=== PATIENT | female | born 1995 | race Caucasian/White ===

== ENCOUNTER 2017-05-22 17:02 | Observation (INO) | payer MEDICAID ==
[~2017-05-22] VITALS: Ht 160 cm; Wt 55.1 kg
[~2017-05-22 17:02] MED LIST: AMOXIL500 M1 PO; AMOXIL500 MG PO; BACTRIM DS 8001 TAB PO; CEPHALEXIN500 MG PO; FLINTSTONES COM1 CTB PO; IBUPROFEN400 MG PO; MOTRIN 400MG.400 MG PO; NICOTINE T21 MG/24 H TD; NOMEDS *; NOMEDS XX; PERCOCET 5/3251 EACH PO; PHENERGAN 25MG.25 MG PR; PNV-DHA1 SGL PO; PRENATAL PLUS1 TA1 PO; PRENTAL 1 PLUS1 TAB PO; ZOFRAN4 MG PO; Zofran4 MG PO
[2017-05-22 17:40] VITALS: BP 113/73
[2017-05-22] MEDS ORDERED: PRENATAL PLUS1 TA1 PO (17:44)
[2017-05-22] MEDS ORDERED: IRON325 M2 PO (17:45)
[2017-05-22 17:48] LABS: URINE BILIRUBIN - DIPSTICK NEGATIVE (NEG); URINE BLOOD NEGATIVE (NEG)
[2017-05-22 18:14] LABS: URINE SQUAMOUS CELLS TNTC #/hpf (0-5)
[2017-05-22 19:40] VITALS: BP 110/65
--- NOTE | 2017-05-23 08:20 | ACUTE CARE PROGRESS NOTE (QUA) ---
Progress Notes Subjective Date 05/23/17 Time 0816 Note She was admitted yesterday with labor. We attempted to stop labor with fluid bolus however she continued to have contractions. Her heart rate was slightly elevated in the 105-110 range so we could not give her Brethine. We started her on magnesium sulfate and she received a 4 g bolus and then 2 g an hour. She is no longer destiny and she feels a lot better. Her fibronectin was negative. She did have some contamination in her urine and we elected to start her on Ancef 1 g every 8 hours. She also received 12 mg IM of Celestone and she will receive a second dose later on this afternoon. We have stopped her magnesium sulfate and will see how she does over the next few hours. She is doing much better we will consider sending her home this afternoon. Patient/family reports: feeling better, no complaints Objective Findings Last VS-Temp:98.2 B/P:110/65 Pulse:109 Resp:18 SaO2: Last weight lbs:121 oz:6 K.055 Method:Floor Scales Laboratory Tests 05/23/17 0615: Magnesium 4.7 H 05/22/17 1725: Fibronectin NEGATIVE 05/22/17 1712: Urine Color YELLOW, Urine Appearance CLOUDY, Urine pH 7.0, Ur Specific [place] 1.020, Urine Protein TRACE H, Urine Ketones 2+ H, Urine Blood NEGATIVE, Urine Nitrate NEGATIVE, Urine Bilirubin NEGATIVE, Urine Urobilinogen 1.0, Ur Leukocyte Esterase 1+ H, Urine RBC NONE, Urine WBC 3-5, Ur Squamous Epith Cells TNTC, Urine Bacteria 4+, Urine Glucose NEGATIVE Microbiology 05/22 1712 URINE CC: Urine Culture - RES Exam General appearance: normal appearance, alert, awake, no acute distress Reviewed: vital signs, lab results Assessment/Plan Problem List 1. labor in third trimester Patient condition Improving, Stable Plan: continue current care This inpt stay is expected to cross 2 MNs from start of care No Comments: She seems to be doing much better this morning. She is not having any further episodes of contractions. The nonstress test is reactive. She has been eating and drinking. We have stopped her magnesium sulfate. We will see how she does over the next few hours. She will receive a second dose of Celestone prior to going home. at [id number]
[2017-05-23 08:30] VITALS: BP 104/52
--- NOTE | 2017-05-23 17:38 | Discharge Summary ---
Discharge Summary Admission date: 05/22/17 Discharge date: 05/23/17 Discharge diagnoses: labor Clinical note: She is a 22-year-old 5 para 4 who was 33 weeks gestational age. She came in having contractions and as result of that was admitted. Course in hospital: She was having regular contractions every 2 minutes and her cervix was found be 1-1/2 cm and 50 percent effaced. She was initially started on some IV fluids but this did not stop her contractions. Her heart rate was slightly elevated and as result of this we elected not to give her Brethine. We started her on magnesium sulfate. She received a 4 g Allis followed by 2 g an hour. She was observed overnight. She did receive Celestone as well as antibiotics. She has been off her magnesium sulfate all day and has had no further episodes of contractions. Plans for ongoing care: She is discharged home to follow-up with me in approximately a weeks' time. She' s been given her second dose of Celestone prior to discharge. Discharge medications She will continue with her vitamins and iron. DC/follow-up instructions She was given the usual instructions with respect to limiting her activity, and sexual activity. Condition at discharge Stable and improved at [id number]
--- OUTSIDE RECORDS SUMMARY | 2017-05-24 09:58 | External Medical Summary Rpt ---
Author Author , JEREMIAH DANIELS Address Unknown Phone [email or web address] Care Team Providers Care Coremaking Machine Setter Name Role Phone ABORDO, ALICE G, Unavailable Unavailable ABORDO, ALICE G AGOMAA, CAREN O, Unavailable Unavailable AGOMAA, CAREN O BESSON SUELLEN, BESSON Unavailable Unavailable SUELLEN LONI, YFN L, Unavailable Unavailable LONI, YFN L GILL, GILL Unavailable Unavailable GILL ALL, GILL ALL Unavailable Unavailable [facility] BURGER AND, BURGER Unavailable Unavailable AND CHIPPS NARESH & Unavailable Unavailable DUBILIER, CHIPPS NARESH & DUBILIER ELIEZER MARTINS Unavailable Unavailable MARTINS FRANCISCO J, MARTINS Unavailable Unavailable FRANCISCO J ELIEZER MARX MARTINS Unavailable Unavailable FRANCISCO J [facility], [facility] [place]available [place], [facility] Unavailable Unavailable THE INDEPENDENCE, [facility] ANESTH OF [facility], Unavailable Unavailable [facility] [place]available [place]available [place], [facility] [place] [facility] Unavailable Unavailable [place] [facility] JONATAN JOON, JONATAN Unavailable Unavailable JOON UMBERTO JOON, UMBERTO JOON Unavailable Unavailable GREISER HUNG, GREISER Unavailable Unavailable HUNG ROSS CHEN, Unavailable Unavailable ROSS CHEN PADMINI, NEREYDA Unavailable Unavailable PADMINI [facility] Unavailable Unavailable [place], [facility] Unavailable Unavailable CENTER, [facility] Unavailable Unavailable INC, [facility] JESSICA SHERON, Unavailable Unavailable JESSICA SHERON [facility], Unavailable Unavailable [facility] YURIY CARO Unavailable Unavailable SUELLEN CHRIS MONACO, Unavailable Unavailable CHRIS MONACO [facility], Unavailable Unavailable [facility] Unavailable Unavailable IM[facility]ING [facility], [facility] MARIA IV HUNG, MARIA Unavailable Unavailable IV HUNG MARIA IV HUNG, MARIA Unavailable Unavailable IV [facility] [place] REMY STACY, REMY Unavailable Unavailable STACY TONJA SHE, TONJA SHE Unavailable Unavailable TONJA SHE, TONJA SHE Unavailable Unavailable MARILYN MAJOR, Unavailable Unavailable MARILYN MAJOR [facility] Unavailable Unavailable SERVICES, [facility] SUMI CESAR, Unavailable Unavailable SUMI CESAR SAIMA SUELLEN, SAIMA Unavailable Unavailable SUELLEN [facility] Unavailable [facility] Unavailable Unavailable LAB, [facility] Unavailable Unavailable LAB, [facility] PICKLESIMER JR ZARINA, Unavailable Unavailable PICKLESIMER JR ZARINA PICKLESIMER JR ZARINA, Unavailable Unavailable PICKLESIMER JR ZARINA [facility] Unavailable Unavailable [facility], [facility] Unavailable Un[facility], [facility] Unavailable Unavailable [facility], [facility] QUEZADA JAM, QUEZADA Unavailable Unavailable JAM SCIFRES ANG, SCIFRES Unavailable Unavailable ANG SCIFRES ANG, SCIFRES Unavailable Unavailable ANG FRAZIER RY, FRAZIER RY Unavailable Unavailable SOKAN BAB, SOKAN BAB Unavailable Unavailable SOKAN, CLARIBEL O, Unavailable Unavailable SOKAN, CLARIBEL O [facility] Unavailable Unavailable [facility], [facility] Unavailable Unavailable [facility], [facility] SOTINGEANU CARLEEN, Unavailable Unavailable SOTINGEANU CARLEEN SOTINGEANU CARLEEN, Unavailable Unavailable SOTINGEANU CARLEEN [facility], Unavailable Unavailable [facility] Unavailable Unavailable GUARD DRIVER , [facility] Unavailable Unavailable [place], [facility] Unavailable Unavailable PHYSICIANS, [facility], Unavailable Unavailable [facility] JASWANT KWOK, MICHAUD Unavailable Unavailable RISSA HWANG, DAKOTA Unavailable Unavailable [facility] Unavailable Unavailable [facility], [facility] Un[facility]available [facility] [place] [facility] UTTER ADAME, UTTER ADAME Unavailable Unavailable [facility] Un[facility]available [facility] Unavailable Unavailable [facility] # Unavailable Unavailable [id number], [facility] # [id number] WEHRMAN III HUNG, Unavailable Unavailable WEHRMAN III HUNG WEHRMAN III HUNG, Unavailable Unavailable WEHRMAN III HUNG ANDREI SEA, WELLS SEA Unavailable Unavailable [facility] Unavailable Unavailable OF [place], [facility] Juliette RUFF, NASEEM, Unavailable Unavailable A C Purpose Continuity of Care Document - 06-10-2008 through 2016 Problems Code Diagnosis DOS Provider Status Z3480 ENC 03-21-2017 [facility]PER[facility]YS[facility]ANS OTH NORMAL GROUP PREG UNS TRIMESTER Z3492 ENC 02-19-2017 [facility] NORMAL IMAGING ASS UNS 2 TRIMESTER Z36 ENCOUNTER 02-19-2017 [facility] FOR [facility] SCREENING OF MOTHER Z3A20 20 WEEKS 02-19-2017 [facility] GESTATION MEDICAL OF IMAGING ASS Z113 ENCOUNTER 12-21-2016 [facility] SCREEN [facility] INFECTIONS SEXL MODE TRANSMISSN Z3481 ENC 12-21-2016 [facility] SUPERVISION [facility] OTH NORMAL 1 TRIMESTER H33276 UTERINE 11-29-2016 [facility] SIZE-DATE [facility] DISCREPANCY INC FIRST TRIMESTER Z3491 ENC 11-29-2016 [facility] SUPERVISION MEDICAL NORMAL IMAGING ASS UNS 1 TRIMESTER Z3A08 8 WEEKS 11-29-2016 [facility] GESTATION MEDICAL OF IMAGING ASS Z3201 ENCOUNTER 11-23-2016 [facility] FOR [facility] GROUP TEST RESULT POSITIVE N3289 OTHER 07-31-2016 ST. SPECIFIED [facility] DISORDERS ANNEL OF BLADDER R1013 EPIGASTRIC 07-31-2016 ST. PAIN [facility] ANNEL R197 DIARRHEA 07-31-2016 [facility] UNSPECIFIED [facility] K639 DISEASE OF 07-17-[address] [facility] INTESTINE GASTROENTER UNSPECIFIED OLOGY A Z720 TOBACCO USE 07-10-[address] 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 L309 DERMATITIS 12-04-2015 [facility] UNSPECIFIED [facility] INC O4393 UNSPECIFIED 10-21-2015 [facility] PLACENTAL NARESH & DISORDER DUBILIER THIRD TRIMESTER O720 THIRD-STAGE 10-21-2015 [facility] HEMORRHAGE [facility] O722 DELAYED AND 10-21-2015 [facility] SECONDARY [facility]YS[facility]ANS GROUP HEMORRHAGE O730 RETAINED 10-21-2015 [facility] PLACENTA PHYSICIANS WITHOUT GROUP HEMORRHAGE O80 ENCOUNTER 10-21-2015 [facility] FOR [facility]ANS FULL-TERM GROUP UNCOMPLICAT ED DELIVERY R0602 SHORTNESS 10-21-2015 [facility] Z370 SINGLE LIVE 10-21-2015 [facility] Z3A00 WEEKS OF 10-21-2015 [facility] GESTATION ANESTH OF OF THE BLUE NOT SPECIFIED Z3A39 39 WEEKS 10-21-2015 [facility] GESTATION [facility] OF INC Z9889 OTHER 10-21-2015 [facility] SPECIFIED MEDICAL POSTPROCEDU IMAGING ASS [facility] [id number] MAT CARE 09-27-2015 [facility] KNOWN/SUSP PHYSICIANS PLACNTL GROUP INSUFF 3RD TRI FET 1 V221 SUPERVISION 06-24-2015 [facility] OF OTHER PHYSICIANS NORMAL GROUP V2881 ENCOUNTER 06-15-2015 [facility] FOR MEDICAL ANATOMIC IMAGING ASS SURVEY 73909 OTHER 05-25-2015 [facility] SPECIFED PHYSICIANS COMPLICATIO GROUP N ANTEPARTUM V745 SCREENING 05-11-2015 [facility] EXAMINATION LLC FOR VENEREAL DISEASE 78299 UNSPEC 03-04-2015 [facility] HEMORRHAGE MEDICAL EARLY IMAGING ASS ANTEPARTUM 08289 UNSPECIFIED 03-04-2015 SOTINGEANU ANTEPARTUM CARLEEN HEMORRHAGE ANTEPARTUM 3670 HYPERMETROP 12-31-2014 SCIFRES ANG IA 3671 MYOPIA 12-25-2014 SCIFRES ANG 650 NORMAL 09-28-2014 [facility] DELIVERY PHYSICIANS GROUP 82841 OTH&UNS CRD 09-28-2014 [facility] ENTANGL [facility] W/O COMPRS INC COMP L&D DELIV 63530 RETAINED 09-28-2014 [facility] PLACENTA PHYSICIANS WITHOUT GROUP HEMORR PP COND/COMP 21455 RETN 09-28-2014 [facility] PORTIONS [facility] PLCNTA/MEMB INC W/O HEMORR DEL W/COMPL V270 OUTCOME OF 09-28-2014 [facility] DELIVERY [facility] SINGLE INC LIVEBORN 72251 ABNORMAL 07-17-2014 ELIEZER FRANCISCO J MATERNAL GLUCOSE TOLERANCE ANTEPARTUM V283 ENCOUNTER 05-27-2014 ELIEZER FRANCISCO J ROUTINE SCREEN MALFORMATIO N ULTRASONIC 6238 OTHER 02-10-2014 WEHRMAN III SPECIFIED HUNG NONINFLAMMA TORY DISORDER VAGINA V222 02-10-2014 [facility], MEDICAL INCIDENTAL IMAGING ASS 436 ACUTE BUT 11-24-2013 [facility] MEDICAL CEREBROVASC EQUIPME ULAR DISEASE 3480 CEREBRAL 11-22-2013 [facility] PH[facility] 10999 UNSPECIFIED 11-22-2013 TONJA SHE CEREBRAL ARTERY OCCLUSION W/INFARCT 80169 LEUKOCYTOSI 11-21-2013 MARIA IV S HUNG UNSPECIFIED 02379 UNSPEC 11-21-2013 [facility]&JIMENES AMBULANCE DEFICIT DUE CEREBRVASC DISEASE 03577 OTHER 11-21-2013 RADIOLOGY MALAISE AND ASSOCIATES FATIGUE [facility] 7850 UNSPECIFIED 11-21-2013 [facility] AMBULANCE TACHYCARDIA 67755 DYSPHAGIA 11-21-2013 MARIA IV UNSPECIFIED HUNG 7930 NONSPECIFIC 11-21-2013 [facility] ABN FNDNG RAD & OTH EXM SKULL & HEAD V7189 OBSERVATION 11-21-2013 [place] OTHER OF SPECIFIED [place] SUSPECTED PHY CONDITIONS 7242 LUMBAGO 11-20-2013 RADIOLOGY [facility] 08724 ESOPHAGEAL 11-11-2013 ST REFLUX [facility] PH[facility]ICIANS 7245 UNSPECIFIED 11-11-2013 ST BACKACHE [facility] PHYSIC[facility] 78978 ABDOMINAL 11-11-2013 ST PAIN, [facility] UNSPECIFIED PHYSICIANS SITE 632 MISSED 08-29-2013 [facility] [place] 26961 UNSPECIFIED 08-17-2013 ST. VIRAL [facility] INFECTION ANNEL IN CCE & UNS SITE 10557 OT CURRENT 08-17-2013 ST. MAT CONDS [facility] CLASSIFIABL ANNEL E ELSW ANTPRTM 08826 TOB USE D/O 08-17-2013 ST. COMP PG [facility] /PP ANNEL ANTEPARTM COND/COMP 02088 OTHER 06-24-2013 ST CHRONIC [facility] PAIN PHYSICIANS 81881 DIARRHEA 06-24-2013 ST [facility] PH[facility] V700 ROUTINE 06-24-2013 GENERAL [facility] EXAM@HEALTH CARE FACL 86664 NAUSEA WITH 01-23-2013 ST VOMITING [facility] PHYSICIANS 26900 ABDOMINAL 01-23-2013 ST PA[facility] EPIGASTRIC PHYSICIANS 6264 IRREGULAR 12-26-2012 [facility] MENSTRUAL HEALTH CYCLE CLINIC OF [place] V2549 SURVEILLANC 12-26-2012 [facility]OMEN'[facility] E OTH PREV HEALTH PRSC CLINIC OF CONTRACEPT [place] METHOD 6262 EXCESSIVE 12-19-2012 [facility] OR FREQUENT HEALTH CLINIC OF MENSTRUATIO [place] N 462 ACUTE 11-06-2012 [facility] V242 ROUTINE 10-02-2012 [facility] FOLLOW-UP 71197 OT 08-29-2012 [facility] PLACENTAL HEALTH CONDS CLINIC OF AFFECT [place] MANAGEMENT MOTH DELIV 46577 POOR 08-28-2012 [facility] GROWTH MGMT HEALTH MOTH CLINIC OF ANTPRTM [place] COND/COMP 57983 ABN MAT 07-01-2012 [facility] GLUCOSE [facility] TOLERANCE INC COMPL PG CB/PP UNS EOC 0794 HUMAN 06-19-2012 PATHOLOGY & PAPILLOMA CYTOLOGY VIRUS IN LAB CCE & UNS SITE 6160 CERVICITIS 06-19-2012 PATHOLOGY & AND CYTOLOGY ENDOCERVICI LAB TIS 24209 PAP SMER 06-19-2012 [facility] CERV HEALTH W/ATYPICAL CLINIC OF SQUAMOUS [place] CELLS UNDET 94103 OTH 06-19-2012 [facility] ABNORMAL HEALTH PAPANICOLAO CLINIC OF U SMEAR [place] CERVIX&CERV HPV 42108 DEHYDRATION 04-03-2012 [facility] 48354 MILD 04-03-2012 [facility] HYPEREMESIS EMERGENCY GRAVIDARUM SERVICES UNSPEC EPIS CARE 60113 MILD 04-03-2012 [facility] HYPEREMESIS [facility] GRAVIDARUM INC ANTEPARTUM V7242 01-15-2012 [facility] FELIPE EXAMINATION HEALTH OR TEST CENTER POSITIVE RESULT 58798 CERV HIGH 11-14-2011 PATHOLOGY & RISK HUMAN CYTOLOGY PAPILLOMAVI LAB MELISSA DNA TEST POS 19506 FIRST-DEGRE 10-05-2011 ELIEZER FRANCISCO J E PERINEAL LACERATION WITH DELIVERY 2859 UNSPECIFIED 10-04-2011 [facility] ANEMIA [facility] 76401 MATERNAL 10-04-2011 [facility] W/DELIVERY INC W/CURRENT PPC 46334 DECR 10-04-2011 ELIEZER MARX MOVMNTS MGMT MOTH ANTPRTM COND/COMP 45497 OTHER 10-04-2011 [facility] IMMEDIATE [facility] INC HEMORRHAGE W/DELIVERY V220 SUPERVISION 09-20-2011 ELIEZER FRANCISCO J OF NORMAL FIRST 5990 URINARY 03-27-2011 [facility] TRACT [facility] INFECTION INC SITE NOT SPECIFIED 71016 INFECTIONS 03-27-2011 [facility] EMERGENCY GENITOURINA SERVICES RY TRACT ANTEPARTUM 1121 CANDIDIASIS 02-28-2011 PATHOLOGY & OF [facility] CYTOLOGY AND VAGINA LAB 2662 OTHER 02-16-2011 [facility] FELIPE B-COMPLEX HEALTH DEFICIENCIE CENTER S 7802 SYNCOPE AND 08-08-2010 [facility] 94489 VOMITING 08-08-2010 [facility] AL[facility] 4619 ACUTE 03-11-2010 FAM[facility] SINUSITIS, MEDICAL UNSPECIFIED SPECIALITY CLINIC 4737 ALLERGIC 03-11-2010 FAMILY RHINITIS MEDICAL CAUSE SPECIALITY UNSPECIFIED CLINIC 78130 HORDEOLUM 01-12-2010 [facility] EXTERNUM MEDICAL [facility] CLINIC 4610 ACUTE 01-12-2010 FAM[facility] MAXILLARY MEDICAL SINUSITIS SPECIALITY CLINIC 49719 ACUTE 01-12-2010 [facility] 64024 CHEST PAIN 10-15-2009 [facility]NSPECIFIED [facility] 9945 EXHAUSTION 10-15-2009 [facility] DUE TO [facility] EXERTION 15954 NAUSEA 08-25-2009 [facility]ONE [facility] 22387 CLOSED 07-18-2009 [facility] FRACTURE [facility] PHALANX OR PHALANGES HAND 02415 OPEN 07-18-2009 [place] [facility] DISTAL PHALANX OR PHALANGES HAND 56402 PAIN IN 02-08-2009 [facility] JOINT, MEDICAL SHOULDER IMAGING REGION ASS[facility] 97379 PAIN IN 02-08-2009 [facility] JOINT, MEDICAL FOREARM IMAGING ASSOCIATES 23565 OTHER 02-08-2009 [facility] TENOSYNOVIT EMERGENCY IS OF HAND SERVICES AND WRIST ASSOCIATES 6822 CELLULITIS 06-10-2008 [facility] AND ABSCESS [facility] OF TRUNK INC 6869 UNSPEC 06-10-2008 [facility] SKIN&SUBCUT ANEOUS TISSUE F41.1 Generalized anxiety disorder G89.29 Other chronic pain M25.539 Pain in unspecified wrist M54.5 Low back pain N93.9 ABNORMAL UTERINE AND VAGINAL BLEEDING, UNSPECIFIED O20.0 THREATENED R10.9 Unspecified abdominal pain Z33.1 STATE, INCIDENTAL Medications Na ND Rx Da Fi Fi Am Da Di Ph RX Ph St me C No te ll ll ou ys ag ar # ys at rm s nt no ma ic us Or Da si cy ia de te s n re d FE 57 05 06 30 30 00 CL Ac RR 66 -0 -0 .0 00 IN ti OU 40 8- 2- 00 00 IC ve S 07 20 20 43 BARRIENTOS 11 17 17 05 PH LF 0 12 AR AT MA E CY 32 5 MG TA BL ET FE 64 07 09 6 30 30 EA 23 CL Ac RR 37 -1 -[address] 27 AR ti OU 60 2- 8- 00 SI 26 KE ve S 80 20 20 DE BARRIENTOS 91 11 11 DE LF 0 PH RE AT AR K E MA J 32 CY 5 MG OF TA CY BL NT ET HI AN A FE 64 07 08 6 30 30 EA 23 CL Ac RR 37 -1 -[address] 27 AR ti OU 60 2- 3- 00 SI 26 KE ve S 80 20 20 DE BARRIENTOS 91 11 11 DE LF 0 PH RE AT AR K E MA J 32 CY 5 MG OF TA CY BL NT ET HI AN A FE 00 07 07 6 30 30 EA 23 CL Ac RR 67 -1 -[address] 27 AR ti OU 70 2- 2- 00 SI 26 KE ve S 07 20 20 DE BARRIENTOS 01 11 11 DE LF 0 PH RE AT AR K E MA J 32 CY 5 MG OF TA CY BL NT ET HI AN A AM 00 06 06 0 21 7 CL 24 GA Ac OX 78 -1 -1 .0 IN 03 IN ti IC 12 3- 4- 00 IC 69 EY ve IL 61 20 20 LI 30 11 11 PH MT N 5 AR CH 50 MA AE 0 CY L MG S LL CA C PS UL E WY 65 05 05 9 30 30 WA 71 CL Ac EN 16 -0 -1 .0 L- 18 AR ti AT 20 6- 5- 00 MA 12 KE ve AL 66 20 20 RT 7 [address] 0 PH RE US AR K MA J TA CY BL # ET 10 05 91 LO 45 05 05 2 30 30 BR 34 AG Ac RA 80 -2 -2 .0 EA 72 OM ti TA 20 8- 8- 00 TH 25 AA ve DI 65 20 20 IT NE 08 10 10 T JE 7 WY BARRIENTOS 10 ES S CR O MG IP TI TA ON BL ET CE NT ER WY 50 05 05 0 70 7 BR 34 AG Ac ED 38 -2 -2 .0 EA 72 OM ti NI 30 8- 8- 00 TH 26 AA ve SO 04 20 20 IT LO 00 10 10 T JE NE 4 WY BARRIENTOS 5 ES S CR O MG IP /5 TI ON ML CE SO NT LN ER AM 66 05 05 0 20 10 BR 34 AG Ac OX 68 -2 -2 0. EA 72 OM ti -C 51 8- 8- 00 TH 27 AA ve LA 01 20 20 0 IT V 20 10 10 T JE 40 2 WY BARRIENTOS 0- ES S 57 CR O IP MG TI /5 ON ML CE NT BARRIENTOS ER SP GE 24 03 03 0 5. 7 BR 34 AG Ac NT 20 -3 -3 00 EA 48 OM ti AM 80 1- 1- 0 TH 60 AA ve IC 58 20 20 IT IN 06 10 10 T JE 0 WY BARRIENTOS 0. ES S 3% CR O IP EY TI E ON DR OP CE S NT ER 00 03 03 0 5. 5 BR 34 AG Ac 14 -3 -3 00 EA 48 OM ti 31 1- 1- 0 TH 61 AA ve 47 20 20 IT 70 10 10 T JE 1 WY BARRIENTOS ES S CR O IP TI ON CE NT ER 68 03 03 0 28 14 BR 34 WI Ac 82 -2 -2 .0 EA 47 LL ti 00 9- TH 97 IA ve 06 20 20 IT MS 30 10 10 T 9 WY AL ES LY CR SO IP N TI ON CE NT ER 59 03 03 0 20 10 BR 34 WI Ac 70 -2 -2 0. EA 47 LL ti 20 TH 98 IA ve 80 20 20 0 IT MS 01 10 10 T 6 WY AL ES LY CR SO IP N TI ON CE NT ER LO 45 03 03 3 30 30 BR 34 AB Ac RA 80 -0 -0 .0 EA 36 OR ti TA 20 5- 5- 00 TH 70 DO ve DI 65 20 20 IT NE 08 10 10 T JR 7 WY 10 ES ME CR LE MG IP CI TI O TA ON G BL ET CE NT ER AM 00 03 03 0 28 14 BR 34 DE Ac OX 14 -0 -0 .0 EA 36 LO ti IC 39 5- 5- 00 TH 71 NG ve IL 95 20 20 IT LI 10 10 10 T OL N 1 WY IV 87 ES ER 5 CR K MG IP TI TA ON BL ET CE NT ER MA 51 01 02 00 59 1 EA 16 WR Ac LA 67 -3 -[address] 17 IG ti TH 25 0- 1- 00 SI 18 HT ve IO 27 20 20 DE N 70 10 10 AR 0. 4 PH DY 5% AR C MA LO CY TI ON OF CY NT HI AN A LO 45 11 11 00 14 14 TYRELL 33 AB Ac RA 80 -1 -[address] 87 OR ti TA 20 ON 64 DO ve DI 65 20 20 NE [address] HUTTON 7 UG 10 ME IN LE MG C CI O TA G BL ET WY 00 11 11 00 20 4 TYRELL 33 AB Ac OM 78 -1 -[address] 87 OR ti ET 11 ON 65 DO ve MILLS 83 20 20 ZI [address] HUTTON NE 1 UG ME 25 IN LE C CI MG O G TA BL ET RA 53 11 11 00 20 10 TYRELL 33 AB Ac NI 74 -1 -[address] 87 OR ti TI 60 1- 9- 00 ON 66 DO ve DI 25 20 20 NE [address] HUTTON 0 UG 15 ME 0 IN LE MG C CI O TA G BL ET LO 45 10 11 00 14 14 TYRELL 33 AB Ac RA 80 -2 -[address] 80 OR ti TA 20 3- 5- 00 ON 02 DO ve DI 65 20 20 NE [address] HUTTON 7 UG 10 ME IN LE MG C CI O TA G BL ET TA 00 10 11 00 10 5 TYRELL 33 AB Ac MT 00 -2 -[address] 80 OR ti FL 40 3- 5- 00 ON 01 DO ve U 80 20 20 [address] HUTTON 5 UG MG ME IN LE CA C CI PS O UL G E CE 00 10 10 00 30 10 TYRELL 33 GR Ac PH 09 -0 -[address] 72 EN ti AL 33 5- 2- 00 ON 38 TZ ve EX 14 20 20 IN [address] BINGHAM 1 UG RN 50 ER 0 IN MG C CA PS UL E AC 00 10 10 00 12 3 TYRELL 33 GR Ac ET 09 -0 -[address] 72 EN ti AM 30 5- 2- 00 ON 39 TZ ve IN 15 20 20 OP [address] BINGHAM HE 0 UG RN N- ER CO IN D C #3 TA BL ET 60 05 06 00 12 5 EA 12 RI Ac 25 -2 -[address] 89 SH ti 80 6- 4- 00 SI 30 ER ve 23 20 20 0 DE 91 09 09 RI 6 PH CH AR AR MA D CY OF CY NT HI AN A 66 11 12 00 20 10 EA 10 WR Ac 99 -1 -[address] 30 IG ti 30 7- 4- 00 SI 45 HT ve 53 20 20 DE 40 08 08 AR 2 PH DY AR C MA CY OF CY NT HI AN A BARRIENTOS 53 08 09 00 28 14 EA 99 No Ac LF 48 -2 -[address] 24 t ti AM 90 7- 1- 00 SI 20 Av ve ET 14 20 20 DE ai HO 60 08 08 la XA 1 PH bl ZO AR e LE MA -T CY MP OF DS CY NT TA HI BL AN ET A Procedures Procedure DOS [place] [address] [facility] 7 MEDICAL AFTER 1ST IMAGING TRIMEST ASS 1/1[place] [address]11 [facility] UTERUS 7 [facility] W/DETAIL INC INC KARIN 1ST GESTATION COLLECTIO 41157 [facility] LOMELI N VENOUS 7 [facility] BLOOD INC INC VENIPUNCT URE IADNA 18673 [facility] CHLAMYDIA 7 [facility] TRACHOMAT IS AMPLIFIED PROBE TQ CYTP C/V 65248 [facility] AUTO THIN 7 [facility] LYR PREPJ SCR MNL RESCR PHYS IADNA 07497 [facility] NEISSERIA 7 [facility] GONORRHOE AE AMPLIFIED [place] T[place] PREG 04956 [facility] L[facility]ELI UTERUS 7 [facility] REAL TIME INC INC W/IMAGE DCMTN TRANSVAG URINE 53133 [facility] MARTINS 7 PHYSICIAN TEST S GROUP VISUAL COLOR CMPRSN METHS DRUG TEST 46042 [facility] ELIEZER PRSMV 7 PHYSICIAN QUAL DIR S GROUP OPTICAL OBS PER DAY LOCM Q9967 [facility] 300-399 6 [facility] MG/ML ANNEL ANN[place] [address] [facility] ABDOMEN & 6 [facility] PELVIS ANNEL ANNEL W/CONTRAS T MATERIAL SPECIAL 51879 [facility] STAIN 6 GROUP 1 GASTROENT GASTROENT MICROORGA EROLOGY A EROLOGY A NISMS I&R SPCL STN 86306 [facility] 2 I&R 6 EXCPT GASTROENT GASTROENT MICROORG/ EROLOGY A EROLOGY A ENZYME/IM CYT EGD 56514 [facility] TRANSORAL 6 SHERON BIOPSY GASTROENT SINGLE/[place] [address] [facility] SURG 6 PATHOLOGY GASTROENT GASTROENT EROLOGY A EROLOGY A GROSS&[place] [address] AMYLASE 6 [facility] [address] [place] [address] THYROID 6 [facility] STIMULATI MED CTR MED CTR NG GUARD DR[address] [address] LIPASE 6 [facility] MED CTR GUARD [address] COMPRE[address] SIVE 6 [facility] METABOLIC MED CTR MED CTR PANEL GUARD DRIVER ST GUARD DRIVER ST BLOOD [address] COUNT 6 [facility] COMPLETE MED CTR MED CTR AUTO&AUTO GUARD DRIVER ST GUARD DRIVER ST DIFRNTL WBC COLLECTIO [address] N VENOUS 6 [facility] BLOOD MED CTR MED CTR VENIPUNCT GUARD DRIVER ST GUARD DRIVER ST URE OPHTH [address] [facility] [facility] MEDICAL 6 ANG ANG XM&EVAL COMPRHNSV ESTAB PT 1/> CURETTAGE 35174 [facility] ELIE[facility]ER 6 PHYSICIAN FRANCISCO J POSTPARTU S GROUP M VAGINAL 92272 [facility] DELIVERY 6 PHYSICIAN FRANCISCO J ONLY S GROUP W/POSTPAR ERINN CARE ECG 47719 SHILPA MASSEY ROUTINE 6 SUELLEN SUELLEN ECG W/LEAST 12 LDS I&R ONLY NEURAXIAL 42913 [facility] 6 ANESTH JAIDEN ANALG/ANE OF THE S PLND BLUE VAGINAL DELIVERY RADIOLOGI 28966 [facility] GILL ALL C 6 MEDICAL EXAMINATI IMAGING ON CHEST ASS SINGLE VIEW FRONTAL EXTRACTIO [id number] [facility] L[facility] N POC 6 [facility] INC INC NATURAL/A RTIF OPENING DELIVERY [id number] YANI LOMELI PRODUCTS 6 [facility] INC CONCEPTIO [place]TERNAL L[place] V 01317 [facility] REMY SURG 6 NARESH & STACY PATHOLOGY DUBILIER GROSS&JOON ROSCOPIC EXAM PARTICLE 54536 YANI L[facility]I AGGLUTINA 5 [facility] TION INC INC SCREEN EACH ANTIBODY HANDLG&/O 33017 [facility] R CONVEY 5 PHYSICIAN FRANCISCO J OF SPEC S GROUP FOR TR OFFICE TO LAB DOPPLER 31663 [facility] VELOCIMET 5 PHYSICIAN FRANCISCO J RY S GROUP UMBILICAL ARTERY US PREG 90133 [facility] UTERUS 5 PHYSICIAN FRANCISCO J REAL TIME S GROUP F/U TRNSABDL PER FETUS 73662 [facility] BIOPHYSIC 5 PHYSICIAN FRANCISCO J AL S GROUP PROFILE W/O NON-STRES [place] TESTING [place] PREG 46615 [facility] UTERUS 5 MEDICAL [place] AFTER 1ST IMAGING TRIMEST ASS GESTATION US PREG 64686 Y[facility] L[facility]ELI UTERUS 5 [facility] W/DETAIL INC INC KARIN 1ST GESTATION [place] PREG 64324 [facility] UTERUS 5 PHYSICIAN FRANCISCO J REAL TIME S GROUP W/IMAGE DCMTN TRANSVAG CYTP C/V 37880 [facility], AUTO THIN 5 [facility] LYR PREPJ SCR MNL RESCR PHYS IADNA 17785 [facility], [facility], CHLAMYDIA 5 [facility] TRACHOMAT IS AMPLIFIED PROBE TQ IADNA 33336 [facility], NEISSERIA 5 [facility] GONORRHOE [place] 95665 [facility] G[facility] ALL UTERUS 5 MEDICAL REAL TIME IMAGING W/IMAGE ASS DCMTN TRANSVAG FITTING 75118 SCIF[facility] SCIFRES SPECTACLE 5 ANG ANG S XCPT APHAKIA MONOFOCAL SPHERE V2100 SCIFRES SCIFRES SINGLE 5 ANG ANG VISION PLANO +/- 4.00 PER LENS FRAMES V2020 SCIFRES SCIFRES PURCHASES 5 ANG ANG SCRATCH V2760 SCIFRES SCIFRES RESISTANT 5 ANG ANG COATING PER LENS LENS V2784 SCIFRES SCIFRES POLYCARBO 5 ANG ANG CAMI OR EQUAL ANY INDEX PER LENS OPHTH 27268 SCIFRES SCIFRES MEDICAL 5 ANG ANG XM&EVAL COMPRE NEW PT 1/> VST NEURAXIAL 79415 [facility] 4 ANESTH JAIDEN ANALG/ANE OF THE S PLND BLUE VAGINAL DELIVERY VAGINAL 64030 [facility] DELIVERY 4 PHYSICIAN FRANCISCO J ONLY S GROUP W/POSTPAR ERINN CARE OTHER 7359 YANI LOMELI MANUALLY 4 [facility] ASSISTED INC INC DELIVERY MANUAL 754 YANI LOMELI REMOVAL 4 [facility] OF INC INC RETAINED PLACENTA CUL BACT 07652 COMBINED COMBINED XCPT 4 PHYSICIAN PHYSICIAN URINE S LA S LA BLOOD/STO OL AEROBIC ISOL GLUCOSE 78564 YANI YANI TOLERANCE 4 [facility] TEST GTT INC INC 3 SPECIMENS GLUCOSE 67649 YANI LOMELI TOLERANCE 4 [facility] EA ADDL INC INC BEYOND 3 SPECIMENS URNLS DIP 75478 YANI YANI 4 [facility] STICK/TAB INC INC LET RGNT NON-AUTO W/O MICRSCP GLUCOSE 16371 MARTINS MARTINS POST 4 FRANCISCO J FRANCISCO J GLUCOSE DOSE US PREG 59443 MARTINS MARTINS UTERUS 4 FRANCISCO J FRANCISCO J AFTER TRIMEST GESTATION US PREG 09497 MARTINS MARTINS UTERUS 4 FRANCISCO J FRANCISCO J REAL TIME [place] [address] TAMIKO RODRIGUEZUTCHER 4 MEDICAL [place]OVA[place] UTERUS 14 IMAGING WK ASS TRANSABDL GESTAT ANTIBODY 73569 COMBINED COMBINED CHLAMYDIA 4 PHYSICIAN PHYSICIAN S LA S LA CUL BACT 40678 COMBINED COMBINED XCPT 4 PHYSICIAN PHYSICIAN URINE S LA S LA BLOOD/STO OL AEROBIC ISOL WALKER E0143 [place] FOLDING 4 HOME HOME WHEELED MEDICAL MEDICAL ADJUSTABL EQUIPME EQUIPME E/FIXED HEIGHT ELECTROEN 46010 TONJA SHE TONJA SHE CEPHALOGR 4 AM W/REC AWAKE&[place] [address] [facility] HEAD/BRAI 4 Y OF [place]UE[place] N W/[place] [address] RADIOLOGY [facility] HEAD/BRAI 4 N W/O ASSOCIATE CONTRAST S OF NOTH MATERIAL MRI BRAIN 27153 VAGAL ACH VAGAL ACH BRAIN 4 STEM W/O CONTRAST MATERIAL RADIOLOGI 18387 [facility] 4 Y OF SUELLEN [facility] PHY SINGLE VIEW FRONTAL CRITICAL 80354 MARIA IV MARIA IV CARE 4 HUNG HUNG ILL/INJUR ED PATIENT INIT 30-74 MIN AMB A0427 RURAL/MET RURAL/MET SERVICE 4 RO RO ALS AMBULANCE AMBULANCE [place] [address] RADIOLOGY RADIOLOGY ANGIOGRAP 4 HY HEAD ASSOCIATE ASSOCIATE W/CONTRAS S OF [facility] S OF [facility] T/NONCONT RAST ALS A0398 RURAL/MET RURAL/MET ROUTINE 4 RO RO DISPOSABL AMBULANCE AMBULANCE E SUPPLIES GROUND A0425 RURAL/MET RURAL/MET MILEAGE 4 RO RO PER AMBULANCE AMBULANCE STATUTE MILE ECHO 10830 [facility]-T 4 Y OF AND 2D [facility] W/WOM-MOD I PHY E COMPL SPEC&[place] [address] RADIOLOGY WELLS SEA ANGIOGRAP 4 HY NECK ASSOCIATE W/CONTRAS S OF [facility] T/NONCONT RAST MRI 07727 RADIOLOGY SAIMA SPINAL 4 SUELLEN CANAL ASSOCIATE LUMBAR S OF [facility] W/O CONTRAST MATERIAL RADEX 13507 RADIOLOGY QUEZADA SPINE 4 JAM LUMBOSACR ASSOCIATE AL 2/3 S OF [facility] VIEWS URINE 37948 ST U[facility]ER ADAME 4 SNEHA TEST VISUAL PHYSICIAN COLOR S CMPRSN METHS BASIC 81257 YANI LOMELI METABOLIC 3 [facility] PANEL INC INC CALCIUM TOTAL TX MISSED 27192 [facility] MARTINS 3 [facility] [place] SURGICAL ANESTHESI 03820 [facility] 3 ANESTH JAIDEN INCOMPLET OF THE E/[place] [address] YANI LOMELI INFUSION 3 [facility] THERAPY INC INC PROPHYLAX IS/DX EA HOUR BLOOD 47095 YANI LOMELI COUNT 3 [facility] COMPLETE INC INC AUTO&[place] [address] PATHOLOGY REMY SURG 3 & STACY PATHOLOGY CYTOLOGY LAB GROSS&JOON ROSCOPIC EXAM INJECTION J2405 YANI LOMELI 3 [facility] ONDANSETR INC INC ON HCL PER 1 MG US PREG 55519 [facility] UTERUS 3 [facility] J REAL TIME CLINIC OF W/IMAGE [place] DCMTN TRANSVAG CUL BACT 27087 COMBINED COMBINED XCPT 3 PHYSICIAN PHYSICIAN URINE S LA S LA BLOOD/STO OL AEROBIC ISOL ANTIBODY 35928 COMBINED COMBINED CHLAMYDIA 3 PHYSIC[place] [address] GAMMAGLOB 3 [facility]IN [facility] [facility] IGD IGG CENTER CENTER IGM EACH HEMOGLOBI [address] N 3 [facility] GLYCOSYLA [facility] LEYLA A1C CENTER CENTER BLOOD [address] COUNT 3 [facility] COMPLETE MEDICAL MEDICAL AUTO&AUTO C[place] [address] TRIIODOTH [address] [facility] YRON[address] [facility] T3 FREE CENTER CENTER IMMUNOASS [address] AY 3 [facility] ANALYTE [facility] QUAL/SEMI CENTER CENTER QUAL MULTIPLE STEP COMPREHEN [address] SIVE 3 [facility] METABOLIC MEDICAL MEDICAL PANEL CENTER CENTER COLLECTIO [address] ST UTTER ADAME N VENOUS 3 [facility] BLOOD VENIPUNCT PHYSICIAN URE S ANTIBODY [address] HELICOBAC [address] [facility] [address] [facility] [place] [address] FREE 3 [facility] THYROXINE [facility] [place] [address] THYROID 3 [facility] STIMULATI [facility] [place] [address] [facility] M[facility] TRANSVA 3 [facility] CLINIC OF [place] CYTP C/V 91349 PICKLESIM PICKLESIM AUTO THIN 2 ER JR ZARINA ER JR ZARINA LYR PREPJ SCR MNL RESCR PHYS BLOOD 58561 YANI LOMELI COUNT 2 [facility] COMPLETE INC INC AUTO&AUTO DIFRNTL WBC THERAPEUT 31077 YANI LOMELI IC 2 [facility] INJECTION INC INC IV PUSH EACH NEW DRUG URNLS DIP 27985 YANI LOMELI 2 [facility] STICK/TAB INC INC LET REAGENT AUTO MICROSCOP Y URINE 35506 YANI LOMELI 2 [facility] TEST INC INC VISUAL COLOR CMPRSN METHS BASIC 88791 YANI LOMELI METABOLIC 2 [facility] PANEL INC INC CALCIUM TOTAL NEURAXIAL 98822 [facility] 2 ANESTH JAIDEN ANALG/ANE OF THE S PLND BLUE VAGINAL DELIVERY VAGINAL 80065 [facility] DELIVERY 2 [facility] ONLY CLINIC OF W/POSTPAR [place] ERINN CARE OTHER 7359 YANI LOMELI MANUALLY 2 [facility] ASSISTED INC INC DELIVERY US PREG 66702 [facility] M[facility] UTERUS 2 [facility] REAL TIME CLINIC OF F/U [place] TRNSABDL PER FETUS 08053 [facility] M[facility] BIOPHYSIC 2 [facility] AL CLINIC OF PROFILE [place] W/O NON-STRES S TESTING DOPPLER 20409 [facility] VELOCIMET 2 [facility] RY [facility]INIC OF UMBILICAL [place] ARTERY DOPPLER 72482 [facility] M[facility] VELOCIMET 2 [facility] UMBILICAL [place] ARTERY 26496 [facility] M[facility] BIOPHYSIC 2 [facility] AL CLINIC OF PROFILE [place] W/O NON-STRES S TESTING US PREG 25417 [facility] UTERUS 2 [facility] REAL TIME CLINIC OF F/U [place] TRNSABDL PER FETUS CUL BACT 39602 COMBINED COMBINED XCPT 2 PHYSICIAN PHYSICIAN URINE S LA S LA BLOOD/STO OL AEROBIC ISOL US PREG 07313 [facility] M[facility] UTERUS 2 [facility] REAL TIME CLINIC OF F/U [place] TRNSABDL PER FETUS 77656 [facility] M[facility] BIOPHYSIC 2 [facility] AL CLINIC OF PROFILE [place] W/O NON-STRES S TESTING DOPPLER 69401 [facility] VELOCIMET 2 [facility] UMBILICAL [place] ARTERY GLUCOSE 61970 YANI LOMELI TOLERANCE 2 [facility] TEST GTT INC INC 3 SPECIMENS GLUCOSE 71757 [facility] M[facility] TOLERANCE 2 [facility] TEST GTT CLINIC OF 3 [place] SPECIMENS DOPPLER 66849 [facility] M[facility] VELOCIMET 2 [facility] RY [facility]IC OF UMBILICAL [place] ARTERY 76074 [facility] BIOPHYSIC 2 [facility] AL CLINIC OF PROFILE [place] W/O NON-STRES S TESTING US PREG 51620 [facility] UTERUS 2 [facility] REAL TIME CLINIC OF F/U [place] TRNSABDL PER FETUS COLPOSCOP 67266 [facility] M[facility] Y CERVIX 2 [facility] J ENDOCERVI CLINIC [place] [address] PATHOLOGY UMBERTO JOON SURG 2 & PATHOLOGY CYTOLOGY LAB GROSS&JOON ROSCOPIC EXAM US PREG 96433 [facility] M[facility] UTERUS 2 [facility] AFTER 1ST CLINIC [place] [address] YANI LOMELI ESTRIOL 2 [facility] INC INC GONADOTRO 64685 YANI LOMELI PIN 2 [facility] CHORIONIC INC INC QUANTITAT EUNICE ALPHA-FET 84448 YANI LOMELI OPROTEIN 2 [facility] [place] [address] YANI LOMELI INFUSION 2 [facility] THERAPY/P INC INC ROPHYLAXI S /DX 1ST TO 1 HR THERAPEUT 65996 YANI LOMELI IC 2 [facility] INJECTION INC INC IV PUSH EACH NEW DRUG URNLS DIP 87262 YANI LOMELI 2 [facility] STICK/TAB INC INC LET REAGENT AUTO MICROSCOP Y BLOOD 14827 YANI LOMELI COUNT 2 [facility] COMPLETE INC INC AUTO&AUTO DIFRNTL WBC BASIC 70494 YANI LOMELI METABOLIC 2 [facility] PANEL INC INC CALCIUM TOTAL US PREG 18873 [facility]EN'S ELIEZER UTERUS 2 [facility] REAL TIME CLINIC OF W/IMAGE [place] DCMTN TRANSVAG CUL BACT 40068 COMBINED COMBINED XCPT 2 PHYSICIAN PHYSICIAN URINE S LA S LA BLOOD/STO OL AEROBIC ISOL ANTIBODY 83887 COMBINED COMBINED CHLAMYDIA 2 PHYSICIAN PHYSICIAN S LA S LA URINE 17303 YANI LOMELI 2 [facility] CENTER VISUAL COLOR CMPRSN METHS IADNA 58507 PATHOLOGY REMY PAPILLOMA 2 & STACY VIRUS CYTOLOGY HUMAN LAB AMPLIFIED PROBE TQ CYTP C/V 51267 PATHOLOGY REMY AUTO THIN 2 & STACY LYR CYTOLOGY PREPJ SCR LAB MNL RESCR PHYS CYTP 89288 PATHOLOGY REMY CERVICAL/ 2 & STACY VAGINAL CYTOLOGY REQ LAB INTERP PHYSICIAN NEURAXIAL 66912 [facility] NEREYDA LABOR 1 ANESTH PADMINI ANALG/ANE OF THE S PLND BLUE VAGINAL DELIVERY VAGINAL 30697 ELIEZER MARTINS DELIVERY 1 FRANCISCO J FRANCISCO J ONLY W/POSTPAR ERINN CARE REPAIR OF 7569 YANI LOMELI OTHER 1 [facility] CURRENT INC INC OBSTETRIC LACERATIO N US PREG 63570 MARTINS MARTINS UTERUS 1 FRANCISCO J FRANCISCO J REAL TIME F/U TRNSABDL PER FETUS 69423 MARTINS MARTINS BIOPHYSIC 1 [facility] J FRANC[facility] J AL PROFILE NON-STRES S TESTING DOPPLER 76086 MARTINS MARTINS VELOCIMET 1 [facility] J FRANCISCO J RY UMBILICAL ARTERY DOPPLER 82950 MARTINS MARTINS VELOCIMET 1 [facility] J FRANCISCO J RY UMBILICAL ARTERY 57013 MARTINS MARTINS BIOPHYSIC 1 [facility] J FRANCISCO J AL PROFILE NON-STRES S TESTING US PREG 17209 MARTINS MARTINS UTERUS 1 [facility]CO J FRANCISCO J REAL TIME F/U TRNSABDL PER FETUS US PREG 53199 [facility] M[facility] UTERUS 1 [facility] REAL TIME CLINIC OF F/U [place] TRNSABDL PER FETUS 59216 [facility] M[facility] BIOPHYSIC 1 [facility] AL CLINIC OF PROFILE [place] W/O NON-STRES S TESTING DOPPLER 51997 [facility] VELOCIMET 1 [facility] RY CLINIC OF UMBILICAL [place] ARTERY CUL BACT 86602 COMBINED COMBINED XCPT 1 PHYSICIAN PHYSICIAN URINE S LA S LA BLOOD/STO OL AEROBIC ISOL DOPPLER 49322 MARTINS MARTINS VELOCIMET 1 [facility] J FRANCISCO J RY UMBILICAL ARTERY 02131 MARTINS MARTINS BIOPHYSIC 1 [facility]ANC[facility]CO J FRANCISCO J AL PROFILE W/O NON-STRES S TESTING US PREG 12430 ELIEZER LINKE UTERUS 1 FRANCISCO J FRANCISCO J REAL TIME F/U TRNSABDL PER FETUS GLUCOSE 53226 YANI LOMELI TOLERANCE 1 [facility] TEST GTT INC INC 3 SPECIMENS GLUCOSE 93514 [facility] M[facility] TOLERANCE 1 [facility] J TEST GTT CLINIC OF 3 [place] SPECIMENS US PREG 54939 WOMEN'S ELIEZER UTERUS 1 [facility] AFTER 1ST CLINIC OF TRIMEST [place] [address] YANI LOMELI ESTRIOL 1 [facility] INC INC GONADOTRO 56286 YANI LOMELI PIN 1 [facility] CHORIONIC INC INC QUANTITAT EUNICE ALPHA-FET 85116 YANI LOMELI OPROTEIN 1 [facility] SERUM INC INC URNLS DIP 26289 YANI LOMELI 1 [facility] STICK/TAB INC INC LET REAGENT AUTO MICROSCOP Y CULTURE 63772 YANI LOMELI BACTERIAL 1 [facility] INC INC QUANTTATI VE COLONY COUNT URINE URINE 04338 YANI LOMELI 1 [facility] TEST INC INC VISUAL COLOR CMPRSN METHS US PREG 17712 [facility] ELIEZER UTERUS 1 [facility] J REAL TIME CLINIC OF W/IMAGE [place] DCMTN TRANSVAG IADNA 72136 PATHOLOGY PATHOLOGY CHLAMYDIA 1 & & CYTOLOGY CYTOLOGY TRACHOMAT LAB LAB IS AMPLIFIED PROBE TQ CYTP C/V 07105 PATHOLOGY PATHOLOGY AUTO THIN 1 & & LYR CYTOLOGY CYTOLOGY PREPJ SCR LAB LAB MNL RESCR PHYS IADNA 89753 PATHOLOGY PATHOLOGY NEISSERIA 1 & & CYTOLOGY CYTOLOGY GONORRHOE LAB LAB AE AMPLIFIED PROBE TQ URINE 81216 YANI LOMELI 1 [facility] HE[facility] TEST CENTER CENTER VISUAL COLOR CMPRSN METHS RADIOLOGI 53346 [place] LONI, C EXAM 0 [facility] YFN L CHEST 2 LLC VIEWS FRONTAL&L ATERAL IAADIADOO 31008 FAMILY [place], 9 MEDICAL ALICE G INFLUENZA SPECIALIT Y CLINIC RADEX 25496 [place] HAND 9 MED CTR MED CTR MINIMUM 3 VIEWS AVULSION 04534 [facility] [place], NAIL 9 [facility] [employer] PARTIAL/C OMPLETE SIMPLE 1 URINE 16111 YANI LOMELI 9 [facility] TEST INC INC VISUAL COLOR CMPRSN METHS RADEX 43406 YANI LOMELI WRIST 9 [facility] COMPLETE INC INC MINIMUM 3 VIEWS RADEX 06716 YANI LOMELI WRIST 2 9 [facility] VIEWS INC INC IADNA 04661 Juliette GUSMAN, Juliette STREPTOCO 8 NASEEM Pinzon CCUS PSC GROUP A QUANTIFIC ATION SUSCEPTIB 04745 YANI LOMELI LTY STDY 8 [facility] ANTIMICRB INC INC IAL MICRO/AGA R DILUTJ CUL BACT 91906 YANI LOMELI XCPT 8 [facility] URINE INC INC BLOOD/STO OL AEROBIC ISOL Encounters Encounter Start End Date Code Location Performer Type Date OFFICE 40275 [facility] 7 PHYSICIAN T [facility]ISIT S GROUP 15 MINUTES [facility] YANI - 7 7 [facility] T OFFICE 36764 [facility] 7 PHYSICIAN T [facility]ISIT S GROUP 15 MINUTES HOSPITAL YANI - 7 7 [facility] OFFICE 42634 [facility] 7 7 PHYSICIAN T VISIT S GROUP 15 MINUTES OFFICE 90745 [facility] OUTPATIEN 7 7 PHYSICIAN T VISIT S GROUP 15 MINUTES HOSPITAL YANI - 7 7 [facility] T OFFICE 94110 [facility] 7 7 PHYSICIAN T VISIT S GROUP 25 MINUTES [facility]ICAL [facility] [address] [facility] ANNEL OFFICE 69780 [facility] 6 [place] T NEW 45 GASTROENT MINUTES [facility] - 6 6 [facility] YANI - 6 6 [facility] OUTPATIEN INC T EMERGENCY 94619 YANI 6 6 [facility] DEPARTMEN INC T VISIT LIMITED/M [facility] Y[facility] - 6 6 [facility] INPATIENT INC OFFICE 28142 [facility] MARTINS OUTPATIEN 6 6 PHYSICIAN FRANCISCOJ T VISIT S GROUP 15 MINUTES OFFICE 93561 [facility] MARTINS OUTPATIEN 5 5 PHYSICIAN FRANCISCO J T VISIT S GROUP 15 MINUTES OFFICE 46406 [facility] MARTINS OUTPATIEN 5 5 PHYSICIAN FRANCISCO J T VISIT S GROUP 15 MINUTES HOSPITAL YANI - 5 5 [facility] OUTPATIEN INC T OFFICE 64694 [facility] MARTINS OUTPATIEN 5 5 PHYSICIAN FRANCISCO J T VISIT S GROUP 15 MINUTES OFFICE 37295 [facility] MARTINS OUTPATIEN 5 5 PHYSICIAN FRANCISCO J T VISIT S GROUP 15 MINUTES OFFICE 62157 [facility] MARTINS OUTPATIEN 5 5 PHYSICIAN FRANCISCO J T VISIT S GROUP 15 MINUTES OFFICE 62965 [facility] MARTINS OUTPATIEN 5 5 PHYSICIAN FRANCISCO J T VISIT S GROUP 15 MINUTES OFFICE 16695 [facility] MARTINS OUTPATIEN 5 5 PHYSICIAN FRANCISCO J T VISIT S GROUP 15 MINUTES HOSPITAL YANI - 5 5 [facility] OUTPATIEN INC T EMERGENCY 39919 [facility] SOYONG 5 5 U CARLEEN U CARLEEN DEPARTMEN T VISIT HIGH/URGE NT SEVERITY HOSPITAL YANI - 4 4 [facility] INPATIENT INC OFFICE 90209 ELIEZER MARTINS OUTPATIEN 4 4 [facility] J FRANCISCO J T VISIT 15 MINUTES OFFICE 62584 ELIEZER MARTINS OUTPATIEN 4 4 [facility]ANC[facility] J FRANCISCO J T VISIT 15 MINUTES HOSPITAL YANI - 4 4 [facility] OUTPATIEN INC T OFFICE 44210 M[facility] MARTINS OUTPATIEN 4 4 FRANC[facility]CO J FRANCISCO J T VISIT 5 MINUTES OFFICE 24798 [facility] MARTINS OUTPATIEN 4 4 FRANC[facility]CO J FRANCISCO J T VISIT 15 MINUTES OFFICE 06830 M[facility]INS MARTINS OUTPATIEN 4 4 FRANCISCO J FRANCISCO J T VISIT 15 MINUTES OFFICE 81453 MARTINS MARTINS OUTPATIEN 4 4 FRANC[facility] J FRANCISCO J T VISIT 15 MINUTES OFFICE 96111 MARTINS MARTINS OUTPATIEN 4 4 FRANC[facility]CO J FRANCISCO J T VISIT 15 MINUTES OFFICE 79816 MARTINS MARTINS OUTPATIEN 4 4 [facility]ANC[facility]CO J FRANCISCO J T VISIT 15 MINUTES EMERGENCY 95583 EVELYN RIVAS 4 4 III HUNG III H[address] [facility] T VISIT HIGH/URGE NT SEVERITY [facility] ST[facility] - 4 4 [facility] [address] [facility] 4 SNEHA T VISIT 15 PHYSICIAN MINUTES [facility] YANI - 3 3 [facility] [address]30[address] [facility] 3 3 [facility] T VISIT MODERATE SEVERITY [facility] - 3 3 [facility] PERIOD[facility] [address] [facility] ADAME PREVENTIV 3 3 SNEHA E MED EST PATIENT PHYSICIAN 18-39 YRS [facility] - 3 3 [facility] 92492 [facility] [address] [facility] T VISIT PHYSICIAN HIGH/URGE S NT SEVERITY OFFICE 27722 [facility] 3 3 [facility] T VISIT CLINIC OF 15 [place] MINUTES OFFICE 53937 [facility] M[facility]PAT[facility] 3 3 [facility] T VISIT CLINIC OF 15 [place] MINUTES EMERGENCY 42752 [facility] 3 3 EMERGENCY DEPARTMEN SERVICES T VISIT MODERATE SEVERITY [facility]OSPITAL YANI - 2 2 [facility] OUTPATIEN INC T EMERGENCY 02061 [place] RIVAS 2 2 EMERGENCY III [facility] DEPARTMEN SERVICES T VISIT HIGH/URGE NT SEVERITY [facility]OSPITAL Y[facility] - 2 2 [facility] INPATIENT INC OFFICE 05170 [facility] 2 2 [facility] T VISIT CLINIC OF 15 [place] MINUTES OFFICE 66663 [facility] M[facility] OUTPATIEN 2 2 [facility] T VISIT CLINIC OF 15 [place] MINUTES OFFICE 99558 [facility] M[facility] OUTPATIEN 2 2 [facility] T VISIT CLINIC OF 15 [place] MINUTES OFFICE 04253 [facility] M[facility] OUTPATIEN 2 2 [facility] T VISIT CLINIC OF 15 [place] MINUTES OFFICE 16965 [facility] M[facility] OUTPATIEN 2 2 [facility] T VISIT CLINIC OF 15 [place] MINUTES HOSPITAL YANI - 2 2 [facility] OUTPATIEN INC T OFFICE 13874 [facility] OUTPATIEN 2 2 [facility] J T VISIT 5 CLINIC OF MINUTES [place] OFFICE 79876 [facility] M[facility] OUTPATIEN 2 2 [facility] J T VISIT CLINIC OF 15 [place] MINUTES OFFICE 08143 [facility] M[facility] OUTPATIEN 2 2 [facility] T VISIT CLINIC OF 15 [place] MINUTES HOSPITAL YANI - 2 2 [facility] OUTPATIEN INC T OFFICE 99848 [facility] OUTPATIEN 2 2 HEALTH T VISIT CLINIC OF 15 [place] MINUTES HOSPITAL YANI - 2 2 [facility] OUTPATIEN INC T EMERGENCY 95428 [place] TUCKER DEPT 2 2 EMERGENCY [facility] VISIT SERVICES HIGH SEVERITY& THREAT FUNCJ EMERGENCY 63504 YANI 2 2 [facility] DEPARTMEN INC T VISIT HIGH/URGE NT SEVERITY OFFICE 55027 [facility] OUTPATIEN 2 2 HEALTH T VISIT CLINIC OF 15 [place] MINUTES OFFICE 39195 YANI YANI OUTPATIEN 2 2 [facility] HEALTH T VISIT CENTER CENTER 15 MINUTES HOSPITAL YANI - 1 1 [facility] INPATIENT INC OFFICE 56247 [facility] MARTINS OUTPATIEN 1 1 [facility] J FRANCISCO J T VISIT 15 MINUTES OFFICE 72831 MARTINS MARTINS OUTPATIEN 1 1 [facility] J FRANCISCO J T VISIT 15 MINUTES OFFICE 21818 [facility] MARTINS OUTPATIEN 1 1 [facility] J FRANCISCO J T VISIT 15 MINUTES OFFICE 20462 [facility] M[facility] OUTPATIEN 1 1 [facility] T VISIT CLINIC OF 15 [place] MINUTES OFFICE 14221 [facility] M[facility] OUTPATIEN 1 1 [facility] J T VISIT CLINIC OF 15 [place] MINUTES OFFICE 32190 [facility] M[facility] OUTPATIEN 1 1 [facility] J T VISIT CLINIC OF 15 [place] MINUTES [facility]OSPITAL YANI - 1 1 [facility] INC T OFFICE 99639 [facility] M[facility] OUTPATIEN 1 1 [facility] J T VISIT 5 CLINIC OF MINUTES [place] OFFICE 16029 [facility] M[facility] OUTPATIEN 1 1 [facility] T VISIT CLINIC OF 15 [place] MINUTES [facility]OSPITAL YANI - 1 1 [facility] OUTPATIEN INC T OFFICE 20730 [facility] OUTPATIEN 1 1 [facility] T VISIT CLINIC OF 15 [place] MINUTES OFFICE 03927 [facility] M[facility] OUTPATIEN 1 1 [facility] T VISIT CLINIC OF 15 [place] MINUTES HOSPITAL YANI - 1 1 [facility] OUTPATIEN INC T EMERGENCY 77893 YANI 1 1 [facility] DEPARTMEN INC T VISIT LOW/MODER SEVERITY EMERGENCY 32834 [place] JONATAN 1 1 EMERGENCY [facility] DEPARTMEN SERVICES T VISIT HIGH/URGE NT SEVERITY OFFICE 11759 YANI LOMELI OUTPATIEN 1 1 [facility] T NEW 30 CENTER CENTER MINUTES EMERGENCY 20944 MICHAUD 0 0 [facility] DEPARTMEN MED CTR T VISIT HIGH/URGE NT SEVERITY OFFICE 88020 FAMILY AGOMAA, OUTPATIEN 0 0 MEDICAL CAREN O T VISIT SPECIALIT 15 Y CLINIC MINUTES OFFICE 05414 FAMILY AGOMAA, OUTPATIEN 0 0 [facility] O T VISIT SPECIALIT 15 Y CLINIC MINUTES OFFICE 02951 FAMILY [place], OUTPATIEN 0 0 MEDICAL ALICE G T VISIT SPECIALIT 15 Y CLINIC MINUTES OFFICE 08887 FAMILY AGOM[place], OUTPATIEN 0 0 MEDICAL CAREN O T VISIT SPECIALIT 15 Y CLINIC MINUTES EMERGENCY 19352 TAMIKO MONACO, 0 0 [facility] T VISIT LOW/MODER SEVERITY OFFICE 09221 FAMILY [place], OUTPATIEN 9 9 MEDICAL ALICE G T VISIT SPECIALIT 15 Y CLINIC MINUTES OFFICE [id number] FAMILY [place], OUTPATIEN 9 9 MEDICAL ALICE G T NEW 20 SPECIALIT MINUTES Y CLINIC EMERGENCY 41129 TAMIKO APRIL, 9 9 [facility] MODERATE SEVERITY [facility] [place] - [facility] 9 [facility] T [place]Y 41769 [place] 9 9 [facility] DEPARTMEN T VISIT HIGH/URGE NT SEVERITY EMERGENCY 56779 YANI 9 9 [facility] T VISIT MODERATE SEVERITY HOSPITAL YANI - 9 9 [facility] T OFFICE 70357 Juliette [facility] 8 NASEEM Pinzon T VISIT PSC 15 MINUTES EMERGENCY 21466 RIZWANA KLEIN 8 8 [facility] T VISIT ON MODERATE SEVERITY HOSPITAL YANI - 8 8 [facility]EN [facility] T EMERGENCY 71716 YANI 8 8 [facility] T VISIT LOW/MODER SEVERITY
--- OUTSIDE RECORDS SUMMARY | 2017-05-24 09:58 | External Medical Summary Rpt ---
Author Author , JEREMIAH DANIELS Address Unknown Phone [email or web address] Care Team Providers Care Cable Installer Name Role Phone ABORDO, ALICE G, Unavailable [...] [facility] Unavailable Unavailable [facility] [place], [facility] JOVANA, Unavailable Unavailable [facility] Unavailable [place], [facility] [place] [facility] Un[place] Un[place] [facility] [place] JONATAN JOON, JONATAN Unavailable Unavailable JOON UMBERTO JOON, UMBERTO JOON Unavailable Unavailable GREISER HUNG, GREISER Unavailable Unavailable HUNG ROSS CHEN, Unavailable Unavailable ROSS CHEN PADMINI, NEREYDA Unavailable Unavailable PADMINI [facility] Unavailable Unavailable [facility], [facility] Unavailable Unavailable [facility], [facility] Unavailable Unavailable [facility], [facility] JESSICA SHERON, Unavailable Unavailable JESSICA SHERON [facility], Unavailable Unavailable [facility] YURIY CARO Unavailable Unavailable SUELLEN CHRIS MONACO, Unavailable Unavailable CHRIS MONACO [facility], Unavailable Unavailable [facility] Unavailable Unavailable IMAGING [facility], [facility] MARIA IV HUNG, MARIA Unavailable Unavailable IV HUNG MARIA IV HUNG, MARIA Unavailable Unavailable IV [facility] [place] REMY STACY, REMY Unavailable Unavailable STACY TONJA SHE, TONJA SHE Unavailable Unavailable TONJA SHE, TONJA SHE Unavailable Unavailable MARILYN MAJOR, Unavailable Unavailable MARILYN MAJOR [facility] Unavailable Unavailable SERVICES, [facility] SUMI CESAR, Unavailable Unavailable SUMI [...] [facility] Unavailable Unavailable OF [facility], [facility] Unavailable Unavailable AMBULANCE, [facility] [...] SOTINGEANU CARLEEN, Unavailable Unavailable SOTINGEANU CARLEEN [facility], Unavailable Unavailable [facility] Unavailable Unavailable [facility] , [facility] Unavailable Unavailable [facility], [facility] S[facility] Unavailable Unavailable PHYSICIANS, [facility] ANNEL, Unavailable Unavailable [facility] JASWANT KWOK, MICHAUD Unavailable Unavailable RISSA HWANG, DAKOTA Unavailable Unavailable [facility] Unavailable Unavailable [facility], [facility] Unavailable Unavailable [facility], [facility] UTTER ADAME, UTTER ADAME Unavailable Unavailable [facility] Unavailable [facility]available [facility], [facility] Unavailable Unavailable [facility] # Unavailable Unavailable [id number], [facility] # [id number] WEHRMAN III HUNG, Unavailable Unavailable WEHRMAN III HUNG WEHRMAN III HUNG, Unavailable Unavailable WEHRMAN III HUNG ANDREI SEA, WELLS SEA Unavailable Unavailable [facility] Unavailable Unavailable OF [place], [facility] Juliette RUFF, NASEEM, Unavailable Unavailable A C Purpose Continuity of Care Document - 06-10-2008 through 2016 Problems Code Diagnosis DOS Provider Status Z3480 ENC 03-21-2017 [facility] SUPERVISION PHYSICIANS OTH NORMAL GROUP PREG UNS TRIMESTER Z3492 ENC 02-19-2017 [place] [facility] NORMAL IMAGING ASS UNS 2 TRIMESTER Z36 ENCOUNTER 02-19-2017 [facility] SCREENING OF MOTHER Z3A20 20 WEEKS 02-19-2017 [place] GESTATION MEDICAL OF IMAGING ASS Z113 ENCOUNTER 12-21-2016 [facility] SCREEN [facility] INFECTIONS SEXL MODE TRANSMISSN Z3481 ENC 12-21-2016 [facility] SU[facility]VISION LLC OTH NORMAL 1 TRIMESTER O30198 UTERINE 11-29-2016 [facility] SIZE-DATE [facility] DISCREPANCY INC FIRST TRIMESTER Z3491 ENC 11-29-2016 [place] SUPER[facility]ION MEDICAL NORMAL IMAGING ASS UNS 1 TRIMESTER Z3A08 8 WEEKS 11-29-2016 [place] GESTATION MEDICAL OF IMAGING ASS Z3201 ENCOUNTER 11-23-2016 [facility] FOR PHYSICIANS GROUP TEST RESULT POSITIVE N3289 OTHER 07-31-2016 ST. SPECIFIED [facility] DISORDERS ANNEL OF BLADDER R1013 EPIGASTRIC 07-31-2016 ST. 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 L309 DERMATITIS 12-04-2015 [facility] UNSPECIFIED [facility] INC O4393 UNSPECIFIED 10-21-2015 [facility] NARESH & DISORDER DUBILIER THIRD TRIMESTER O720 THIRD-STAGE 10-21-2015 [facility] HEMORRHAGE [facility] INC O722 DELAYED AND 10-21-2015 [facility] SECONDARY PHYSICIANS GROUP HEMORRHAGE O730 RETAINED 10-21-2015 [facility] PLACENTA PHYSICIANS WITHOUT GROUP HEMORRHAGE O80 ENCOUNTER 10-21-2015 [facility] FOR PHYSICIANS FULL-TERM GROUP UNCOMPLICAT ED DELIVERY R0602 SHORTNESS 10-21-2015 [place] OF [facility]ATH [facility] Z370 SINGLE LIVE 10-21-2015 [facility] PH[facility]ANS [facility] Z3A00 WEEKS OF 10-21-2015 [facility] ANESTH OF OF THE BLUE NOT SPECIFIED Z3A39 39 WEEKS 10-21-2015 [facility] GESTATION [facility] OF INC Z9889 OTHER 10-21-2015 [place] SPECIFIED MEDICAL POSTPROCEDU IMAGING ASS [facility] [id number] MAT CARE 09-27-2015 [facility] KNOWN/SUSP PHYSICIANS PLACNTL GROUP INSUFF 3RD TRI FET 1 V221 SUPERVISION 06-24-2015 [facility] OF OTHER PHYSICIANS NORMAL GROUP V2881 ENCOUNTER 06-15-2015 [place] FOR MEDICAL ANATOMIC IMAGING ASS SURVEY 53658 OTHER 05-25-2015 [facility] SPECIFED PHYSICIANS COMPLICATIO GROUP N ANTEPARTUM V745 SCREENING 05-11-2015 [facility] EXAMINATION LLC FOR VENEREAL DISEASE 09893 UNSPEC 03-04-2015 [place] HEMORRHAGE MEDICAL EARLY IMAGING ASS ANTEPARTUM 86164 UNSPECIFIED 03-04-2015 SOT[facility]EANU ANTEPARTUM CARLEEN HEMORRHAGE ANTEPARTUM 3670 HYPERMETROP 12-31-2014 SCIFRES ANG IA 3671 MYOPIA 12-25-2014 [facility] ANG 650 NORMAL 09-28-2014 [facility] DELIVERY PHYSICIANS GROUP 92886 OTH&UNS CRD 09-28-2014 [facility] ENTANGL [facility] W/O COMPRS INC COMP L&D DELIV 01985 RETAINED 09-28-2014 [facility] PLACENTA PHYSICIANS WITHOUT GROUP HEMORR PP COND/COMP 50637 RETN 09-28-2014 [facility] PORTIONS [facility] PLCNTA/MEMB INC W/O HEMORR DEL W/COMPL V270 OUTCOME OF 09-28-2014 [facility] DELIVERY [facility] SINGLE INC LIVEBORN 07783 ABNORMAL 07-17-2014 ELIEZER FRANCISCO J MATERNAL GLUCOSE TOLERANCE ANTEPARTUM V283 ENCOUNTER 05-27-2014 ELIEZER FRANCISCO J ROUTINE SCREEN MALFORMATIO N ULTRASONIC 6238 OTHER 02-10-2014 WEHRMAN III SPECIFIED HUNG NONINFLAMMA TORY DISORDER VAGINA V222 02-10-2014 [facility], MEDICAL INCIDENTAL IMAGING ASS 436 ACUTE BUT 11-24-2013 [facility] ILL-DEFINED HOME MEDICAL CEREBROVASC EQUIPME ULAR DISEASE 3480 CEREBRAL 11-22-2013 [facility] PHY 60125 UNSPECIFIED 11-22-2013 TONJA SHE CEREBRAL ARTERY OCCLUSION W/INFARCT 90691 LEUKOCYTOSI 11-21-2013 MARIA IV S HUNG UNSPECIFIED 73799 UNSPEC 11-21-2013 [facility] AMBULANCE DEFICIT DUE CEREBRVASC DISEASE 53159 OTHER 11-21-2013 RADIOLOGY MALAISE AND ASSOCIATES FATIGUE OF [facility] 7850 UNSPECIFIED 11-21-2013 [facility] AMB[facility] TACHYCARDIA 47754 DYSPHAGIA 11-21-2013 MARIA IV UNSPECIFIED HUNG 7930 NONSPECIFIC 11-21-2013 [facility] ABN FNDNG RAD & OTH EXM SKULL & HEAD V7189 OBSERVATION 11-21-2013 [place] OTHER OF SPECIFIED [facility] SUSPECTED PHY CONDITIONS 7242 LUMBAGO 11-20-2013 RAD[facility]Y [facility] 12954 ESOPHAGEAL 11-11-2013 ST [facility]UX [facility] PHYSICIANS 7245 UNSPECIFIED 11-11-2013 ST BACK[place] PHYSICIANS 28806 ABDOMINAL 11-11-2013 ST PAIN, [facility] UNSPECIFIED PHYSICIANS SITE 632 MISSED 08-29-2013 [facility] [place] 98221 UNSPECIFIED 08-17-2013 ST. VIRAL [facility] INFECTION ANNEL IN CCE & UNS SITE 43393 OT CURRENT 08-17-2013 ST. MAT CONDS [facility] CLASSIFIABL ANNEL E ELSW ANTPRTM 41573 TOB USE D/O 08-17-2013 ST. COMP PG [facility] /PP ANNEL ANTEPARTM COND/COMP 98849 OTHER 06-24-2013 ST CHRONIC [facility] PAIN PHYSICIANS 45194 DIARRHEA 06-24-2013 ST [facility] PHYSICIANS V700 ROUTINE 06-24-2013 GENERAL [facility] MEDICAL PHYSICIANS EXAM@HEALTH CARE FACL 47157 NAUSEA WITH 01-23-2013 ST VOMITING [facility] PHYSICIANS 90388 ABDOMINAL 01-23-2013 ST PAINS[facility] EPIGASTRIC PHYSICIANS 6264 IRREGULAR 12-26-2012 [facility] MENSTRUAL [facility] CYCLE CLINIC OF [place] V2549 SURVEILLANC 12-26-2012 [facility] E OTH PREV HEALTH PRSC CLINIC OF CONTRACEPT [place] METHOD 6262 EXCESSIVE 12-19-2012 [facility] OR FREQUENT HEALTH CLINIC OF MENSTRUATIO [place] N 462 ACUTE 11-06-2012 [facility] V242 ROUTINE 10-02-2012 [facility] FOLLOW-UP 95461 OT 08-29-2012 [facility] PLACENTAL HEALTH CONDS CLINIC OF AFFECT [place] MANAGEMENT MOTH DELIV 74414 POOR 08-28-2012 [facility] GROWTH MGMT HEALTH MOTH CLINIC OF ANTPRTM [place] COND/COMP 34793 ABN MAT 07-01-2012 [facility] GLUCOSE [facility] TOLERANCE INC COMPL PG CB/PP UNS EOC 0794 HUMAN 06-19-2012 PATHOLOGY & PAPILLOMA CYTOLOGY VIRUS IN LAB CCE & UNS SITE 6160 CERVICITIS 06-19-2012 PATHOLOGY & AND CYTOLOGY ENDOCERVICI LAB TIS 80862 PAP SMER 06-19-2012 [facility] CERV HEALTH W/ATYPICAL CLINIC OF SQUAMOUS [place] CELLS UNDET 18863 OTH 06-19-2012 [facility] ABNORMAL HEALTH PAPANICOLAO CLINIC OF U SMEAR [place] CERVIX&CERV HPV 87168 DEHYDRATION 04-03-2012 [facility] 21816 MILD 04-03-2012 [facility] HYPEREMESIS EMERGENCY GRAVIDARUM SERVICES UNSPEC EPIS CARE 88029 MILD 04-03-2012 [facility] HYPEREMESIS [facility] GRAVIDARUM INC ANTEPARTUM V7242 01-15-2012 [facility] FELIPE EXAMINATION HEALTH OR TEST CENTER POSITIVE RESULT 71976 CERV HIGH 11-14-2011 PATHOLOGY & RISK HUMAN CYTOLOGY PAPILLOMAVI LAB MELISSA DNA TEST POS 79652 FIRST-DEGRE 10-05-2011 ELIEZER FRANCISCO J E PERINEAL LACERATION WITH DELIVERY 2859 UNSPECIFIED 10-04-2011 [facility] ANEMIA [facility] INC 28875 MATERNAL 10-04-2011 [facility] W/DELIVERY INC W/CURRENT PPC 02898 DECR 10-04-2011 ELIEZER MARX MOVMNTS MGMT MOTH ANTPRTM COND/COMP 93670 OTHER 10-04-2011 [facility] IMMEDIATE [facility] INC HEMORRHAGE W/DELIVERY V220 SUPERVISION 09-20-2011 ELIEZER FRANCISCO J OF NORMAL FIRST 5990 URINARY 03-27-2011 [facility] TRACT [facility] INFECTION INC SITE NOT SPECIFIED 59963 INFECTIONS 03-27-2011 [facility] EM[facility]ENCY GENITOURINA SERVICES RY TRACT ANTEPARTUM 1121 CANDIDIASIS 02-28-2011 PATHOLOGY & OF [facility] CYTOLOGY AND VAGINA LAB 2662 OTHER 02-16-2011 [facility] FELIPE B-COMPLEX HEALTH DEFICIENCIE CENTER S 7802 SYNCOPE AND 08-08-2010 ST COLLAPSE [facility] 92246 VOMITING 08-08-2010 ST ALONE [facility] 4619 ACUTE 03-11-2010 [facility] SINUSITIS, MEDICAL UNSPECIFIED SPECIALITY CLINIC 4700 ALLERGIC 03-11-2010 FAMILY RHINITIS MEDICAL CAUSE SPECIALITY UNSPECIFIED CLINIC 50027 HORDEOLUM 01-12-2010 [facility] EXTERNUM [facility]ICAL [facility]IN[facility] 4610 ACUTE 01-12-2010 [facility] MAXILLARY MEDICAL SINUSITIS SPECIALITY CLINIC 15427 ACUTE 01-12-2010 [facility] 53724 CHEST PAIN 10-15-2009 [place] [facility]NSPECIFIED [facility] 9945 EXHAUSTION 10-15-2009 [place] DUE TO [facility] EXERTION 80170 NAUSEA 08-25-2009 [facility] 76492 CLOSED 07-18-2009 [place] FRACTURE [facility] PHALANX OR PHALANGES HAND 79874 OPEN 07-18-2009 [place] [facility] DISTAL PHALANX OR PHALANGES HAND 39255 PAIN IN 02-08-2009 [place] JOINT, MEDICAL SHOULDER [facility] 39058 PAIN IN 02-08-2009 [place] JOINT, MEDICAL FOREARM IMAGING ASS[facility]ATES 94885 OTHER 02-08-2009 [facility] TENOSYNOVIT EMERGENCY IS OF HAND SERVICES AND WRIST ASSOCIATES 6822 CELLULITIS 06-10-2008 [facility] AND ABSCESS [facility] OF TRUNK INC 6869 UNSPEC 06-10-2008 [facility] IN[facility] SKIN&SUBCUT ANEOUS TISSUE F41.1 Generalized [...] 20 20 LI 30 11 11 PH WA N 5 AR CH 50 MA AE 0 CY L MG S LL CA C PS UL E ME 65 05 05 9 30 30 WA [...] NE 08 10 10 T JE 7 ME BARRIENTOS 10 ES S CR O MG IP TI TA ON BL ET CE NT ER ME 50 05 05 0 70 7 BR 34 AG Ac ED 38 -2 -2 .0 EA 72 OM ti NI 30 8- 8- 00 TH 26 AA ve SO 04 20 20 IT LO 00 10 10 T JE NE 4 ME BARRIENTOS 5 ES S CR O MG IP /5 TI ON ML CE SO NT LN ER AM 66 05 05 0 20 10 BR 34 AG Ac OX 68 -2 -2 0. EA 72 OM ti -C 51 8- 8- 00 TH 27 AA ve LA 01 20 20 0 IT V 20 10 10 T JE 40 2 ME BARRIENTOS 0- ES S 57 CR O IP MG TI /5 ON ML CE NT BARRIENTOS ER SP GE 24 03 03 0 5. 7 BR 34 AG Ac NT 20 -3 -3 00 EA 48 OM ti AM 80 1- 1- 0 TH 60 AA ve IC 58 20 20 IT IN 06 10 10 T JE 0 ME BARRIENTOS 0. ES S 3% CR O IP EY TI E ON DR OP CE S NT ER 00 03 03 0 5. 5 BR 34 AG Ac 14 -3 -3 00 EA 48 OM ti 31 1- 1- 0 TH 61 AA ve 47 20 20 IT 70 10 10 T JE 1 ME BARRIENTOS ES S CR O IP TI ON CE NT ER 68 03 03 0 28 14 BR 34 WI Ac 82 -2 -2 .0 EA 47 LL ti 00 9- TH 97 IA ve 06 20 20 IT MS 30 10 10 T 9 ME AL ES LY CR SO IP N TI ON CE NT ER 59 03 03 0 20 10 BR 34 WI Ac 70 -2 -2 0. EA 47 LL ti 20 TH 98 IA ve 80 20 20 0 IT MS 01 10 10 T 6 ME AL ES LY CR SO IP N TI ON CE NT ER LO 45 03 03 3 30 30 BR 34 AB Ac RA 80 -0 -0 .0 EA 36 OR ti TA 20 5- 5- 00 TH 70 DO ve DI 65 20 20 IT NE 08 10 10 T JR 7 ME 10 ES ME CR LE MG IP CI TI O TA ON G BL ET CE NT ER AM 00 03 03 0 28 14 BR 34 DE Ac OX 14 -0 -0 .0 EA 36 LO ti IC 39 5- 5- 00 TH 71 NG ve IL 95 20 20 IT LI 10 10 10 T OL N 1 ME IV 87 ES ER 5 CR K [...] C CI O TA G BL ET ME 00 11 11 00 20 4 TYRELL [...] 00 10 5 TYRELL 33 AB Ac WA 00 -2 -[address] 80 OR [...] DOS Code [place] [address] [place] [facility]TERUS 7 MEDICAL AFTER 1ST IMAGING TRIMEST ASS 1/1ST [place] PREG 96549 [facility] L[facility]ELI UTERUS 7 [facility] W/DETAIL INC INC KARIN 1ST GESTATION COLLECTIO 55291 [facility] LOMELI N VENOUS 7 [facility] BLOOD INC INC VENIPUNCT URE IADNA 23928 [facility] CHLAMYDIA 7 [facility] TRACHOMAT IS AMPLIFIED PROBE TQ CYTP C/V 95946 [facility], AUTO THIN 7 [facility] LYR PREPJ SCR MNL RESCR PHYS IADNA 11916 [facility], NEISSERIA 7 [facility] GONORRHOE [place] P[place] 91154 [facility] L[facility]ELI UTERUS 7 [facility] REAL TIME INC INC W/IMAGE DCMTN TRANSVAG URINE 12072 [facility] MARTINS 7 PHYSICIAN TEST S GROUP VISUAL COLOR CMPRSN METHS DRUG TEST 05583 [facility] ELIEZER PRSMV 7 PHYSICIAN QUAL DIR S GROUP OPTICAL OBS PER DAY LOCM Q9967 [facility] [phone] 6 [facility] [place] MG/ML ANNEL ANN[place] [address] [facility] ABDOMEN & 6 [facility] [place] PELVIS ANNEL ANNEL W/CONTRAS T MATERIAL SPECIAL 90055 [facility] STAIN 6 GROUP 1 GASTROENT GASTROENT MICROORGA EROLOGY A EROLOGY A NISMS I&R SPCL STN 20952 [facility] 2 I&R 6 EXCPT GASTROENT GASTROENT MICROORG/ EROLOGY A EROLOGY A ENZYME/IM CYT EGD 20927 [facility] TRANSORAL 6 SHERON BIOPSY GASTROENT SINGLE/[place] [address] [facility] SURG 6 PATHOLOGY GASTROENT GASTROENT EROLOGY A EROLOGY A GROSS&[place] [address] AMYLASE 6 S[facility] [address] [place] [address] THYROID 6 S[facility] STIMULATI MED CTR MED CTR NG [address] [address] LIPASE 6 [facility] [address] SIVE 6 [facility] METABOLIC MED CTR MED CTR PANEL WELLNESS [facility]ACH ST [facility] [address] [facility] BLOOD [address] COUNT 6 [facility] COMPLETE MED CTR MED CTR AUTO&AUTO WELLNESS [facility] ST [facility] ST DIFRNTL WBC COLLECTIO [address] N VENOUS 6 [facility] BLOOD MED CTR MED CTR VENIPUNCT WELLNESS COACH ST [facility] ST URE OPHTH 05433 [facility] MEDICAL 6 ANG ANG XM&EVAL COMPRHNSV ESTAB PT 1/> CURETTAGE 79442 [facility] ELIEZER 6 PHYSICIAN FRANCISCO J POSTPARTU S GROUP M VAGINAL 80737 [facility] ELIE[facility]ER DELIVERY 6 PHYSICIAN FRANCISCO J ONLY S GROUP W/POSTPAR ERINN CARE ECG 59508 [facility]IL[facility] MASSEY ROUTINE 6 SUELLEN SUELLEN ECG W/LEAST 12 LDS I&R ONLY NEURAXIAL 89410 [facility] LABOR 6 ANESTH JAIDEN ANALG/ANE OF THE S PLND BLUE VAGINAL DELIVERY RADIOLOGI 81694 [place] GILL ALL C 6 MEDICAL EXAMINATI IMAGING ON CHEST ASS SINGLE VIEW FRONTAL EXTRACTIO [id number] [facility] LOMELI N POC 6 [facility] RETAINED INC INC NATURAL/A RTIF OPENING DELIVERY 14A0COU [facility] LOMELI PRODUCTS 6 [facility] OF INC [place] [address] [facility] ERMY SURG 6 NARESH & STACY PATHOLOGY DUBILIER GROSS&JOON ROSCOPIC EXAM PARTICLE 75548 [facility] LOMELI AGGLUTINA 5 [facility] TION INC INC SCREEN EACH ANTIBODY HANDLG&/O 88497 [facility] ELIEZER R CONVEY 5 PHYSICIAN FRANCISCO J OF SPEC S GROUP FOR TR OFFICE TO LAB DOPPLER 77075 [facility] ELIEZER VELOCIMET 5 PHYSICIAN FRANCISCO J RY S GROUP UMBILICAL ARTERY US PREG 41285 [facility] ELIEZER UTERUS 5 PHYSICIAN FRANCISCO J REAL TIME S GROUP F/U TRNSABDL PER FETUS 07406 [facility] ELIEZER BIOPHYSIC 5 PHYSICIAN FRANCISCO J AL S GROUP PROFILE W/O NON-STRES S TESTING US PREG 66553 [place] RIGO UTERUS 5 MEDICAL [place] AFTER 1ST [place]AGING [place] P[place] 42559 [facility] L[facility]ELI UTERUS 5 [facility] W/DETAIL INC INC KARIN 1ST [place] PREG 23532 [facility] ELIEZER UTERUS 5 PHYSICIAN FRANCISCO J REAL TIME S GROUP W/IMAGE DCMTN TRANSVAG CYTP C/V 48660 [facility], AUTO THIN 5 [facility] LYR PREPJ SCR MNL RESCR PHYS IADNA 07189 [facility], CHLAMYDIA 5 [facility] TRACHOMAT IS AMPLIFIED PROBE TQ IADNA 13649 [facility], NEISSERIA 5 [facility] GONORRHOE AE [place] P[place] 96898 [place] GILL ALL UTERUS 5 MEDICAL REAL TIME IMAGING W/IMAGE ASS DCMTN TRANSVAG FITTING 16728 SCIF[facility] SCIFRES SPECTACLE 5 ANG ANG S XCPT APHAKIA MONOFOCAL SPHERE V2100 SCIFRES SCIFRES SINGLE 5 ANG ANG VISION PLANO +/- 4.00 PER LENS FRAMES V2020 SCIFRES SCIFRES PURCHASES 5 ANG ANG SCRATCH V2760 [facility] SCIFRES RESISTANT 5 ANG ANG COATING PER LENS LENS V2784 SC[facility] SCIFRES POLYCARBO 5 ANG ANG CAMI OR EQUAL ANY INDEX PER LENS OPHTH 74536 SCIFRES SCIFRES MEDICAL 5 ANG ANG XM&EVAL COMPRE NEW PT 1/> VST NEURAXIAL 13579 [facility] LABOR 4 ANESTH JAIDEN ANALG/ANE OF THE S PLND BLUE VAGINAL DELIVERY VAGINAL 44987 [facility] ELIEZER DELIVERY 4 PHYSICIAN FRANCISCO J ONLY S GROUP W/POSTPAR ERINN CARE OTHER 7359 [facility] LOMELI MANUALLY 4 [facility] ASSISTED INC INC DELIVERY MANUAL 754 [facility] LOMELI REMOVAL 4 [facility] OF INC INC RETAINED PLACENTA CUL BACT 48605 COMBINED COMBINED XCPT 4 PHYSICIAN PHYSICIAN URINE S LA S LA BLOOD/STO OL AEROBIC ISOL GLUCOSE 85406 YANI YANI TOLERANCE 4 [facility] TEST GTT INC INC 3 SPECIMENS GLUCOSE 99278 [facility] LOMELI TOLERANCE 4 [facility] EA ADDL INC INC BEYOND 3 SPECIMENS URNLS DIP 12514 YANI YANI 4 [facility] STICK/TAB INC INC LET RGNT NON-AUTO W/O MICRSCP GLUCOSE 51572 [facility] MARTINS POST 4 FRANCISCO J FRANCISCO [place] PREG 93222 [facility] MARTINS UTERUS 4 FRANCISCO J FRANCISCO J [place] PREG 33666 [facility] MARTINS UTERUS 4 FRANCISCO J FRANCISCO J REAL TIME W/[place] [address] TAMIKO RODRIGUEZUTCHER 4 MEDICAL [place] UTERUS 14 IMAGING WK ASS TRANSABDL GESTAT ANTIBODY 62379 COMBINED COMBINED CHLAMYDIA 4 PHYSICIAN PHYSICIAN S LA S LA CUL BACT 42405 COMBINED COMBINED XCPT 4 PHYSICIAN PHYSICIAN URINE S LA S LA BLOOD/STO OL AEROBIC ISOL WALKER E0143 [facility] FOLDING 4 HOME HOME WHEELED MEDICAL MEDICAL ADJUSTABL EQUIPME EQUIPME E/FIXED HEIGHT ELECTROEN 52089 TONJA SHE TONJA SHE CEPHALOGR 4 AM W/REC AWAKE&[place] [address] [facility] HEAD/BRAI 4 Y OF SUELLEN N W/[place] [address] [facility] HEAD/BRAI 4 N W/O ASSOCIATE CONTRAST S OF NOTH MATERIAL MRI BRAIN 64282 VAGAL ACH VAGAL ACH BRAIN 4 STEM W/O CONTRAST MATERIAL RADIOLOGI 88507 [facility] 4 Y OF SUELLEN [facility]AM[facility]ATI [facility] CHEST I PHY SINGLE VIEW FRONTAL CRITICAL 98624 MARIA IV MARIA IV CARE 4 HUNG HUGN ILL/INJUR ED PATIENT INIT 30-74 MIN AMB A0427 RURAL/MET RURAL/MET SERVICE 4 RO RO ALS AMBULANCE AMBULANCE [place] [address] RADIOLOGY RADIOLOGY ANGIOGRAP 4 HY HEAD ASSOCIATE ASSOCIATE W/CONTRAS S OF [facility] S OF [facility] T/NONCONT RAST ALS A0398 RURAL/MET RURAL/MET ROUTINE 4 RO RO DISPOSABL AMBULANCE AMBULANCE E SUPPLIES GROUND A0425 RURAL/MET RURAL/MET MILEAGE 4 RO RO PER AMBULANCE AMBULANCE STATUTE MILE ECHO 07922 [facility] R[facility]T 4 Y OF AND 2D [facility] W/WOM-MOD I PHY E COMPL SPEC&[place] [address] RADIOLOGY WELLS SEA ANGIOGRAP 4 HY NECK ASSOCIATE W/CONTRAS S OF [facility] T/NONCONT RAST MRI 14241 RADIOLOGY SAIMA SPINAL 4 SUELLEN CANAL ASSOCIATE LUMBAR S OF [facility] W/O CONTRAST MATERIAL RADEX 14127 RADIOLOGY QUEZADA SPINE 4 JAM LUMBOSACR ASSOCIATE AL 2/3 S OF [facility] VIEWS URINE [address] ST UTTER ADAME 4 SNEHA TEST VISUAL PHYSICIAN COLOR S CMPRSN METHS BASIC 49391 YANI LOMELI METABOLIC 3 [facility] PANEL INC INC CALCIUM TOTAL TX MISSED 12041 [facility] SURGICAL ANESTHESI [address]676 [facility] 3 ANESTH JAIDEN INCOMPLET [place] E/[place] [address] YANI LOMELI INFUSION 3 [facility] THERAPY INC INC PROPHYLAX IS/DX EA HOUR BLOOD 93949 YANI LOMELI COUNT 3 [facility] COMPLETE INC INC AUTO&[place] [address] PATHOLOGY REMY SURG 3 & STACY PATHOLOGY CYTOLOGY LAB GROSS&JOON ROSCOPIC EXAM INJECTION J2405 YANI LOMELI 3 [facility] ONDANSETR INC INC ON HCL PER 1 MG US PREG 73467 [facility] UTERUS [facility] W/IMAGE SEDRICK DCMTN TRANSVAG CUL BACT 86170 COMBINED COMBINED XCPT 3 PHYSICIAN PHYSICIAN URINE S LA S LA BLOOD/STO OL AEROBIC ISOL ANTIBODY 72420 COMBINED COMBINED CHLAMYDIA 3 PH[place] [address] GAMMAGLOB 3 [facility] ULIN IGA [facility] IGD IGG CENTER CENTER IGM EACH HEMOGLOBI [address] ST ST N 3 [facility] GLYCOSYLA [facility] LEYLA A1C CENTER CENTER BLOOD [address] COUNT 3 [facility] COMPLETE MEDICAL MEDICAL AUTO&AUTO [place] [address] TRIIODOTH 3 [facility] YRONINE [facility] T3 FREE CENTER CENTER IMMUNOASS [address] AY 3 [facility] ANALYTE [facility] QUAL/SEMI CENTER CENTER QUAL MULTIPLE STEP COMPREHEN [address] SIVE 3 [facility] METABOLIC MEDICAL MEDICAL PANEL CENTER CENTER COLLECTIO [address] ST UTTER ADAME N VENOUS 3 [facility]UR[facility]A BLOOD VENIPUNCT PHYSICIAN URE S ANTIBODY [address] HELICOBAC 3 [facility] TER [facility] [place] [address] FREE 3 [facility] TH[facility]ROXINE [facility] [place] OF [address] THYROID 3 [facility] STIMULATI [facility] [place] [address] [facility] TRANSVA 3 [facility] [place] CYTP C/V 29273 PICKLESIM PICKLESIM AUTO THIN 2 ER JR ZARINA ER JR ZARINA LYR PREPJ SCR MNL RESCR PHYS BLOOD 52848 [facility] COUNT 2 [facility] COMPLETE INC INC AUTO&AUTO DIFRNTL WBC THERAPEUT 11655 [facility] IC 2 [facility] INJECTION INC INC IV PUSH EACH NEW DRUG URNLS DIP 76104 [facility]ELI 2 [facility] STICK/TAB INC INC LET REAGENT AUTO MICROSCOP Y URINE 11073 [facility]EL[facility] 2 [facility] TEST INC INC VISUAL COLOR CMPRSN METHS BASIC 22118 Y[facility] L[facility] METABOLIC 2 [facility] PANEL INC INC CALCIUM TOTAL NEURAXIAL 97273 [facility] LABOR 2 ANESTH JAIDEN ANALG/ANE OF THE S PLND BLUE VAGINAL DELIVERY VAGINAL 95111 [facility] DEL[facility] 2 [facility] ONLY [facility] OF W/POSTPAR [place] ERINN CARE OTHER 7359 Y[facility] LOMELI MANUALLY 2 [facility] ASSISTED INC INC DELIVERY US PREG 62592 [facility] UTERUS [facility] REAL TIME [facility]INIC OF F/U [place] TRNSABDL PER FETUS 50342 [facility] BIOPHYSIC 2 [facility] AL [facility] OF PROFILE [place] W/O NON-STRES S TESTING DOPPLER 00618 [facility] VELOCIMET 2 [facility]Y [facility] UMBILICAL [place] ARTERY DOPPLER 36711 [facility] M[facility] VELOCIMET 2 [facility]MBIL[facility] [place] ARTERY 47005 [facility] BIOPHYSIC 2 [facility] AL [facility]IC OF PROFILE [place] W/O NON-STRES S TESTING US PREG 66884 [facility] UTERUS 2 [facility] REAL TIME [facility] OF F/U [place] TRNSABDL PER FETUS CUL BACT 85044 COMBINED COMBINED XCPT 2 PHYSICIAN PHYSICIAN URINE S LA S LA BLOOD/STO OL AEROBIC ISOL US PREG 84357 [facility] UTERUS 2 [facility] REAL TIME [facility]INIC OF F/U [place] TRNSABDL PER FETUS 02543 [facility] BIOPHYSIC 2 [facility] AL [facility]INIC OF PROFILE [place] W/O NON-STRES S TESTING DOPPLER 07845 [facility] VELOCIMET 2 [facility] [place] ARTERY GLUCOSE 52527 YANI LOMELI TOLERANCE 2 [facility] TEST GTT INC INC 3 SPECIMENS GLUCOSE 68283 [facility] TOLERANCE 2 [facility] J TEST GTT CLINIC OF 3 [place] SPECIMENS DOPPLER 03279 [facility] M[facility] VELOCIMET 2 [facility] UMBILICAL [place] ARTERY 40391 [facility] BIOPHYSIC 2 [facility] AL [facility]INIC OF PROFILE [place] W/O NON-STRES S TESTING US PREG 11005 [facility] UTERUS 2 [facility] REAL TIME CLINIC OF F/U [place] TRNSABDL PER FETUS COLPOSCOP 68645 [facility] Y CERVIX 2 [facility] J ENDOCERVI [facility]IN[place] [address] PATHOLOGY UMBERTO JOON SURG 2 & PATHOLOGY CYTOLOGY LAB GROSS&JOON ROSCOPIC EXAM US PREG 29599 [facility] UTERUS 2 [facility] AFTER 1ST [place] [address] YANI LOMELI ESTRIOL 2 [facility] INC INC GONADOTRO 90634 YANI LOMELI PIN 2 [facility] CHORIONIC INC INC QUANTITAT EUNICE ALPHA-FET 08916 YANI LOMELI OPROTEIN 2 [facility] [place] [address] YANI LOMELI INFUSION 2 [facility] THERAPY/P INC INC ROPHYLAXI S /DX 1ST TO 1 HR THERAPEUT 14893 YAIN LOMELI IC 2 [facility] INJECTION INC INC IV PUSH EACH NEW DRUG URNLS DIP 87536 YANI LOMELI 2 [facility] STICK/TAB INC INC LET REAGENT AUTO MICROSCOP Y BLOOD 66634 YANI LOMELI COUNT 2 [facility] COMPLETE INC INC AUTO&AUTO DIFRNTL WBC BASIC 09936 YANI LOMELI METABOLIC 2 [facility] PANEL INC INC CALCIUM TOTAL US PREG 23831 [facility] ELIEZER UTERUS 2 [facility] J REAL TIME CLINIC OF W/IMAGE [place] DCMTN TRANSVAG CUL BACT 26668 COMBINED COMBINED XCPT 2 PHYSICIAN PHYSICIAN URINE S LA S LA BLOOD/STO OL AEROBIC ISOL ANTIBODY 23927 COMBINED COMBINED CHLAMYDIA 2 PHYSICIAN PHYSICIAN S LA S LA URINE 68772 YANI LOMELI 2 [facility] CENTER VISUAL COLOR CMPRSN METHS IADNA 45089 PATHOLOGY REMY PAPILLOMA 2 & STACY VIRUS CYTOLOGY HUMAN LAB AMPLIFIED PROBE TQ CYTP C/V 68951 PATHOLOGY REMY AUTO THIN 2 & STACY LYR CYTOLOGY PREPJ SCR LAB MNL RESCR PHYS CYTP 40319 PATHOLOGY REMY CERVICAL/ 2 & STACY VAGINAL CYTOLOGY REQ LAB INTERP PHYSICIAN NEURAXIAL 66366 [facility] NERE[facility] LABOR 1 ANESTH PADMINI ANALG/ANE OF THE S PLND BLUE VAGINAL DELIVERY VAGINAL 92993 ELIEZER MARTINS DELIVERY 1 [facility] J ONLY W/POSTPAR ERINN CARE REPAIR OF 7569 YANI LOMELI OTHER 1 [facility] CURRENT INC INC OBSTETRIC LACERATIO N US PREG 70656 [facility]INS MARTINS UTERUS 1 [facility] J REAL TIME F/U TRNSABDL PER FETUS 76556 [facility] M[facility]INS BIOPHYSIC 1 [facility] J AL PROFILE NON-STRES S TESTING DOPPLER 84325 [facility] M[facility]INS VELOCIMET 1 [facility] J RY UMBILICAL ARTERY DOPPLER 00713 [facility]INS MARTINS VELOCIMET 1 [facility] J RY UMBILICAL ARTERY 52204 [facility] BIOPHYSIC 1 [facility] J AL PROFILE NON-STRES S TESTING US PREG 97696 [facility] M[facility]INS UTERUS 1 [facility] J REAL TIME F/U TRNSABDL PER FETUS US PREG 72669 [facility] M[facility] UTERUS 1 [facility] REAL TIME CLINIC OF F/U [place] TRNSABDL PER FETUS 17355 [facility] BIOPHYSIC 1 [facility] AL CLINIC OF PROFILE [place] W/O NON-STRES S TESTING DOPPLER 84442 [facility] VELOCIMET 1 [facility] UMBILICAL [place] ARTERY CUL BACT 26803 COMBINED COMBINED XCPT 1 PHYSICIAN PHYSICIAN URINE S LA S LA BLOOD/STO OL AEROBIC ISOL DOPPLER 09973 [facility]ARTINS MARTINS VELOCIMET 1 [facility] J RY UMBILICAL ARTERY 69110 [facility] BIOPHYSIC 1 [facility] J AL PROFILE W/O NON-STRES S TESTING US PREG 40245 ELIEZER LINKE UTERUS 1 [facility] J REAL TIME F/U TRNSABDL PER FETUS GLUCOSE 97635 YANI LOMELI TOLERANCE 1 [facility] TEST GTT INC INC 3 SPECIMENS GLUCOSE 02463 [facility] M[facility] TOLERANCE 1 [facility] J TEST GTT CLINIC OF 3 [place] SPECIMENS US PREG 30275 W[facility]EN[facility] ELIEZER UTERUS 1 [facility] J AFTER 1ST CLINIC OF TRIMEST [place] [address] YANI LOMELI ESTRIOL 1 [facility] INC INC GONADOTRO 63489 YANI LOMELI PIN 1 [facility] CHORIONIC INC INC QUANTITAT EUNICE ALPHA-FET 38375 YANI LOMELI OPROTEIN 1 [facility] SERUM INC INC URNLS DIP 19203 YANI LOMELI 1 [facility] STICK/TAB INC INC LET REAGENT AUTO MICROSCOP Y CULTURE 91627 YANI LOMELI BACTERIAL 1 [facility] INC INC QUANTTATI VE COLONY COUNT URINE URINE 25817 YANI LOMELI 1 [facility] TEST INC INC VISUAL COLOR CMPRSN METHS US PREG 20622 [facility] UTERUS 1 [facility] J REAL TIME CLINIC OF W/IMAGE [place] DCMTN TRANSVAG IADNA 73664 PATHOLOGY PATHOLOGY CHLAMYDIA 1 & & CYTOLOGY CYTOLOGY TRACHOMAT LAB LAB IS AMPLIFIED PROBE TQ CYTP C/V 94546 PATHOLOGY PATHOLOGY AUTO THIN 1 & & LYR CYTOLOGY CYTOLOGY PREPJ SCR LAB LAB MNL RESCR PHYS IADNA 53473 PATHOLOGY PATHOLOGY NEISSERIA 1 & & CYTOLOGY CYTOLOGY GONORRHOE LAB LAB AE AMPLIFIED PROBE TQ URINE 76449 YANI LOMELI 1 [facility] CENTER VISUAL COLOR CMPRSN METHS RADIOLOGI 45671 [place] LONI, C EXAM 0 [facility] YFN L [facility] 2 [facility] VIEWS FRONTAL&L ATERAL IAADIADOO 95798 [facility] [place], 9 MEDICAL ALICE G INFLUENZA SPECIALIT Y CLINIC RADEX [address] [place] HAND 9 MED CTR MED CTR MINIMUM 3 VIEWS AVULSION 03047 [facility], NAIL 9 [facility] [employer] PARTIAL/C OMPLETE SIMPLE 1 URINE 45460 YANI LOMELI 9 MEM [facility] TEST INC INC VISUAL COLOR CMPRSN METHS RADEX 22417 YANI LOMELI WRIST 9 [facility] COMPLETE INC INC MINIMUM 3 VIEWS RADEX 69688 YANI LOMELI WRIST [address] [facility] VIEWS INC INC IADNA 41147 Juliette GUSMAN, Juliette STREPTOCO 8 NASEEM Pinzon CCUS PSC GROUP A QUANTIFIC ATION SUSCEPTIB 88758 YANI LOMELI LTY STDY 8 [facility] ANTIMICRB INC INC IAL MICRO/AGA R DILUTJ CUL BACT 05497 YANI LOMELI XCPT 8 [facility] URINE INC INC BLOOD/STO OL AEROBIC ISOL Encounters Encounter Start End Date Code Location Performer Type Date OFFICE 50773 [facility] 7 PHYSICIAN T [facility]ISIT S GROUP [facility] 7 [facility] OFF[facility] 15669 [facility] 7 7 PHYSICIAN T [facility]ISIT S GROUP 15 MINUTES [facility]OSPITAL YANI - 7 7 [facility] 41989 [facility] 7 7 PHYSICIAN T [facility]ISIT S GROUP 15 MINUTES OFFICE 80481 [facility] OUT[facility] 7 7 PHYSICIAN T VISIT S GROUP 15 MINUTES HOSPITAL YANI - 7 7 [facility] OFF[facility] 16970 [facility] 7 7 PHYSICIAN T VISIT S GROUP 25 MINUTES CRITICAL [facility] 6 6 [facility] OFFICE 27990 [facility] 6 6 SHERON T NEW 45 GASTROENT MINUT[facility] EROLOGY [facility] ST - 6 6 [facility] CTR T [facility] YANI - 6 6 [facility] OUTPATIEN INC T EMERGENCY 95839 YANI 6 6 [facility] DEPARTMEN INC T VISIT LIMITED/M [facility] YANI - 6 6 [facility] INPATIENT INC OFFICE 83485 [facility] MARTINS OUTPATIEN 6 6 PHYSICIAN [facility] J T VISIT S GROUP 15 MINUTES OFFICE 37142 [facility] MARTINS OUTPATIEN 5 5 PHYSICIAN [place] J T VISIT S GROUP 15 MINUTES OFFICE 09136 [facility] MARTINS OUTPATIEN 5 5 PHYSICIAN [place] J T VISIT S GROUP 15 MINUTES HOSPITAL YANI - 5 5 [facility] OUTPATIEN INC T OFFICE 61767 [facility] MARTINS OUTPATIEN 5 5 PHYSICIAN [place] J T VISIT S GROUP 15 MINUTES OFFICE 96503 [facility] MARTINS OUTPATIEN 5 5 PHYSICIAN [place] J T VISIT S GROUP 15 MINUTES OFFICE 38183 [facility] MARTINS OUTPATIEN 5 5 PHYSICIAN [place] J T VISIT S GROUP 15 MINUTES OFFICE 84940 [facility] MARTINS OUTPATIEN 5 5 PHYSICIAN [place] J T VISIT S GROUP 15 MINUTES OFFICE 45612 [facility] MARTINS OUTPATIEN 5 5 PHYSICIAN [place] J T VISIT S GROUP 15 MINUTES HOSPITAL YANI - 5 5 [facility] OUTPATIEN INC T EMERGENCY 00250 [facility] SOYONG 5 5 U CARLEEN U CARLEEN DEPARTMEN T VISIT HIGH/URGE NT SEVERITY HOSPITAL YANI - 4 4 [facility] INPATIENT INC OFFICE 51980 ELIE[facility]ER MARTINS OUTPATIEN 4 4 [facility] J T VISIT 15 MINUTES OFFICE 53191 ELIE[facility] MARTINS OUTPATIEN 4 4 [facility] J T VISIT 15 MINUTES HOSPITAL YANI - 4 4 [facility] OUTPATIEN INC T OFFICE 34187 [facility] OUTPATIEN 4 4 [facility] J T VISIT 5 MINUTES OFFICE 47923 [facility] OUTPATIEN 4 4 [facility] J T VISIT 15 MINUTES OFFICE 44306 [facility] OUTPATIEN 4 4 [facility] J T VISIT 15 MINUTES OFFICE 03896 [facility] OUTPATIEN 4 4 [facility] J T VISIT 15 MINUTES OFFICE 11549 [facility] OUTPATIEN 4 4 [facility] J T VISIT 15 MINUTES OFFICE 67352 [facility] OUTPATIEN 4 4 [facility] J T VISIT 15 MINUTES EMERGENCY 42670 EVELYN RIVAS 4 4 III HUNG III HUNG [facility] T VISIT HIGH/URGE NT SEVERITY [facility] [address] [facility] OUTPSYCHIATRIC 4 4 SNEHA T VISIT 15 PHYSICIAN MINUTES [facility] YANI - 3 3 [facility] [address] [facility] 3 3 SNEHA KIT [facility] T VISIT MODERATE SEVERITY [facility] 3 3 [facility] PERIODIC [address] [facility] PREVENTIV 3 3 SNEHA E MED EST PATIENT PHYSICIAN 18-39 YRS [facility] - 3 [facility] 28078 [facility] 3 3 S[facility] T VISIT PHYSICIAN HIGH/URGE S NT SEVERITY OFFICE 52988 [facility] 3 3 [facility] T VISIT CLINIC OF 15 [place] MINUTES OFFICE 36931 [facility] M[facility] OUTPAT[facility] 3 3 [facility] [place] T VISIT CLINIC OF 15 [place] MINUTES EMERGENCY 34168 [place] [facility] 3 3 EMERGENCY DEPARTMEN SERVICES T VISIT MODERATE SEVERITY HOSPITAL YANI - 2 2 [facility] OUTPATIEN INC T EMERGENCY 02685 [place] RIVAS 2 2 EMERGENCY III [facility] DEPART[facility] T VISIT HIGH/URGE NT SEVERITY HOSPITAL Y[facility] - 2 2 [facility] INPATIENT INC OFFICE 17496 [facility] OUTPAT[facility] 2 2 [facility] T VISIT CLINIC OF 15 [place] MINUTES OFFICE 60635 [facility] M[facility] OUTPATIEN 2 2 [facility] T VISIT CLINIC OF 15 [place] MINUTES OFFICE 13838 [facility] M[facility] OUTPATIEN 2 2 [facility] T VISIT CLINIC OF 15 [place] MINUTES OFFICE 60279 [facility] M[facility] OUTPATIEN 2 2 [facility] T VISIT CLINIC OF 15 [place] MINUTES OFFICE 87746 [facility] M[facility] OUTPATIEN 2 2 [facility] T VISIT CLINIC OF 15 [place] MINUTES [facility]OSPITAL YANI - 2 2 [facility] OUTPATIEN INC T OFFICE 15258 [facility] OUTPATIEN 2 2 [facility] T VISIT 5 CLINIC OF MINUTES [place] OFFICE 67127 [facility] M[facility] OUTPATIEN 2 2 [facility] T VISIT CLINIC OF 15 [place] MINUTES OFFICE 16712 [facility] M[facility] OUTPATIEN 2 2 [facility] T VISIT CLINIC OF 15 [place] MINUTES HOSPITAL YANI - 2 2 [facility] OUTPATIEN INC T OFFICE 68677 [facility] OUTPATIEN 2 2 HEALTH T VISIT CLINIC OF 15 [place] MINUTES HOSPITAL YANI - 2 2 [facility] OUTPATIEN INC T EMERGENCY 56193 [place] TUCKER DEPT 2 2 EMERGENCY [facility] VISIT SERVICES HIGH SEVERITY& THREAT FUNCJ EMERGENCY 69664 YANI 2 2 [facility] DEPARTMEN INC T VISIT HIGH/URGE NT SEVERITY OFFICE 42263 [facility] OUTPATIEN 2 2 HEALTH T VISIT CLINIC OF 15 [place] MINUTES OFFICE 91545 YANI YANI OUTPATIEN 2 2 [facility] V[facility] CENTER 15 MINUTES HOSPITAL YANI - 1 1 [facility] INPATIENT INC OFFICE 12172 [facility] OUTPATIEN 1 1 [facility] J T VISIT 15 MINUTES OFFICE 59562 [facility] MARTINS OUTPATIEN 1 1 [facility] J [facility] J T VISIT 15 MINUTES OFFICE 27130 [facility]INS OUTPATIEN 1 1 [facility] J T VISIT 15 MINUTES OFFICE 77140 [facility] M[facility] OUTPATIEN 1 1 [facility] T VISIT CLINIC OF 15 [place] MINUTES OFFICE 02379 [facility] M[facility] OUTPATIEN 1 1 [facility] T VISIT CLINIC OF 15 [place] MINUTES OFFICE 38602 [facility] M[facility] OUTPATIEN 1 1 [facility] T VISIT CL[facility] 15 [place] MINUTES HOSPITAL YANI - 1 1 [facility] OUTPATIEN INC T OFFICE 79021 [facility] OUTPATIEN 1 1 [facility] T VISIT 5 CLINIC OF MINUTES [place] OFFICE 85817 [facility] M[facility] OUTPATIEN 1 1 [facility] T VISIT [facility] 15 [place] MINUTES [facility]OSPITAL YANI - 1 1 [facility] OUTPATIEN INC T OFFICE 93243 [facility] OUTPATIEN 1 1 [facility] T VISIT CLINIC OF 15 [place] MINUTES OFFICE 59507 [facility] M[facility] OUTPATIEN 1 1 [facility] T VISIT [facility] 15 [place] MINUTES [facility]OSPITAL YANI - 1 1 [facility] OUTPATIEN INC T EMERGENCY 74625 YANI 1 1 [facility] DEPARTMEN INC T VISIT LOW/MODER SEVERITY EMERGENCY 15623 [place] JONATAN 1 1 EMERGENCY [facility] DEPARTMEN SERVICES T VISIT HIGH/URGE NT SEVERITY OFFICE 11402 YANI LOMELI OUTPATIEN 1 1 [facility] T NEW 30 CENTER CENTER MINUTES EMERGENCY 18596 MICHAUD 0 0 [facility] DEPARTMEN MED CTR T VISIT HIGH/URGE NT SEVERITY OFFICE 54834 FAMILY AGOMAA, OUTPATIEN 0 0 MEDICAL CAREN O T VISIT SPECIALIT 15 Y CLINIC MINUTES OFFICE 76488 [facility], OUTPATIEN 0 0 MEDICAL CAREN O T VISIT SPECIALIT 15 Y CLINIC MINUTES OFFICE 67531 [facility] [place], OUTPATIEN 0 0 MEDICAL ALICE G T VISIT SPECIALIT 15 Y CLINIC MINUTES OFFICE 61242 [facility], OUTPATIEN 0 0 MEDICAL CAREN O T VISIT SPECIALIT 15 Y CLINIC MINUTES EMERGENCY 55836 TAMIKO MONACO, 0 0 [facility] T VISIT LOW/MODER SEVERITY OFFICE 79530 [facility] [place], OUTPATIEN 9 9 MEDICAL ALICE G T VISIT SPECIALIT 15 Y CLINIC MINUTES OFFICE 31844 [facility] [place], OUTPATIEN 9 9 MEDICAL ALICE G T NEW 20 SPECIALIT MINUTES Y CLINIC EMERGENCY 67156 TAMIKO APRIL, 9 9 [facility] T VISIT MODERATE SEVERITY [facility] [place] - 9 9 MED CTR OUTPATIEN T EMERGENCY 13269 [place] 9 9 MED CTR DEPARTMEN T VISIT HIGH/URGE NT SEVERITY EMERGENCY 29502 YANI 9 9 [facility] DEPARTMEN INC T VISIT MODERATE SEVERITY HOSPITAL YANI - 9 9 [facility] OUTPATIEN INC T OFFICE 54215 [facility] NASEEM Pinzon T VISIT PSC 15 MINUTES EMERGENCY 07022 RIZWANA KLEIN 8 8 [facility] O T VISIT ON MODERATE SEVERITY HOSPITAL YANI - 8 8 [facility] T EMERGENCY 42305 YANI 8 8 [facility] T VISIT LOW/MODER SEVERITY
--- OUTSIDE RECORDS SUMMARY | 2017-05-24 10:03 | External Medical Summary Rpt ---
Author Author , JEREMIAH DANIELS Address Unknown Phone [email or web address] Care Team Providers Care Project Economist Name Role Phone ABORDO, ALICE G, Unavailable Unavailable ABORDO, ALICE G AGOMAA, CAREN O, Unavailable Unavailable AGOMAA, CAREN O BERNARDON SUELLEN, Unavailable Unavailable BERNARDON SUELLEN BESSON SUELLEN, BESSON Unavailable Unavailable SUELLEN LONI, YFN L, Unavailable Unavailable LONI, YFN L GILL, GILL Unavailable Unavailable GILL ALL, GILL ALL Unavailable Unavailable [facility] BURGER AND, BURGER Unavailable Unavailable AND CHIPPS NARESH & Unavailable Unavailable DUBILIER, CHIPPS NARESH & DUBILIER ELIEZER MARTINS Unavailable Unavailable ELIEZER FRANCISCO J, MARTINS Unavailable Unavailable FRANCISCO J ELIEZER NOLASCO Unavailable Unavailable FRANCISCO J [facility], Unavailable [facility]available [facility] Un[facility] [place]available [place], [facility]available Unavailable [facility] THE OSTRANDER RIGO JOVANA, Unavailable Unavailable RIGO JOVANA [facility] Unavailable [place]available [place], [facility] [place] [facility] Unavailable Unavailable [place], [facility] [place] JONATAN JOON, JONATAN Unavailable Unavailable JOON UMBERTO JOON, UMBERTO OJON Unavailable Unavailable GREISER HUNG, GREISER Unavailable Unavailable HUNG ROSS CHEN, Unavailable Unavailable ROSS CHEN PADMINI, NEREYDA Unavailable Unavailable PADMINI [facility] Unavailable Unavailable [place], [facility] Unavailable Unavailable [place], [facility] Unavailable Unavailable INC, [facility] JESSICA SHERON, Unavailable Unavailable JESSICA SHERON [facility], Unavailable Unavailable [facility] YAN SUELLEN, YAN Unavailable Unavailable SUELLEN CHRIS MONACO, Unavailable Unavailable CHRIS MONACO [facility], Unavailable Unavailable [facility] Unavailable Unavailable [facility], [facility] MARIA IV HUNG, MARIA Unavailable Unavailable IV HUNG [facility] [place] Un[facility] REMY STACY, REMY Unavailable Unavailable STACY TONJA SHE, TONJA SHE Unavailable Unavailable TONJA SHE, TONJA SHE Unavailable Unavailable MARILYN MAJOR, Unavailable Unavailable MARILYN MAJOR [facility] Unavailable Unavailable SERVICES, [facility] SUMI CESAR, Unavailable Unavailable SUMI [...] [facility] Unavailable Unavailable [facility], [facility] ADRIANNE SASHA, Unavailable Unavailable ADRIANNE SASHA [facility], [facility] Unavailable Unavailable [facility], [facility] SCIFRES ANG, SCIFRES Unavailable Unavailable ANG SCIFRES ANG, SCIFRES Unavailable Unavailable ANG FREDDIE RY, FRAZIER RY Unavailable Unavailable SOKAN BAB, SOKAN BAB Unavailable Unavailable SOKAN, CLARIBEL O, Unavailable Unavailable SOKAN, CLARIBEL O [facility] Unavailable Unavailable [facility], [facility] Unavailable Unavailable [facility], [facility] SOTINGEANU CARLEEN, Unavailable Unavailable SOTINGEANU CARLEEN SOTINGEANU CARLEEN, Unavailable Unavailable SOTINGEANU CARLEEN [facility], Unavailable Unavailable [facility]available Unavailable [address], [facility] Unavailable Unavailable [place], [facility] Unavailable Unavailable PHYSICIANS, [facility], Unavailable Unavailable [facility] JASWANT GRE, MICHAUD Unavailable Unavailable RISSA HWANG, DAKOTA Unavailable Unavailable JAIDEN [facility], [facility] Unavailable Unavailable DISORDER, [facility] Unavailable Unavailable [facility], [facility] UTTER ADAME, UTTER ADAME Unavailable Unavailable [facility] Unavailable [facility]available [facility], [facility] Unavailable Unavailable [facility] # Unavailable Unavailable [id number], [facility] # [id number] WEHRMAN III HUNG, Unavailable Unavailable WEHRMAN III HUNG WEHRMAN III HUNG, Unavailable Unavailable WEHRMAN III HUNG ANDREI SEA, ANDREI SEA Unavailable Unavailable [facility] Unavailable Unavailable OF [place], [facility] Juliette RUFF, NASEEM, Unavailable Unavailable A C Purpose Continuity of Care Document - 06-10-2008 through 2016 Problems Code Diagnosis DOS Provider Status Z3480 ENC 03-21-[address] [facility] SUPERVISION PHYSICIANS OTH NORMAL GROUP PREG UNS TRIMESTER Z3492 ENC 02-19-2017 [facility] NORMAL IMAGING ASS UNS 2 TRIMESTER Z36 ENCOUNTER 02-19-2017 [facility] FOR [facility] SCREENING OF MOTHER Z3A20 20 WEEKS 02-19-2017 [facility] GESTATION [facility]ICAL OF IMAGING ASS Z113 ENCOUNTER 12-21-2016 [facility] SCREEN [facility] INFECTIONS SEXL MODE TRANSMISSN Z3481 ENC 12-21-2016 [facility] SUPERVISION LLC OTH NORMAL 1 TRIMESTER L50033 UTERINE 11-29-2016 [facility] SIZE-DATE [facility] DISCREPANCY INC FIRST TRIMESTER Z3491 ENC 11-29-2016 [facility] SUPERVISION [facility]ICAL NORMAL IMAGING ASS UNS 1 TRIMESTER Z3A08 8 WEEKS 11-29-2016 [facility]ATION [facility]ICAL OF IMAGING ASS Z3201 ENCOUNTER 11-23-[address] [facility] FOR PHYSICIANS GROUP TEST RESULT POSITIVE N3289 OTHER 07-31-2016 ST. SPECIFIED [facility] DISORDERS ANNEL OF BLADDER R1013 EPIGASTRIC 07-31-2016 ST. 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 SECONDARY PHYSICIANS GROUP HEMORRHAGE O730 RETAINED 10-21-[address] [facility] PLACENTA PHYSICIANS WITHOUT GROUP HEMORRHAGE O80 ENCOUNTER 10-21-[address] [facility] FOR PHYSICIANS FULL-TERM GROUP UNCOMPLICAT ED DELIVERY R0602 SHORTNESS 10-21-2015 [facility] OF [facility] Z370 SINGLE LIVE 10-21-[address] [facility] PHYSICIANS GROUP Z3A00 WEEKS OF 10-21-2015 [facility] GESTATION ANESTH OF OF THE BLUE NOT SPECIFIED Z3A39 39 WEEKS 10-21-2015 [facility] GESTATION [facility] OF [facility] Z9889 OTHER 10-21-2015 [facility] SPECIFIED MEDICAL POSTPROCEDU IMAGING ASS [facility] [id number] MAT CARE 09-27-[address] [facility] KNOWN/SUSP PHYSICIANS PLACNTL GROUP INSUFF 3RD TRI FET 1 V221 SUPERVISION 06-24-[address] [facility] OF OTHER PHYSICIANS NORMAL GROUP V2881 ENCOUNTER 06-15-2015 [facility] FOR [facility]ICAL ANATOMIC IMAGING ASS SURVEY 41591 OTHER 05-25-[address] [facility] SPECIFED PHYSICIANS COMPLICATIO GROUP N ANTEPARTUM V745 SCREENING 05-11-2015 [facility], EXAMINATION LLC FOR VENEREAL DISEASE 52698 UNSPEC 03-04-2015 [facility] HEMORRHAGE MEDICAL EARLY IMAGING ASS ANTEPARTUM 21283 UNSPECIFIED 03-04-2015 SOTINGEANU ANTEPARTUM CARLEEN HEMORRHAGE ANTEPARTUM 3670 HYPERMETROP 12-31-2014 SCIFRES ANG IA 3671 MYOPIA 12-25-2014 SCIFRES ANG 650 NORMAL 09-28-[address] [facility] DELIVERY PHYSICIANS GROUP 35447 OTH&UNS CRD 09-28-2014 [facility] ENTANGL [facility] W/O COMPRS INC COMP L&D DELIV 68442 RETAINED 09-28-[address] [facility] PLACENTA PHYSICIANS WITHOUT GROUP HEMORR PP COND/COMP 57592 RETN 09-28-2014 [facility] PORTIONS [facility] PLCNTA/MEMB INC W/O HEMORR DEL W/COMPL V270 OUTCOME OF 09-28-2014 [facility] DELIVERY [facility] SINGLE INC LIVEBORN 95629 ABNORMAL 07-17-2014 ELIEZER FRANCISCO J MATERNAL GLUCOSE TOLERANCE ANTEPARTUM V283 ENCOUNTER 05-27-2014 ELIEZER FRANCISCO J ROUTINE SCREEN MALFORMATIO N ULTRASONIC 6238 OTHER 02-10-2014 WEHRMAN III SPECIFIED HUNG NONINFLAMMA TORY DISORDER VAGINA V222 02-10-2014 [facility], MEDICAL INCIDENTAL IMAGING ASS 436 ACUTE BUT 11-24-2013 [facility] I[facility]-DEFINED HOME MEDICAL CEREBROVASC EQUIPME ULAR DISEASE 3480 CEREBRAL 11-22-2013 [facility] PHY 14102 UNSPECIFIED 11-22-2013 TONJA KING CEREBRAL ARTERY OCCLUSION W/INFARCT 14043 LEUKOCYTOSI 11-21-2013 MARIA IV S HUNG UNSPECIFIED 71123 UNSPEC 11-21-2013 [facility]JIMENES [facility]BULANCE DEFICIT DUE CEREBRVASC DISEASE 29758 OTHER 11-21-2013 [facility] MALAISE AND ASSOC[facility]ATES FATIGUE [facility] 7850 UNSPECIFIED 11-21-2013 [facility] TACHYCARDIA 41972 DYSPHAGIA 11-21-2013 MARIA IV UNSPECIFIED HUNG 7930 NONSPECIFIC 11-21-2013 [facility] ABN FNDNG RAD & OTH EXM SKULL & HEAD V7189 OBSERVATION 11-21-2013 NET[facility] OTHER OF SPECIFIED [place] SUSPECTED PHY CONDITIONS 7242 LUMBAGO 11-20-2013 [facility] 87906 ESOPHAGEAL 11-11-2013 ST REFLUX [facility] PHYSICIANS 7245 UNSPECIFIED 11-11-2013 ST BACKACHE [facility] PHYSICIANS 27484 ABDOMINAL 11-11-2013 ST PA[facility] UNSPECIFIED PHYSICIANS SITE 632 MISSED 08-29-2013 [facility] [place] 67884 UNSPECIFIED 08-17-2013 ST. VIRAL [facility] INFECTION ANNEL IN CCE & UNS SITE 49694 OT CURRENT 08-17-2013 ST. MAT CONDS [facility]NE[facility] CLASSIFIABL ANNEL E ELSW ANTPRTM 16150 TOB USE D/O 08-17-2013 ST. COMP PG [facility] /PP ANNEL ANTEPARTM COND/COMP 87660 OTHER 06-24-2013 ST CHRONIC [facility] PAIN PHYSICIANS 70318 DIARRHEA 06-24-2013 ST [facility] PH[facility] V700 ROUTINE 06-24-2013 ST GENERAL [facility] MEDICAL PHYSICIANS EXAM@HEALTH CARE FACL 27321 NAUSEA WITH 01-23-2013 ST VOMITING [facility] PHYSICIANS 19516 ABDOMINAL 01-23-2013 [facility] EPIGASTRIC PHYSICIANS 6264 IRREGULAR 12-26-2012 [facility] MENSTRUAL HEALTH CYCLE CLINIC OF [place] V2549 SURVEILLANC 12-26-2012 [facility] E OTH PREV HEALTH PRSC CLINIC OF CONTRACEPT [place] METHOD 6262 EXCESSIVE 12-19-2012 [facility] OR FREQUENT HEALTH CLINIC OF MENSTRUATIO [place] N 462 ACUTE 11-06-2012 [facility] V242 ROUTINE 10-02-2012 [facility] FOLLOW-UP 40730 OT 08-29-2012 [facility] PLACENTAL HEALTH CONDS CLINIC OF AFFECT [place] MANAGEMENT MOTH DELIV 64961 POOR 08-28-2012 [facility] GROWTH MGMT HEALTH MOTH CLINIC OF ANTPRTM [place] COND/COMP 95306 ABN MAT 07-01-2012 [facility] GLUCOSE [facility] TOLERANCE INC COMPL PG CB/PP UNS EOC 0794 HUMAN 06-19-2012 PATHOLOGY & PAPILLOMA CYTOLOGY VIRUS IN LAB CCE & UNS SITE 6160 CERVICITIS 06-19-2012 PATHOLOGY & AND CYTOLOGY ENDOCERVICI LAB TIS 62660 PAP SMER 06-19-2012 [facility] CERV HEALTH W/ATYPICAL CLINIC OF SQUAMOUS [place] CELLS UNDET 78213 OT 06-19-2012 [facility] ABNORMAL HEALTH PAPANICOLAO CLINIC OF U SMEAR [place] CERVIX&CERV HPV 47924 DEHYDRATION 04-03-2012 [facility] 00079 MILD 04-03-2012 [facility]PER[facility]ESIS [facility] GRAVIDARUM SERVICES UNSPEC EPIS CARE 36239 MILD 04-03-2012 [facility] HYPEREMESIS [facility] GRAVIDARUM INC ANTEPARTUM V7242 01-15-2012 [facility] OH EXAMINATION HEALTH OR TEST CENTER POSITIVE RESULT 95363 CERV HIGH 11-14-2011 PATHOLOGY & RISK HUMAN CYTOLOGY PAPILLOMAVI LAB [place] [address] FIRST-DEGRE 10-05-2011 ELIEZER FRANCISCO J E PERINEAL LACERATION WITH DELIVERY 2859 UNSPECIFIED 10-04-2011 [facility] ANEMIA [facility] 84321 MATERNAL 10-04-2011 [facility] W/DELIVERY INC W/CURRENT PPC 63370 DECR 10-04-2011 [facility] FRANCISCO J MOVMNTS MGMT MOTH ANTPRTM COND/COMP 28857 OTHER 10-04-2011 [facility] IMMEDIATE [facility] INC HEMORRHAGE W/DELIVERY V220 SUPERVISION 09-20-2011 ELIEZER FRANCISCO J OF NORMAL FIRST 5990 URINARY 03-27-2011 [facility] TRACT [facility] INFECTION INC SITE NOT SPECIFIED 75364 INFECTIONS 03-27-2011 [facility] EMERGENCY GENITOURINA SERVICES RY TRACT ANTEPARTUM 1121 CANDIDIASIS 02-28-2011 PATHOLOGY & OF VULVA CYTOLOGY AND VAGINA LAB 2662 OTHER 02-16-2011 [facility] B-COMPLEX HEALTH DEFICIENCIE CENTER S 7802 SYNCOPE AND 08-08-2010 [facility] 65380 VOMITING 08-08-2010 [facility] 4619 ACUTE 03-11-2010 [facility] SINUSITIS, MEDICAL UNSPECIFIED SPECIALITY CLINIC 4779 ALLERGIC 03-11-2010 FAMILY RHINITIS MEDICAL CAUSE SPECIALITY UNSPECIFIED CLINIC 70565 HORDEOLUM 01-12-2010 [facility] EXTERNUM [facility]ICAL [facility] 4610 ACUTE 01-12-2010 [facility] MAXILLARY MEDICAL SINUSITIS SPECIALITY CLINIC 22383 ACUTE 01-12-2010 [facility] 56873 CHEST PAIN 10-15-2009 [facility]NSPECIFIED [facility] 9945 EXHAUSTION 10-15-2009 [facility] EXERTION 86356 NAUSEA 08-25-2009 [facility] 43179 CLOSED 07-18-2009 [facility] PHALANX OR PHALANGES HAND 41246 OPEN 07-18-2009 [place] [facility] DISTAL PHALANX OR PHALANGES HAND 83386 PAIN IN 02-08-2009 [facility] JOINT, MEDICAL SHOULDER [facility] 61645 PAIN IN 02-08-2009 [facility] JOINT, MEDICAL FOREARM IMAGING ASSOC[facility]ATES 07623 OTHER 02-08-2009 [facility] OF HAND SERVICES AND WRIST [facility]OC[facility] 6822 CELLULITIS 06-10-2008 [facility] AND ABSCESS [facility] OF TRUNK INC 6869 UNSPEC 06-10-2008 [facility] SKIN&SUBCUT ANEOUS TISSUE Medications Na ND Rx Da Fi Fi [...] 20 20 LI 30 11 11 PH MO N 5 AR CH 50 MA AE 0 CY L MG S LL CA C PS UL E DC 65 05 05 9 30 30 WA [...] NE 08 10 10 T JE 7 DC BARRIENTOS 10 ES S CR O MG IP TI TA ON BL ET CE NT ER DC 50 05 05 0 70 7 BR 34 AG Ac ED 38 -2 -2 .0 EA 72 OM ti NI 30 8- 8- 00 TH 26 AA ve SO 04 20 20 IT LO 00 10 10 T JE NE 4 DC BARRIENTOS 5 ES S CR O MG IP /5 TI ON ML CE SO NT LN ER AM 66 05 05 0 20 10 BR 34 AG Ac OX 68 -2 -2 0. EA 72 OM ti -C 51 8- 8- 00 TH 27 AA ve LA 01 20 20 0 IT V 20 10 10 T JE 40 2 DC BARRIENTOS 0- ES S 57 CR O IP MG TI /5 ON ML CE NT BARRIENTOS ER SP GE 24 03 03 0 5. 7 BR 34 AG Ac NT 20 -3 -3 00 EA 48 OM ti AM 80 1- 1- 0 TH 60 AA ve IC 58 20 20 IT IN 06 10 10 T JE 0 DC BARRIENTOS 0. ES S 3% CR O IP EY TI E ON DR OP CE S NT ER 00 03 03 0 5. 5 BR 34 AG Ac 14 -3 -3 00 EA 48 OM ti 31 1- 1- 0 TH 61 AA ve 47 20 20 IT 70 10 10 T JE 1 DC BARRIENTOS ES S CR O IP TI ON CE NT ER 68 03 03 0 28 14 BR 34 WI Ac 82 -2 -2 .0 EA 47 LL ti 00 9 TH 97 IA ve 06 20 20 IT MS 30 10 10 T 9 DC AL ES LY CR SO IP N TI ON CE NT ER 59 03 03 0 20 10 BR 34 WI Ac 70 -2 -2 0. EA 47 LL ti 20 TH 98 IA ve 80 20 20 0 IT MS 01 10 10 T 6 DC AL ES LY CR SO IP N TI ON CE NT ER LO 45 03 03 3 30 30 BR 34 AB Ac RA 80 -0 -0 .0 EA 36 OR ti TA 20 5- TH 70 DO ve DI 65 20 20 IT NE 08 10 10 T JR 7 DC 10 ES ME CR LE MG IP CI TI O TA ON G BL ET CE NT ER AM 00 03 03 0 28 14 BR 34 DE Ac OX 14 -0 -0 .0 EA 36 LO ti IC 39 5- TH 71 NG ve IL 95 20 20 IT LI 10 10 10 T OL N 1 DC IV 87 ES ER 5 CR K MG IP TI TA ON BL ET CE NT ER MA 51 01 02 00 59 1 EA 16 WR Ac LA 67 -3 -[address] 17 IG ti TH 25 0- - 00 SI 18 HT ve IO 27 [...] C CI O TA G BL ET DC 00 11 11 00 20 4 TYRELL [...] .0 RD 87 OR ti TI 60 ON 66 DO ve DI 25 20 20 NE [address] HUTTON 0 UG 15 ME 0 IN LE MG C CI O TA G BL ET TA 00 10 11 00 10 5 TYRELL 33 AB Ac MO 00 -2 -[address] 80 OR ti FL 40 3- 5- 00 ON 01 DO ve U 80 20 20 [address] HUTTON 5 UG MG ME IN LE CA C CI PS O UL G E LO 45 10 11 00 14 14 TYRELL 33 AB Ac RA 80 -2 -[address] 80 OR ti TA 20 3- 5- 00 ON 02 DO ve DI 65 20 20 NE [address] HUTTON 7 UG 10 ME IN LE MG C CI O TA G BL ET AC 00 10 10 00 12 3 TYRELL 33 GR Ac ET 09 -0 -[address] 72 EN ti AM 30 5- 2- 00 ON 39 TZ ve IN 15 20 20 OP [address] BINGHAM HE 0 UG RN N- ER CO IN D C #3 TA BL ET CE 00 10 10 00 30 10 TYRELL 33 GR Ac PH 09 -0 -[address] 72 EN ti AL 33 5- 2- 00 ON 38 TZ ve EX 14 20 20 IN [address] BINGHAM 1 UG RN 50 ER 0 IN MG C CA PS UL E 60 05 06 00 12 5 EA [...] DOS Code Location Performer Comment [place] PREG 07469 [facility] LOMELI UTERUS 7 [facility] W/DETAIL INC INC KARIN 1ST GESTATION US PREG 97427 [facility]TERUS 7 MEDICAL AFTER 1ST IMAGING TRIMEST ASS GESTATION COLLECTIO 93666 [facility] LOMELI N VENOUS 7 [facility] BLOOD INC INC VENIPUNCT URE IADNA 77144 [facility] NEISSERIA 7 [facility] GONORRHOE AE AMPLIFIED PROBE TQ IADNA 70487 [facility], [facility], CHLAMYDIA 7 [facility] TRACHOMAT IS AMPLIFIED PROBE TQ CYTP C/V 19478 [facility], [facility], AUTO THIN 7 [facility] LYR PREPJ [place] 60206 [facility]TER[facility] 7 MEDICAL REAL TIME IMAGING W/IMAGE ASS DCMTN TRANSVAG URINE [address] [facility] MARTINS 7 PHYSICIAN TEST S GROUP VISUAL COLOR CMPRSN METHS DRUG TEST [address] [facility] ELIEZER PRSMV 7 PHYSICIAN QUAL DIR S GROUP OPTICAL OBS PER DAY LOCM Q9967 [facility] [phone] [facility] MG/ML ANNEL [place] [address] RADIOLOGY ADRIANNE ABDOMEN & 6 [facility] PELVIS ASSOCIATE W/CONTRAS S OF NOT T MATERIAL SPECIAL 51243 [facility] STAIN 6 GROUP 1 GASTROENT GASTROENT MICROORGA EROLOGY A EROLOGY A NISMS I&R SPCL STN 21845 [facility] 2 I&R 6 EXCPT GASTROENT GASTROENT MICROORG/ EROLOGY A EROLOGY A ENZYME/IM CYT EGD 23819 [facility] TRANSORAL 6 BIOPSY DIGESTIVE DIGESTIVE SINGLE/[place] [address] [facility] SURG 6 PATHOLOGY GASTROENT GASTROENT EROLOGY A EROLOGY A GROSS&[place] [address] THYROID 6 [facility] NG SPINNING [address] [place] [address] LIPASE 6 [facility] MED CTR SPINNING DOFFER [facility] [address] COLLECT[address] N VENOUS 6 [facility] BLOOD MED CTR MED CTR VENIPUNCT SPINNING DOFFER ST SPINNING DOFFER ST URE BLOOD [address] COUNT 6 [facility] COMPLETE MED CTR MED CTR AUTO&AUTO SPINNING DOFFER ST SPINNING DOFFER ST DIFRNTL WBC COMPREHEN [address] SIVE 6 [facility] METABOLIC MED CTR MED CTR PANEL SPINNING [place] [address] AMYLASE 6 [facility] MED CTR MED CTR SPINNING DOFFER ST SPINNING DOFFER ST OPHTH 12293 [facility] 6 ANG ANG XM&EVAL COMPRHNSV ESTAB PT 1/> VAGINAL [address] [facility] MARTINS DELIVERY 6 PHYSICIAN FRANCISCO J ONLY S GROUP W/POSTPAR ERINN CARE CURETTAGE 27077 [facility] 6 PHYSICIAN FRANCISCO J POSTPARTU S GROUP M EXTRACTIO [id number] [facility] LOMELI N POC 6 [facility] RETAINED INC INC NATURAL/A RTIF OPENING DELIVERY [id number] [facility] LOMELI PRODUCTS 6 [facility] OF INC INC CONCEPTIO N EXTERNAL NEURAXIAL 89892 [facility] 6 ANESTH JAIDEN ANALG/ANE OF THE S PLND BLUE VAGINAL DELIVERY RADIOLOGI 12698 [facility] ALL C 6 MEDICAL EXAMINATI IMAGING ON CHEST ASS SINGLE VIEW FRONTAL ECG 39126 SHIL[facility] MASSEY ROUTINE 6 SUELLEN SUELLEN ECG W/LEAST 12 LDS I&R ONLY [place] V 42195 [facility] SURG 6 NARESH & STACY PATHOLOGY DUBILIER GROSS&JOON ROSCOPIC EXAM PARTICLE 49130 [facility] LOMELI AGGLUTINA 5 [facility] TION INC INC SCREEN EACH ANTIBODY HANDLG&/O [address] [facility] ELIEZER R CONVEY 5 PHYSICIAN FRANCISCO J OF SPEC S GROUP FOR TR OFFICE TO LAB DOPPLER [address] [facility] ELIEZER VELOCIMET 5 PHYSICIAN FRANCISCO J RY S GROUP UMBILICAL ARTERY US PREG [address] [facility] ELIEZER UTERUS 5 PHYSICIAN FRANCISCO J REAL TIME S GROUP F/U TRNSABDL PER FETUS [address] [facility] ELIEZER BIOPHYSIC 5 PHYSICIAN FRANCISCO J AL S GROUP PROFILE W/O NON-STRES [place] 61432 [facility] RIGO UTERUS 5 MEDICAL JOVANA AFTER 1ST IMAGING TRIMEST ASS GESTATION US PREG 56679 [facility] LOMELI UTERUS 5 [facility] W/DETAIL INC INC KARIN 1ST [place]ST[place] PREG [address] [facility] ELIEZER UTERUS 5 PHYSICIAN FRANCISCO J REAL TIME S GROUP W/IMAGE DCMTN TRANSVAG IADNA 21931 [facility], NEISSERIA 5 [facility] GONORRHOE AE AMPLIFIED PROBE TQ IADNA 34845 [facility], CHLAMYDIA 5 [facility] TRACHOMAT IS AMPLIFIED PROBE TQ CYTP C/V 45975 [facility], AUTO THIN 5 [facility] LYR PREPJ SCR MNL [place]CR [place] PREG 53145 [facility] GILL ALL UTERUS 5 MEDICAL REAL TIME IMAGING W/IMAGE ASS DCMTN TRANSVAG SPHERE V2100 SCIFRES SCIFRES SINGLE 5 ANG ANG VISION PLANO +/- 4.00 PER LENS FITTING 20849 SCIFRES SCIFRES SPECTACLE 5 ANG ANG S XCPT APHAKIA MONOFOCAL FRAMES V2020 SCIFRES SCIFRES PURCHASES 5 ANG ANG SCRATCH V2760 SCIFRES SCIFRES RESISTANT 5 ANG ANG COATING PER LENS LENS V2784 SCIFRES SCIFRES POLYCARBO 5 ANG ANG CAMI OR EQUAL ANY INDEX PER LENS OPHTH 01027 SCIFRES SCIFRES MEDICAL 5 ANG ANG XM&EVAL COMPRE NEW PT 1/> VST NEURAXIAL 10927 [facility] 4 ANESTH JAIDEN ANALG/ANE OF THE S PLND BLUE VAGINAL DELIVERY VAGINAL [address] [facility] ELIEZER DELIVERY 4 PHYSICIAN FRANCISCO J ONLY S GROUP W/POSTPAR ERINN CARE MANUAL 754 YANI LOMELI REMOVAL 4 [facility] OF INC INC RETAINED PLACENTA OTHER 7359 YANI LOMELI MANUALLY 4 [facility] ASSISTED INC INC DELIVERY CUL BACT 63481 COMBINED COMBINED XCPT 4 PHYSICIAN PHYSICIAN URINE S LA S LA BLOOD/STO OL AEROBIC ISOL GLUCOSE 43251 YANI LOMELI TOLERANCE 4 [facility] TEST GTT INC INC 3 SPECIMENS GLUCOSE 05980 YANI LOMELI TOLERANCE 4 [facility] EA ADDL INC INC BEYOND 3 SPECIMENS URNLS DIP 11609 YANI LANGSTONON 4 [facility] STICK/TAB INC INC LET RGNT NON-AUTO W/O MICRSCP GLUCOSE 89788 ELIEZER MARTINS POST 4 FRANCISCO J FRANCISCO J GLUCOSE DOSE US PREG 08926 ELIEZER MARTINS UTERUS 4 FRANCISCO J FRANCISCO J AFTER TRIMEST GESTATION US PREG 77823 ELIEZER MARTINS UTERUS 4 FRANCISCO J FRANCISCO J REAL TIME [place] [address] TAMIKO RIGO 4 MEDICAL JOVANA UTERUS 14 IMAGING WK ASS TRANSABDL GESTAT CUL BACT 60241 COMBINED COMBINED XCPT 4 PHYSICIAN PHYSICIAN URINE S LA S LA BLOOD/STO OL AEROBIC ISOL ANTIBODY 27406 COMBINED COMBINED CHLAMYDIA 4 PHYSICIAN PHYSICIAN S LA S LA WALKER E0143 [place] F[place]ING 4 HOME HOME WHEELED MEDICAL MEDICAL ADJUSTABL EQUIPME EQUIPME E/[place] [address] [facility] HEAD/BRAI 4 Y OF SUELLEN N W/O [place] CONTRAST I PHY MATERIAL ELECTROEN 55765 TONJA SHE TONJA SHE CEPHALOGR 4 AM W/REC AWAKE&[place] [address] RADIOLOGY [place] SEA ANGIOGRAP 4 HY NECK ASSOCIATE W/CONTRAS S OF NOTH T/NONCONT RAST MRI BRAIN 16430 VAGAL ACH VAGAL ACH BRAIN 4 STEM W/O CONTRAST MATERIAL RADIOLOGI 53560 [facility] C 4 Y OF SUELLEN EXAMINATI [place] ON CHEST [place] [address] RADIOLOGY [place] SEA HEAD/BRAI 4 N W/O [place]OCI[place] [address] RADIOLOGY RADIOLOGY ANGIOGRAP 4 HY HEAD ASSOCIATE ASSOCIATE W/CONTRAS S OF NOTH S OF NOTH T/NONCONT RAST ECHO 68443 [facility] R-T 4 Y OF AND 2D [place] W/WOM-MOD I PHY E COMPL SPEC&COLR D CRITICAL 66439 [facility] 4 SNEHA STE ILL/INJUR MED CTR ED PATIENT INIT 30-74 MIN AMB [id number] RURAL/MET RURAL/MET SERVICE 4 RO RO ALS AMBULANCE AMBULANCE EMERGENCY TRANSPORT LEVEL 1 ALS A0398 RURAL/MET RURAL/MET ROUTINE 4 RO RO DISPOSABL AMBULANCE AMBULANCE E SUPPLIES GROUND [id number] RURAL/MET RURAL/MET MILEAGE 4 RO RO PER AMBULANCE AMBULANCE STATUTE MILE MRI 75102 RADIOLOGY SAIMA SPINAL 4 SUELLEN CANAL ASSOCIATE LUMBAR S OF [facility] W/O CONTRAST MATERIAL RADEX 62127 [facility] SPINE 4 SNEHA [place] LUMBOSACR ANNEL ANNEL AL 2/[address] UTTER ADAME 4 SNEHA TEST VISUAL PHYSICIAN COLOR S CMPRSN METHS BASIC 44355 YANI LOMELI METABOLIC 3 [facility] [place] T[place] [address] YANI LOMELI INFUSION 3 [facility] THERAPY INC INC PROPHYLAX IS/DX EA HOUR ANESTHESI 71290 [facility] [place] A 3 ANESTH JAIDEN INCOMPLET OF THE [place] [address] PATHOLOGY REMY SURG 3 & STACY PATHOLOGY CYTOLOGY LAB GROSS&JOON ROSCOPIC EXAM INJECTION J2405 YANI LOMELI 3 [facility] ONDANSETR INC INC ON HCL PER 1 MG BLOOD 12404 YANI LOMELI COUNT 3 [facility] COMPLETE INC INC AUTO&AUTO DIFRNTL WBC TX MISSED 35937 YANI LOMELI 3 [facility] FIRST INC INC TRIMESTER SURGICAL US PREG 82068 [facility] UTERUS 3 [facility] REAL TIME CLINIC OF W/IMAGE [place] DCMTN TRANSVAG CUL BACT 60985 COMBINED COMBINED XCPT 3 PHYSICIAN PHYSICIAN URINE S LA S LA BLOOD/STO OL AEROBIC ISOL ANTIBODY 23742 COMBINED COMBINED CHLAMYDIA 3 PHYS[place] [address] [facility] GAMMAGLOB 3 SNEHA PULIDO IGA [facility] IGD IGG CENTER CENTER IGM EACH HEMOGLOBI [address] N 3 [facility] GLYCOSYLA [facility]NOTE 3] [place] [address] TRIIODOTH 3 [facility] YRONINE [facility][NOTE 3] T3 FREE CENTER CENTER BLOOD [address] COUNT 3 [facility] COMPLETE MEDICAL CENTER [facility] AUTO&AUTO CENTER CENTER DIFRNTL WBC ANTIBODY [address] HELICOBAC 3 [facility] TER MEDICAL [place] [address] FREE 3 [facility] THYROXINE [facility] [place] [address] THYROID 3 [facility] STIMULATI [facility]NOTE 3] NG [facility] HORMONE TSH COLLECTIO [address] UTTER ADAME N VENOUS [address] [place] [address] BLOOD VENIPUNCT PHYSICIAN URE S IMMUNOASS [address] AY [address] [place] [address] [facility] QUAL/SEMI CENTER CENTER QUAL MULTIPLE STEP COMPREHEN [address] SIVE [address] [place] [address] [facility] [place] [address] [facility] TRANSVAGI 3 [facility] NAL [facility]IN[facility] OF [facility] CYTP C/V 14466 PICKLESIM PICKLESIM AUTO THIN 2 ER JR ZARINA ER JR ZARINA LYR PREPJ SCR MNL RESCR PHYS BLOOD 93780 YANI LOMELI COUNT 2 [facility] COMPLETE INC INC AUTO&AUTO DIFRNTL WBC BASIC 85957 YANI LOMELI METABOLIC 2 [facility] PANEL INC INC CALCIUM TOTAL URNLS DIP 80599 YANI LOMELI 2 [facility] STICK/TAB INC INC LET REAGENT AUTO MICROSCOP Y URINE 47127 YANI LOMELI 2 [facility] TEST INC INC VISUAL COLOR CMPRSN METHS THERAPEUT 51168 YANI LOMELI IC 2 [facility] INJECTION INC INC IV PUSH EACH NEW DRUG VAGINAL 80209 [facility] DELIVERY 2 [facility] J ONLY CLINIC OF W/POSTPAR [place] ERINN CARE OTHER 7359 YANI LOMELI MANUALLY 2 [facility] ASSISTED INC INC DELIVERY NEURAXIAL 80697 [facility] LABOR 2 ANESTH JAIDEN ANALG/ANE OF THE S PLND BLUE VAGINAL DEL[place]ERY [place] PREG 09259 [facility] UTERUS 2 [facility] REAL TIME CLINIC OF F/U [place] TRNSABDL PER FETUS DOPPLER 83417 [facility] M[facility] VELOCIMET 2 [facility] RY [facility]INIC OF UMBILICAL [place] ARTERY 86630 [facility] BIOPHYSIC 2 [facility] AL CLINIC OF PROFILE [place] W/O NON-STRES S TESTING 51682 [facility] BIOPHYSIC 2 [facility] AL [facility]INIC OF PROFILE [place] W/O NON-STRES S TESTING DOPPLER 57801 [facility] VELOCIMET 2 [facility] RY [facility]INIC OF UMBILICAL [place] ARTERY US PREG 21578 [facility] UTERUS 2 [facility] REAL TIME CLINIC OF F/U [place] TRNSABDL PER FETUS CUL BACT 36715 COMBINED COMBINED XCPT 2 PHYSICIAN PHYSICIAN URINE S LA S LA BLOOD/STO OL AEROBIC ISOL US PREG 17713 [facility] UTERUS 2 [facility] REAL TIME CLINIC OF F/U [place] TRNSABDL PER FETUS DOPPLER 98838 [facility] M[facility] VELOCIMET 2 [facility] RY [facility]IC OF UMBILICAL [place] ARTERY 14349 [facility] BIOPHYSIC 2 [facility] AL CLINIC OF PROFILE [place] W/O NON-STRES S TESTING GLUCOSE 80457 YANI LOMELI TOLERANCE 2 [facility] TEST GTT INC INC 3 SPECIMENS GLUCOSE 85834 [facility] TOLERANCE 2 [facility] J TEST GTT CLINIC OF 3 [place] SPECIMENS DOPPLER 52725 [facility] M[facility] VELOCIMET 2 [facility] J RY CLINIC OF UMBILICAL [place] ARTERY US PREG 05433 [facility] M[facility] UTERUS 2 [facility] J REAL TIME CLINIC OF F/U [place] TRNSABDL PER FETUS 42575 [facility] BIOPHYSIC 2 [facility] AL CLINIC OF PROFILE [place] W/O NON-STRES S TESTING COLPOSCOP 42701 [facility] Y CERVIX 2 [facility] J ENDOCERVI CLINIC [place] [address] PATHOLOGY UMBERTO JOON SURG 2 & PATHOLOGY CYTOLOGY LAB GROSS&JOON ROSCOPIC EXAM US PREG 64023 [facility] UTERUS 2 [facility] J AFTER 1ST CLINIC OF TRIMEST [place] / [place] [address] YANI LOMELI ESTRIOL 2 [facility] INC INC GONADOTRO 29845 YANI LOMELI PIN 2 [facility] CHORIONIC INC INC QUANTITAT EUNICE ALPHA-FET 41497 YANI LOMELI OPROTEIN 2 [place] [address] YANI LOMELI INFUSION 2 [facility] THERAPY/P INC INC ROPHYLAXI S /DX 1ST TO 1 HR THERAPEUT 90229 YANI LOMELI IC 2 [facility] INJECTION INC INC IV PUSH EACH NEW DRUG URNLS DIP 48701 YANI LOMELI 2 [facility] STICK/TAB INC INC LET REAGENT AUTO MICROSCOP Y BLOOD 84730 YANI LOMELI COUNT 2 [facility] COMPLETE INC INC AUTO&AUTO DIFRNTL WBC BASIC 36415 YANI LOMELI METABOLIC 2 [facility] PANEL INC INC CALCIUM TOTAL US PREG 37448 [facility] UTERUS 2 [facility] J REAL TIME CLINIC OF W/IMAGE [place] DCMTN TRANSVAG ANTIBODY 35448 COMBINED COMBINED CHLAMYDIA 2 PHYSICIAN PHYSICIAN S LA S LA CUL BACT 83462 COMBINED COMBINED XCPT 2 PHYSICIAN PHYSICIAN URINE S LA S LA BLOOD/STO OL AEROBIC ISOL URINE 96665 Y[facility] LOMELI 2 [facility] CENTER VISUAL COLOR CMPRSN METHS IADNA 87241 PATHOLOGY REMY PAPILLOMA 2 & STACY VIRUS CYTOLOGY HUMAN LAB AMPLIFIED PROBE TQ CYTP 86766 PATHOLOGY REMY CERVICAL/ 2 & STACY VAGINAL CYTOLOGY REQ LAB INTERP PHYSICIAN CYTP C/V 85615 PATHOLOGY REMY AUTO THIN 2 & STACY LYR CYTOLOGY PREPJ SCR LAB MNL RESCR PHYS NEURAXIAL 47496 [facility] 1 ANESTH PADMINI ANALG/ANE OF THE S PLND BLUE VAGINAL DELIVERY REPAIR OF 7569 YANI LOMELI OTHER 1 [facility] CURRENT INC INC OBSTETRIC LACERATIO N VAGINAL 91657 [facility] M[facility]INS DELIVERY 1 [facility] J [facility] J ONLY W/POSTPAR ERINN CARE 43954 [facility] BIOPHYSIC 1 [facility] J [facility] J AL PROFILE NON-STRES S TESTING US PREG 52805 [facility] MARTINS UTERUS 1 [facility] J REAL TIME F/U TRNSABDL PER FETUS DOPPLER 85193 [facility] MARTINS VELOCIMET 1 [facility] J [facility] J RY UMBILICAL ARTERY DOPPLER 53393 [facility]INS M[facility]INS VELOCIMET 1 [facility] J [facility] J RY UMBILICAL ARTERY US PREG 67811 [facility]INS M[facility]INS UTERUS 1 [facility] J [facility] J REAL TIME F/U TRNSABDL PER FETUS 51702 [facility] M[facility]INS BIOPHYSIC 1 [facility] J [facility] J AL PROFILE NON-STRES S TESTING 00630 [facility] BIOPHYSIC 1 [facility] AL CLINIC OF PROFILE [facility] W/O NON-STRES S TESTING US PREG 62133 [facility] UTERUS 1 [facility] J REAL TIME CLINIC OF F/U [place] TRNSABDL PER FETUS CUL BACT 15840 COMBINED COMBINED XCPT 1 PHYSICIAN PHYSICIAN URINE S LA S LA BLOOD/STO OL AEROBIC ISOL DOPPLER 31981 [facility] M[facility] VELOCIMET 1 [facility] RY [facility]INIC OF UMBILICAL [place] ARTERY DOPPLER 05491 [facility]INS MARTINS VELOCIMET 1 [facility] J [facility] J RY UMBILICAL ARTERY US PREG 51329 [facility]INS MARTINS UTERUS 1 [facility] J REAL TIME F/U TRNSABDL PER FETUS 81447 [facility] MARTINS BIOPHYSIC 1 [facility] J [facility] J AL PROFILE W/O NON-STRES S TESTING GLUCOSE 99608 YANI LOMELI TOLERANCE 1 [facility] TEST GTT INC INC 3 SPECIMENS GLUCOSE 05696 [facility] TOLERANCE 1 [facility] J TEST GTT CLINIC OF 3 [place] SPECIMENS US PREG 92180 [facility] M[facility] UTERUS 1 [facility] J AFTER 1ST CLINIC OF TRIMEST [place] / [place] [address] YANI LOMELI ESTRIOL 1 [facility] INC INC GONADOTRO 73851 YANI LOMELI PIN 1 [facility] CHORIONIC INC INC QUANTITAT EUNICE ALPHA-FET 72639 YANI LOMELI OPROTEIN 1 [facility] SERUM INC INC URNLS DIP 76587 YANI LOMELI 1 [facility] STICK/TAB INC INC LET REAGENT AUTO MICROSCOP Y CULTURE 52643 YANI LOMELI BACTERIAL 1 [facility] INC INC QUANTTATI VE COLONY COUNT URINE URINE 87322 YANI LOMELI 1 [facility] TEST INC INC VISUAL COLOR CMPRSN METHS US PREG 08959 [facility] UTERUS 1 [facility] J REAL TIME CLINIC OF W/IMAGE [place] DCMTN TRANSVAG CYTP C/V 12975 PATHOLOGY PATHOLOGY AUTO THIN 1 & & LYR CYTOLOGY CYTOLOGY PREPJ SCR LAB LAB MNL RESCR PHYS IADNA 83446 PATHOLOGY PATHOLOGY CHLAMYDIA 1 & & CYTOLOGY CYTOLOGY TRACHOMAT LAB LAB IS AMPLIFIED PROBE TQ IADNA 12541 PATHOLOGY PATHOLOGY NEISSERIA 1 & & CYTOLOGY CYTOLOGY GONORRHOE LAB LAB AE AMPLIFIED PROBE TQ URINE 12819 YANI LOMELI 1 [facility] CENTER VISUAL COLOR CMPRSN METHS RADIOLOGI 43840 KANSAS LONI, C EXAM 0 [facility] YFN L CHEST [facility] VIEWS FRONTAL&L ATERAL IAADIADOO 21220 [facility] [place], 9 MEDICAL ALICE G INFLUENZA SPECIALIT Y CLINIC RADEX 57489 KANSAS LONI, HAND 9 [facility] YFN L MINIMUM 3 LLC VIEWS AVULSION 40488 KANSAS GRENTZ, NAIL 9 [facility] [employer] PARTIAL/C OMPLETE SIMPLE 1 RADEX 41261 [facility] TALI, WRIST 9 MEDICAL SUMI P COMPLETE IMAGING MINIMUM 3 ASSOCIATE VIEWS S RADEX 83568 YANI LOMELI WRIST 2 9 [facility] VIEWS INC INC URINE 12815 YANI LOMELI 9 [facility] TEST INC INC VISUAL COLOR CMPRSN METHS IADNA 60372 Juliette GUSMAN, Juliette STREPTOCO 8 NASEEM Pinzon CCUS PSC GROUP A QUANTIFIC ATION SUSCEPTIB 65774 YANI LOMELI LTY STDY 8 [facility] ANTIMICRB INC INC IAL MICRO/AGA R DILUTJ CUL BACT 14732 YANI LOMELI XCPT 8 [facility] URINE INC INC BLOOD/STO OL AEROBIC ISOL Encounters Encounter Start End Date Code Location Performer Type Date OFFICE 37506 [facility] PHYSICIAN T VISIT S GROUP 15 MINUTES OFFICE 31958 [facility] 7 PHYSICIAN T VISIT S GROUP 15 MINUTES [facility] YANI - 7 7 [facility] - 7 7 [facility] T OFFICE 48070 [facility] OUTPATIEN 7 7 PHYSICIAN T VISIT S GROUP 15 MINUTES OFFICE 59456 [facility] OUTPATIEN 7 7 PHYSICIAN T VISIT S GROUP 15 MINUTES HOSPITAL YANI - 7 7 [facility] OFF[facility] 92039 [facility] 7 7 PHYSICIAN T VISIT S GROUP [address] ACCESS [address] [facility] ST - 6 6 [facility] ST OFFICE [address] [facility] 6 6 SHERON T NEW 45 GASTROENT MINUTES EROLOGY [facility] YANI - 6 6 [facility] OUTPATIEN INC T EMERGENCY 98349 YANI 6 6 [facility] INC T VISIT LIMITED/M INOR [facility] YANI - 6 6 [facility] INPATIENT INC OFFICE [address] [facility] MARTINS OUTPATIEN 6 6 PHYSICIAN [facility] J T VISIT S GROUP 15 MINUTES OFFICE [address] [facility] MARTINS OUTPATIEN 5 5 PHYSICIAN [facility] J T VISIT S GROUP 15 MINUTES OFFICE [address] [facility] MARTINS OUTPATIEN 5 5 PHYSICIAN [facility] J T VISIT S GROUP 15 MINUTES HOSPITAL YANI - 5 5 [facility] OUTPATIEN INC T OFFICE [address] [facility]ART[facility] OUTPATIEN 5 5 PHYSICIAN [facility] J T VISIT S GROUP 15 MINUTES OFFICE [address] [facility] MARTINS OUTPATIEN 5 5 PHYSICIAN [facility] J T VISIT S GROUP 15 MINUTES OFFICE [address] [facility]ART[facility] OUTPATIEN 5 5 PHYSICIAN [facility] J T VISIT S GROUP 15 MINUTES OFFICE [address] [facility]ART[facility] OUTPATIEN 5 5 PHYSICIAN [facility] J T VISIT S GROUP 15 MINUTES OFFICE [address] [facility] MARTINS OUTPATIEN 5 5 PHYSICIAN [facility] J T VISIT S GROUP 15 MINUTES HOSPITAL YANI - 5 5 [facility] OUTPATIEN INC T EMERGENCY 67359 [facility] SOT[facility] 5 5 U CARLEEN U CARLEEN DEPARTMEN T VISIT HIGH/URGE NT SEVERITY HOSPITAL YANI - 4 4 [facility] INPATIENT INC OFFICE 06591 [facility] OUTPATIEN 4 4 [facility] J T VISIT 15 MINUTES OFFICE 17264 [facility] OUTPATIEN 4 4 [facility] J T VISIT 15 MINUTES HOSPITAL YANI - 4 4 [facility] OUTPATIEN INC T OFFICE 16682 [facility] OUTPATIEN 4 4 [facility] J T VISIT 5 MINUTES OFFICE 96175 [facility] OUTPATIEN 4 4 [facility] J T VISIT 15 MINUTES OFFICE 10301 [facility] OUTPATIEN 4 4 [facility] J [facility] J T VISIT 15 MINUTES OFFICE 35972 [facility] OUTPATIEN 4 4 [facility] J [facility] J T VISIT 15 MINUTES OFFICE 82240 [facility] OUTPATIEN 4 4 [facility] J [facility] J T VISIT 15 MINUTES OFFICE 29185 [facility] OUTPATIEN 4 4 [facility] J [facility] J T VISIT 15 MINUTES EMERGENCY 70321 EVELYN RIVAS 4 4 III HUNG III HUNG [facility] T VISIT HIGH/URGE NT SEVERITY [facility] [address] [facility] 4 4 SNEHA T VISIT 15 PHYSICIAN MINUTES [facility] YANI - 3 3 [facility] 29549 [facility] 3 [facility] V[facility] MODERATE SEVERITY PERIODIC 83343 [facility] PREVENTIV 3 3 SNEHA E MED EST PATIENT PHYSICIAN 18-39 YRS [facility] - 3 3 [facility] CENTER EMERGENCY 45753 [facility] 3 3 SNEHA [facility] T VISIT PHYSICIAN HIGH/URGE S NT SEVERITY OFFICE 64810 [facility] 3 3 [facility] T VISIT CLINIC OF 15 [place] MINUTES OFFICE 28694 [facility] M[facility] 3 3 [facility] T VISIT CLINIC OF 15 [place] MINUTES EMERGENCY 72444 [place] [facility] 3 3 [facility] T VISIT MODERATE SEVERITY [facility] YANI - 2 2 [facility] T EMERGENCY 34046 [place] RIVAS 2 2 EMERGENCY III [facility] T VISIT HIGH/URGE NT SEVERITY HOSPITAL YANI - 2 2 [facility] INPATIENT INC OFFICE 57936 [facility] 2 2 [facility] T VISIT CLINIC OF 15 [place] MINUTES OFFICE 52027 [facility] OUT[facility] 2 2 [facility] T VISIT CLINIC OF 15 [place] MINUTES OFFICE 26079 [facility] OUTPATIEN 2 2 [facility] T VISIT CLINIC OF 15 [place] MINUTES OFFICE 92608 [facility] OUTPAT[facility]EN 2 2 [facility] T VISIT CLINIC OF 15 [place] MINUTES OFFICE 82141 [facility] OUTPATIEN 2 2 [facility] T VISIT CLINIC OF 15 [facility] MINUTES HOSPITAL YANI - 2 2 [facility] OUTPATIEN INC T OFFICE 51944 [facility] OUTPATIEN 2 2 [facility] T VISIT 5 CLINIC OF MINUTES [facility] OFFICE 55904 [facility] OUTPATIEN 2 2 [facility] T VISIT CLINIC OF 15 [place] MINUTES OFFICE 03573 [facility] OUTPATIEN 2 2 [facility] T VISIT CLINIC OF 15 [facility] MINUTES HOSPITAL YANI - 2 2 [facility] OUTPATIEN INC T OFFICE 98838 [facility] OUTPATI[facility] 2 2 HEALTH T VISIT CLINIC OF 15 [place] MINUTES EMERGENCY 71489 YANI 2 2 [facility] DEPARTMEN INC T VISIT HIGH/URGE NT SEVERITY EMERGENCY 90270 [place] TUCKER DEPT 2 2 EMERGENCY [facility]UNG VISIT SERVICES HIGH SEVERITY& [facility] OUTPATIEN INC T OFFICE 49867 [facility] OUTPATIEN 2 2 HEALTH T VISIT CLINIC OF 15 [place] MINUTES OFFICE 15729 YANI YANI OUTPATIEN 2 2 [facility] VISIT CENTER CENTER 15 MINUTES HOSPITAL YANI - 1 1 [facility] INPATIENT INC OFFICE 80143 [facility] OUTPATIEN 1 1 [facility] J [facility] J T VISIT 15 MINUTES OFFICE 97672 [facility] OUTPATIEN 1 1 [facility] J [facility] J T VISIT 15 MINUTES OFFICE 98408 [facility] OUTPATIEN 1 1 [facility] J [facility] J T VISIT 15 MINUTES OFFICE 40041 [facility] OUTPATIEN 1 1 [facility] T VISIT CLINIC OF 15 [place] MINUTES OFFICE 55698 [facility] OUTPATIEN 1 1 [facility] J T VISIT CLINIC OF 15 [place] MINUTES OFFICE 99839 [facility] OUTPATIEN 1 1 [facility] J T VISIT CLINIC OF 15 [facility] MINUTES HOSPITAL YANI - 1 1 [facility] OUTPATIEN INC T OFFICE 72999 [facility] OUTPATIEN 1 1 [facility] J T VISIT 5 CLINIC OF MINUTES [facility] OFFICE 12902 [facility] OUTPATIEN 1 1 [facility] T VISIT CLINIC OF 15 [place] MINUTES OFFICE 50439 [facility] OUTPATIEN 1 1 [facility] T VISIT CLINIC OF 15 [place] MINUTES HOSPITAL YANI - 1 1 [facility] OUTPATIEN INC T OFFICE 80415 [facility] OUTPATIEN 1 1 [facility] T VISIT CLINIC OF 15 [place] MINUTES EMERGENCY 85757 YANI 1 1 [facility] DEPARTMEN INC T VISIT LOW/MODER SEVERITY HOSPITAL YANI - 1 1 [facility] OUTPATIEN INC T EMERGENCY 43401 [place] CHEUNG 1 1 EMERGENCY JOON DEPARTMEN SERVICES T VISIT HIGH/URGE NT SEVERITY OFFICE 39200 YANI LOMELI OUTPATIEN 1 1 [facility] CENTER MINUTES EMERGENCY [address] ST MICHAUD 0 0 S[facility]HA [facility] T VISIT HIGH/URGE NT SEVERITY OFFICE 48002 FAMILY AGOMAA, OUTPATIEN 0 0 MEDICAL CAREN O T VISIT SPECIALIT 15 Y CLINIC MINUTES OFFICE 26402 [facility]ILY [facility], OUTPATIEN 0 0 MEDICAL CAREN O T VISIT SPECIALIT 15 Y CLINIC MINUTES OFFICE 04329 [facility] [place], OUTPATIEN 0 0 MEDICAL ALICE G T VISIT SPECIALIT 15 Y CLINIC MINUTES OFFICE 04336 FAMILY AGOMAA, OUTPATIEN 0 0 MEDICAL CAREN O T VISIT SPECIALIT 15 Y CLINIC MINUTES EMERGENCY 61054 [facility], 0 0 [facility] CHRIS [facility] T VISIT LOW/MODER SEVERITY OFFICE 55606 [facility] [place], OUTPATIEN 9 9 MEDICAL ALICE G T VISIT SPECIALIT 15 Y CLINIC MINUTES OFFICE 95344 [facility] [place], OUTPATIEN 9 9 MEDICAL ALICE G T NEW 20 SPECIALIT MINUTES Y CLINIC EMERGENCY 03573 [facility] CHEN 9 9 RIVER P ROSS [facility] T VISIT MODERATE SEVERITY EMERGENCY 73234 [place] 9 9 MED CTR DEPARTMEN T VISIT HIGH/URGE NT SEVERITY HOSPITAL [place] - 9 9 MED CTR OUTPATIEN T EMERGENCY 95592 [place] MAJOR, 9 9 [facility]ERGENCY [facility] T VISIT MODERATE ASSOCIATE SEVERITY S [facility] YANI - 9 9 [facility] OUTPATIEN INC T OFFICE 25933 Juliette BRISCOE OUTPATISERENITY 8 8 NASEEM Pinzon T VISIT PSC 15 MINUTES EMERGENCY 96346 RIZWANA KLEIN, 8 8 [facility] T VISIT ON MODERATE SEVERITY EMERGENCY 63515 YANI 8 8 [facility] INC T VISIT LOW/MODER SEVERITY HOSPITAL YANI - 8 8 [facility] T
--- OUTSIDE RECORDS SUMMARY | 2017-05-24 10:03 | External Medical Summary Rpt ---
Author Author , JEREMIAH DANIELS Address Unknown Phone [email or web address] Research Care Team Providers Care Environmental Services Supervisor Name Role Phone ABORDO, ALICE G, Unavailable Unavailable ABORDO, LAICE G AGOMAA, CAREN O, Unavailable Unavailable AGOMAA, [...] [facility] Unavailable Unavailable [facility] [place] RIGO JOVANA, Unavailable Unavailable RIGO JOVANA [facility] [place], [facility] [place] [facility] Un[place] Un[place] [facility] [place] JONATAN JOON, JONATAN Unavailable Unavailable JOON UMBERTO JOON, UMBERTO JOON Unavailable Unavailable GREISER HUNG, GREISER Unavailable Unavailable HUNG ROSS CHEN, Unavailable Unavailable ROSS CHEN PADMINI, NEREYDA Unavailable Unavailable PADMINI [facility] Unavailable Unavailable [place], [facility] Unavailable Unavailable [place], [facility] Unavailable Unavailable INC, [facility] JESSICA SHERON, Unavailable Unavailable JESSICA SHERON [facility], Unavailable Unavailable [facility] YAN SUELLEN, YAN Unavailable Unavailable SUELLEN CHRIS MONACO, Unavailable Unavailable CHRIS MONACO [facility], Unavailable Unavailable [facility] Unavailable Unavailable [facility], [facility] MARIA IV HUNG, MARIA Unavailable Unavailable IV HUNG [facility] [place] [facility] REMY STACY, REMY Unavailable Unavailable STACY TONJA SHE, TONJA SHE Unavailable Unavailable TONJA SHE, TONJA SHE Unavailable Unavailable MARILYN MAJOR, Unavailable Unavailable MARILYN MAJOR [facility] Unavailable Unavailable SERVICES, [facility] SUMI CESAR, Unavailable Unavailable SUMI [...] [facility] Unavailable Unavailable [facility], [facility] ADRIANNE SASHA, Unavailable Unavailable ADRIANNE SASHA [...] SOTINGEANU CARLEEN, Unavailable Unavailable SOTINGEANU CARLEEN [facility], Unavailable Unavailable [facility]available Unavailable [address], [facility] Unavailable Unavailable [place], [facility] Unavailable Unavailable PHYSICIANS, [facility], Unavailable Unavailable [facility] JASWANT GRE, MICHAUD Unavailable Unavailable RISSA HWANG, DAKOTA Unavailable Unavailable JAIDEN [facility] Unavailable Unavailable DIS[facility], [facility] Unavailable Unavailable [facility], [facility] UTTER ADAME, UTTER ADAME Unavailable Unavailable [facility] Unavailable Unavailable [facility], [facility] Unavailable Unavailable [facility] # Unavailable Unavailable [id number], [facility] # [id number] WEHRMAN III HUNG, Unavailable Unavailable WEHRMAN III HUNG WEHRMAN III HUNG, Unavailable Unavailable WEHRMAN III HUNG ANDREI SEA, ANDREI SEA Unavailable Unavailable [facility] Unavailable Unavailable OF [place], [facility] Juliette RUFF, NASEEM, Unavailable Unavailable A C Purpose Continuity of Care Document - 06-10-2008 through 2016 Problems Code Diagnosis DOS Provider Status Z3480 ENC 03-21-2017 [facility] SUPERVISION PHYSICIANS OTH NORMAL GROUP PREG UNS TRIMESTER Z3492 ENC 02-19-2017 [place] [facility] NORMAL IMAGING ASS UNS 2 TRIMESTER Z36 ENCOUNTER 02-19-2017 [facility] SCREENING OF MOTHER Z3A20 20 WEEKS 02-19-2017 [place] GESTATION MEDICAL OF IMAGING ASS Z113 ENCOUNTER 12-21-2016 [facility] SCREEN [facility] INFECTIONS SEXL MODE TRANSMISSN Z3481 ENC 12-21-2016 [facility] SUPERVISION LLC OTH NORMAL 1 TRIMESTER L45769 UTERINE 11-29-2016 [facility] SIZE-DATE [facility] DISCREPANCY INC FIRST TRIMESTER Z3491 ENC 11-29-2016 [place] SUPERVISION MEDICAL NORMAL IMAGING ASS UNS 1 TRIMESTER Z3A08 8 WEEKS 11-29-2016 [place] GESTATION MEDICAL OF IMAGING ASS Z3201 ENCOUNTER 11-23-2016 [facility] GROUP TEST RESULT POSITIVE N3289 OTHER 07-31-2016 ST. SPECIFIED [facility] DISORDERS ANNEL OF BLADDER R1013 EPIGASTRIC 07-31-2016 ST. 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 GROUP HEMORRHAGE O730 RETAINED 10-21-2015 [facility] PHYSICIANS WITHOUT GROUP HEMORRHAGE O80 ENCOUNTER 10-21-2015 [facility] FULL-TERM GROUP UNCOMPLICAT ED DELIVERY R0602 SHORTNESS 10-21-2015 [place] OF BREATH [facility]ICAL IM[facility]ING ASS Z370 SINGLE LIVE 10-21-2015 [facility] Z3A00 WEEKS OF 10-21-2015 COMM[facility] GESTATION ANESTH OF OF THE BLUE NOT SPECIFIED Z3A39 39 WEEKS 10-21-2015 [facility] GESTATION [facility] Z9889 OTHER 10-21-2015 [place] SPECIFIED MEDICAL POSTPROCEDU IMAGING ASS [facility] [id number] MAT CARE 09-27-2015 [facility] KNOWN/SUSP PHYSICIANS PLACNTL GROUP INSUFF 3RD TRI FET 1 V221 SUPERVISION 06-24-2015 [facility] OF OTHER PHYSICIANS NORMAL GROUP V2881 ENCOUNTER 06-15-2015 [place] FOR MEDICAL ANATOMIC IMAGING ASS SURVEY 38389 OTHER 05-25-2015 [facility] SPECIFED PHYSICIANS COMPLICATIO GROUP N ANTEPARTUM V745 SCREENING 05-11-2015 [facility], EXAMINATION LLC FOR VENEREAL DISEASE 00871 UNSPEC 03-04-2015 [place] HEMORRHAGE MEDICAL EARLY IMAGING ASS ANTEPARTUM 29182 UNSPECIFIED 03-04-2015 SOTINGEANU ANTEPARTUM CARLEEN HEMORRHAGE ANTEPARTUM 3670 HYPERMETROP 12-31-2014 SCIF[facility] ANG IA 3671 MYOPIA 12-25-2014 [facility] ANG 650 NORMAL 09-28-2014 [facility] DELIVERY PHYSICIANS GROUP 96792 OTH&UNS CRD 09-28-2014 [facility] ENTANGL [facility] W/O COMPRS INC COMP L&D DELIV 90155 RETAINED 09-28-2014 [facility] PHYSICIANS WITHOUT GROUP HEMORR PP COND/COMP 78801 RETN 09-28-2014 [facility] PORTIONS [facility] PLCNTA/MEMB INC W/O HEMORR DEL W/COMPL V270 OUTCOME OF 09-28-2014 [facility] DELIVERY [facility] SINGLE INC LIVEBORN 93758 ABNORMAL 07-17-2014 ELIEZER FRANCISCO J MATERNAL GLUCOSE TOLERANCE ANTEPARTUM V283 ENCOUNTER 05-27-2014 [facility] FRANCISCO J ROUTINE SCREEN MALFORMATIO N ULTRASONIC 6238 OTHER 02-10-2014 WEHRMAN III SPECIFIED HUNG NONINFLAMMA TORY DISORDER VAGINA V222 02-10-2014 [facility], MEDICAL INCIDENTAL IMAGING ASS 436 ACUTE BUT 11-24-2013 [place] ILL-DEFINED HOME MEDICAL CEREBROVASC EQUIPME ULAR DISEASE 3480 CEREBRAL 11-22-2013 [facility] PHY 11897 UNSPECIFIED 11-22-2013 TONJA KING CEREBRAL ARTERY OCCLUSION W/INFARCT 23210 LEUKOCYTOSI 11-21-2013 MARIA IV S HUNG UNSPECIFIED 84115 UNSPEC 11-21-2013 [facility] DEFICIT DUE CEREBRVASC DISEASE 54295 OTHER 11-21-2013 [facility] MALAISE AND ASS[facility] FATIGUE [facility] 7850 UNSPECIFIED 11-21-2013 [facility]/METRO AMBULANCE TACHYCARDIA 61680 DYSPHAGIA 11-21-2013 MARIA IV UNSPECIFIED HUNG 7930 NONSPECIFIC 11-21-2013 [facility] ABN FNDNG RAD & OTH EXM SKULL & HEAD V7189 OBSERVATION 11-21-2013 [facility] OTHER OF SPECIFIED COUGAR SUSPECTED PHY CONDITIONS 7242 LUMBAGO 11-20-2013 [facility] 66098 ESOPHAGEAL 11-11-2013 ST [facility] 7245 UNSPECIFIED 11-11-2013 ST BACKACHE [facility] PHYSICIANS 90753 ABDOMINAL 11-11-2013 ST [facility] UNSPECIFIED PHYSICIANS SITE 632 MISSED 08-29-2013 [facility] [place] 31081 UNSPECIFIED 08-17-2013 ST. VIRAL [facility] INFECTION ANNEL IN CCE & UNS SITE 82180 OT CURRENT 08-17-2013 ST. MAT CONDS SNE[facility] CLASSIFIABL ANNEL E ELSW ANTPRTM 65174 TOB USE D/O 08-17-2013 ST. COMP PG SNE[facility] /PP ANNEL ANTEPARTM COND/COMP 91782 OTHER 06-24-2013 ST CHRONIC [facility] PAIN PHYSICIANS 32670 DIARRHEA 06-24-2013 [facility] V700 ROUTINE 06-24-2013 ST GENERAL [facility] MEDICAL PH[facility]IC[facility]ANS EXAM@HEALTH CARE FACL 04024 NAUSEA WITH 01-23-2013 ST VOMITING [facility] PHYSICIANS 19798 ABDOMINAL 01-23-2013 [facility] EPIGASTRIC PHYSICIANS 6264 IRREGULAR 12-26-2012 [facility] CYCLE [facility] [place] V2549 SURVEILLANC 12-26-2012 [facility] E OTH PREV HEALTH PRSC CLINIC OF CONTRACEPT [place] METHOD 6262 EXCESSIVE 12-19-2012 [facility] OR FREQUENT [facility] CLINIC OF MENSTRUATIO [place] N 462 ACUTE 11-06-2012 [facility] [facility] V242 ROUTINE 10-02-2012 [facility] FOLLOW-UP 41581 OT 08-29-2012 [facility] PLACENTAL HEALTH CONDS CLINIC OF AFFECT [place] MANAGEMENT MOTH DELIV 16679 POOR 08-28-2012 [facility] GROWTH MGMT HEALTH MOTH CLINIC OF ANTPRTM [place] COND/COMP 49197 ABN MAT 07-01-2012 [facility] GLUCOSE [facility] TOLERANCE INC COMPL PG CB/PP UNS EOC 0794 HUMAN 06-19-2012 PATHOLOGY & [place]APILL[place] CYTOLOGY VIRUS IN LAB CCE & UNS SITE 6160 CERVICITIS 06-19-2012 PATHOLOGY & AND CYTOLOGY ENDOCERVICI LAB TIS 18928 PAP SMER 06-19-2012 [facility] CERV HEALTH W/ATYPICAL CLINIC OF SQUAMOUS [place] CELLS UNDET 66529 OT 06-19-2012 [facility] ABNORMAL HEALTH PAP[facility]ICOLAO CLINIC OF U SMEAR [place] CERVIX&CERV HPV 02040 DEHYDRATION 04-03-2012 [facility] 88912 MILD 04-03-2012 [place] HYPEREMESIS [facility]GENCY GRAVIDARUM SERVICES UNSPEC EPIS CARE 11914 MILD 04-03-2012 [facility] HYPEREMESIS [facility] GRAVIDARUM INC ANTEPARTUM V7242 01-15-2012 [facility] AL EXAMINATION HEALTH OR TEST CENTER POSITIVE RESULT 10659 CERV HIGH 11-14-2011 PATHOLOGY & RISK HUMAN CYTOLOGY PAPILLOMAVI LAB MELISSA DNA TEST POS 31107 FIRST-DEGRE 10-05-2011 ELIEZER FRANCISCO J E PERINEAL LACERATION WITH DELIVERY 2859 UNSPECIFIED 10-04-2011 [facility] ANEMIA [facility] INC 86105 MATERNAL 10-04-2011 [facility] W/DELIVERY INC W/CURRENT PPC 58163 DECR 10-04-2011 [facility] FRANCISCO J MOVMNTS MGMT MOTH ANTPRTM COND/COMP 91862 OTHER 10-04-2011 [facility] IMMEDIATE [facility] INC HEMORRHAGE W/DELIVERY V220 SUPERVISION 09-20-2011 ELIEZER FRANCISCO J OF NORMAL FIRST 5990 URINARY 03-27-2011 [facility] TRACT [facility] INFECTION INC SITE NOT SPECIFIED 05963 INFECTIONS 03-27-2011 [facility] EMERGENCY GENITOURINA SERVICES RY TRACT ANTEPARTUM 1121 CANDIDIASIS 02-28-2011 PATHOLOGY & OF [facility]VA CYTOLOGY AND VAGINA LAB 2662 OTHER 02-16-2011 [facility] AL B-COMPLEX HEALTH DEFICIENCIE CENTER S 7802 SYNCOPE AND 08-08-2010 [facility] 16240 VOMITING 08-08-2010 [facility] 4619 ACUTE 03-11-2010 [facility] SINUSITIS, MEDICAL UNSPECIFIED SPECIALITY CLINIC 4779 ALLERGIC 03-11-2010 FAMILY RHINITIS MEDICAL CAUSE SPECIALITY UNSPECIFIED CLINIC 96054 HORDEOLUM 01-12-2010 [facility] EXTERNUM [facility]ICAL [facility] 4610 ACUTE 01-12-2010 [facility] MAXILLARY MEDICAL SINUSITIS SPECIALITY CLINIC 45861 ACUTE 01-12-2010 [facility] 17509 CHEST PAIN 10-15-2009 [place] UNSPECIFIED [facility] 9945 EXHAUSTION 10-15-2009 [facility] D[facility] TO [facility] EXERTION 65841 NAUSEA 08-25-2009 [facility] 41482 CLOSED 07-18-2009 [facility] PHALANX OR PHALANGES HAND 39155 OPEN 07-18-2009 [place] [facility] DISTAL PHALANX OR PHALANGES HAND 94307 PAIN IN 02-08-2009 [place] JOINT, [facility]ICAL [facility] 36853 PAIN IN 02-08-2009 [place] JOINT, [facility]ICAL FOREARM IM[facility]ING [facility] 57936 OTHER 02-08-2009 [place] TENOSYNOVIT [facility]GENCY IS OF HAND SERVICES AND WRIST [facility] 6822 CELLULITIS 06-10-2008 [facility] AND ABSCESS [facility] OF TRUNK INC 6869 UNSPEC 06-10-2008 [facility] SKIN&SUBCUT ANEOUS TISSUE Medications Na [...] KE ve S 07 20 20 DE BRARIENTOS 01 11 11 DE LF 0 PH [...] 20 20 LI 30 11 11 PH CA N 5 AR CH 50 MA AE [...] 00 10 5 TYRELL 33 AB Ac CA 00 -2 -[address] 80 OR [...] AC 00 10 10 00 12 3 YTRELL 33 GR Ac ET 09 -0 -2 [...] DOS Code Location Performer [place] PREG 23882 [facility] LOMELI UTERUS 7 [facility] W/DETAIL INC INC KARIN 1ST GESTATION US PREG 39720 [place] GILL UTERUS 7 MEDICAL AFTER 1ST IMAGING TRIMEST ASS GESTATION COLLECTIO 39458 [facility] LOMELI N VENOUS 7 [facility] BLOOD INC INC VENIPUNCT URE IADNA 55547 [facility] NEISSERIA 7 [facility] GONORRHOE AE AMPLIFIED PROBE TQ IADNA 41898 [facility], CHLAMYDIA 7 [facility] TRACHOMAT IS AMPLIFIED PROBE TQ CYTP C/V 54658 [facility], AUTO THIN 7 [facility] LYR PREPJ SCR MNL RESCR PHYS US PREG 03171 [place] [facility]ILL UTERUS 7 MEDICAL REAL TIME IMAGING W/IMAGE ASS DCMTN TRANSVAG URINE 133[address] [facility] MARTINS 7 PHYSICIAN TEST S GROUP VISUAL COLOR CMPRSN METHS DRUG TEST [address]6773 [facility] ELIEZER PRSMV 7 PHYSICIAN QUAL DIR S GROUP OPTICAL OBS PER DAY LOCM Q9967 [phone] [facility] S[facility] MG/ML ANNEL ANNEL [place] [address] RADIOLOGY ADRIANNE ABDOMEN & 6 SASHA PELVIS ASSOCIATE W/CONTRAS S OF NOT T MATERIAL SPECIAL 52419 [facility] STAIN 6 GROUP 1 GASTROENT GASTROENT MICROORGA EROLOGY A EROLOGY A NISMS I&R SPCL STN 12338 [facility] 2 I&R 6 EXCPT GASTROENT GASTROENT MICROORG/ EROLOGY A EROLOGY A ENZYME/IM CYT EGD 72093 [facility] TRANSORAL 6 BIOPSY DIGESTIVE DIGESTIVE SINGLE/[place] [address] [facility] SURG 6 PATHOLOGY GASTROENT GASTROENT EROLOGY A EROLOGY A GROSS&[place] [address] THYROID 6 [facility] STIMULATI MED CTR MED CTR NG MOLDER VACUUM ST [place] [address] LIPASE 6 SNEHA SNEHA MED [facility] MED [facility] MOLDER VACUUM ST M[address]UUM ST COLLECTIO [address] N VENOUS 6 [facility] BLOOD MED CTR MED CTR VENIPUNCT MOLDER VACUUM ST MOLDER VACUUM ST URE BLOOD [address] COUNT 6 S[facility] S[facility] COMPLETE MED CTR MED CTR AUTO&AUTO MOLDER VACUUM ST MOLDER VACUUM ST DIFRNTL WBC COMPREHEN [address] SIVE 6 [facility] METABOLIC MED CTR MED CTR PANEL MOLDER [place] [address] AMYLASE 6 [facility] MED CTR MED CTR MOLDER VACUUM ST M[address] VACUUM ST OPHTH 73085 [facility] 6 ANG ANG XM&EVAL COMPRHNSV ESTAB PT 1/> VAGINAL 26404 [facility] MARTINS DELIVERY 6 PHYSICIAN FRANCISCO J ONLY S GROUP W/POSTPAR ERINN CARE CURETTAGE 74387 [facility] 6 PHYSICIAN FRANCISCO J POSTPARTU S GROUP M EXTRACTIO [id number] [facility] LOMELI N POC 6 [facility] RETAINED INC INC NATURAL/A RTIF OPENING DELIVERY [id number] Y[facility] LOMELI PRODUCTS 6 [facility] OF INC INC CONCEPTIO N EXTERNAL NEURAXIAL 09588 [facility] LABOR 6 ANESTH JAIDEN ANALG/ANE OF THE S PLND BLUE VAGINAL DELIVERY RADIOLOGI 47220 [place] GILL ALL C 6 MEDICAL EXAMINATI IMAGING ON CHEST ASS SINGLE VIEW FRONTAL ECG 33834 [facility] MASSEY ROUTINE 6 SUELLEN SUELLEN ECG W/LEAST 12 LDS I&[place] ONLY [place]EL V 71115 [facility] REMY SURG 6 NARESH & STACY PATHOLOGY DUBILIER GROSS&JOON ROSCOPIC EXAM PARTICLE 81563 [facility] LOMELI AGGLUTINA 5 [facility] TION INC INC SCREEN EACH ANTIBODY HANDLG&/O 47964 [facility] EL[facility]ZER R CONVEY 5 PHYSICIAN FARNCISCO J OF SPEC S GROUP FOR TR OFFICE TO LAB DOPPLER 74456 [facility] ELIEZER VELOCIMET 5 PHYSICIAN FRANCISCO J RY S GROUP UMBILICAL [place]REG [address] [facility] EL[facility]ER UTERUS 5 PHYSICIAN FRANCISCO J REAL TIME S GROUP F/U TRNSABDL PER FETUS 80581 [facility] EL[facility] BIOPHYSIC 5 PHYSICIAN FRANCISCO J AL S GROUP PROFILE W/O NON-STRES [place] PREG 84619 [place] RIGO UTERUS 5 MEDICAL [place]OVA[place] AFTER 1ST IMAGING TRIMEST [place]STATION [place] PREG 36689 [facility] L[facility]ELI UTERUS 5 [facility] W/DETAIL INC INC KARIN 1ST [place] [address] [facility] ELIEZER UTERUS 5 PHYSICIAN FRANCISCO J REAL TIME S GROUP W/IMAGE DCMTN TRANSVAG IADNA 07984 [facility], NEISSERIA 5 [facility] GONORRHOE AE AMPLIFIED PROBE TQ IADNA 40128 [facility], CHLAMYDIA 5 [facility] TRACHOMAT IS AMPLIFIED PROBE TQ CYTP C/V 16787 [facility], AUTO THIN 5 [facility] LYR PREPJ SCR [place] PREG 00486 [place] GILL ALL UTERUS 5 MEDICAL REAL TIME IMAGING W/IMAGE ASS DCMTN TRANSVAG SPHERE V2100 SCIFRES SCIFRES SINGLE 5 ANG ANG VISION PLANO +/- 4.00 PER LENS FITTING 39813 SCIFRES SCIFRES SPECTACLE 5 ANG ANG S XCPT APHAKIA MONOFOCAL FRAMES V2020 SCIFRES SCIFRES PURCHASES 5 ANG ANG SCRATCH V2760 SCIFRES SCIFRES RESISTANT 5 ANG ANG COATING PER LENS LENS V2784 SCIFRES SCIFRES POLYCARBO 5 ANG ANG CAMI OR EQUAL ANY INDEX PER LENS OPHTH 49291 SCIFRES SCIFRES MEDICAL 5 ANG ANG XM&EVAL COMPRE NEW PT 1/> VST NEURAXIAL 28731 [facility] LABOR 4 ANESTH JAIDEN ANALG/ANE OF THE S PLND BLUE VAGINAL DELIVERY VAGINAL 01836 [facility] ELIEZER DELIVERY 4 PHYSICIAN FRANCISCO J ONLY S GROUP W/POSTPAR ERINN CARE MANUAL 754 [facility] L[facility]I REMOVAL 4 [facility] OF INC INC RETAINED PLACENTA OTHER 7359 [facility] LOMELI MANUALLY 4 [facility] ASSISTED INC INC DELIVERY CUL BACT 94677 COMBINED COMBINED XCPT 4 PHYSICIAN PHYSICIAN URINE S LA S LA BLOOD/STO OL AEROBIC ISOL GLUCOSE 47534 [facility] L[facility]ELI TOLERANCE 4 [facility] TEST GTT INC INC 3 SPECIMENS GLUCOSE 44698 [facility] LOMELI TOLERANCE 4 [facility] EA ADDL INC INC BEYOND 3 SPECIMENS URNLS DIP 51668 Y[facility] L[place] 4 [facility] STICK/TAB INC INC LET RGNT NON-AUTO W/O MICRSCP GLUCOSE 52698 [facility] MARTINS POST 4 FRANCISCO J FRANCISCO J GLUCOSE DOSE US PREG 27678 [facility] MARTINS UTERUS 4 FRANCISCO J FRANCISCO J AFTER TRIMEST GESTATION US PREG 22301 EL[facility]ER MARTINS UTERUS 4 FRANCISCO J FRANCISCO J REAL TIME W/[place] [address] TAMIKO RIGO 4 MEDICAL [place] UTERUS 14 IMAGING WK ASS TRANSABDL GESTAT CUL BACT 21092 COMBINED COMBINED XCPT 4 PHYSICIAN PHYSICIAN URINE S LA S LA BLOOD/STO OL AEROBIC ISOL ANTIBODY 03492 COMBINED COMBINED CHLAMYDIA 4 PHYSICIAN PHYSICIAN S LA S LA WALKER E0143 [facility] FOLDING 4 HOME HOME WHEELED MEDICAL MEDICAL ADJUSTABL EQUIPME EQUIPME E/[place] [address] [facility] HEAD/BRAI 4 Y OF SUELLEN N W/O [place] CONTRAST I PHY MATERIAL ELECTROEN 22370 TONJA SHE TONJA SHE CEPHALOGR 4 AM W/REC AWAKE&[place] [address] RADIOLOGY [place] ANGIOGRAP 4 HY NECK ASSOCIATE W/CONTRAS S OF NOTH T/NONCONT RAST MRI BRAIN 63158 V[facility] ACH VAGAL ACH BRAIN 4 STEM W/O CONTRAST MATERIAL RADIOLOGI 25245 [facility] C 4 Y OF SUELLEN EXAMINATI [place] ON CHE[place] [address] RADIOLOGY [facility] [place] [facility] HEAD/BRAI 4 N W/O [place]OCI[place] [address] RADIOLOGY RADIOLOGY ANGIOGRAP 4 HY HEAD ASSOCIATE ASSOCIATE W/CONTRAS S OF NOTH S OF NOTH T/NONCONT RAST ECHO 38682 [facility] 4 Y OF AND 2D [place] W/WOM-MOD I PHY E COMPL SPEC&COLR D CRITICAL 52449 [facility] 4 SNEHA STE ILL/INJUR MED CTR ED PATIENT INIT 30-74 MIN AMB A0427 RURAL/MET RURAL/MET SERVICE 4 RO RO ALS AMBULANCE AMBULANCE EMERGENCY TRANSPORT LEVEL 1 ALS A0398 RURAL/MET RURAL/MET ROUTINE 4 RO RO DISPOSABL AMBULANCE AMBULANCE E SUPPLIES GROUND A0425 RURAL/MET RURAL/MET MILEAGE 4 RO RO PER AMBULANCE AMBULANCE STATUTE MILE MRI 23260 RADIOLOGY [facility] SPINAL 4 SUELLEN CANAL ASSOCIATE LUMBAR S OF [facility] W/O CONTRAST MATERIAL RADEX 25843 [facility] SPINE 4 SNEHA [place] LUMBOSACR ANNEL ANNEL AL 2/[address] [facility] ADAME 4 SNEHA TEST VISUAL PHYSICIAN COLOR S CMPRSN METHS BASIC 36123 [facility] LOMELI METABOLIC 3 [facility] [address] YANI LOMELI INFUSION 3 [facility] THERAPY INC INC PROPHYLAX IS/DX EA HOUR ANESTHESI 06587 [facility] [place] A 3 ANESTH JAIDEN INCOMPLET OF THE [place] [address] PATHOLOGY REMY SURG 3 & STACY PATHOLOGY CYTOLOGY LAB GROSS&JOON ROSCOPIC EXAM INJECTION J2405 [facility] LOMELI 3 [facility] ONDANSETR INC INC ON HCL PER 1 MG BLOOD 03876 Y[facility] LOMELI COUNT 3 [facility] COMPLETE INC INC AUTO&AUTO DIFRNTL WBC TX MISSED 56047 Y[facility] LOMELI 3 [facility]OS[facility] FIRST INC INC TRIMESTER SURGICAL [place] PREG 95508 [facility] UTER[facility] J REAL TIME CLINIC OF W/IMAGE [facility] DCMTN TRANSVAG CUL BACT 93435 COMBINED COMBINED XCPT 3 PHYSICIAN PHYSICIAN URINE S LA S LA BLOOD/STO OL AEROBIC ISOL ANTIBODY 35181 COMBINED COMBINED CHLAMYDIA 3 PH[place] [address] [facility] GAMMAGLOB 3 [facility] IGD IGG CENTER CENTER IGM EACH HEMOGLOBI [address] N 3 [facility] GLYCOSYLA [facility] [place] [address] TRIIODOTH 3 [facility] YRONINE [facility] T3 FREE CENTER CENTER BLOOD [address] COUNT 3 [facility] COMPLETE [facility] MEDICAL AUTO&AUTO CENTER CENTER DIFRNTL WBC ANTIBODY [address] HELICOBAC 3 [facility] TER MEDICAL [place] [address] FREE 3 [facility] THYROXINE [facility] [place] [address] THYROID 3 [facility] STIMULATI [facility] NG [facility] HORMONE TSH COLLECTIO [address] ST UTTER ADAME N VENOUS [address] [place] [address] BLOOD VENIPUNCT PHYSICIAN URE S IMMUNOASS [address] AY [address] [place] [address] [facility] MEDICAL QUAL/SEMI CENTER CENTER QUAL MULTIPLE STEP COMPREHEN [address] SIVE [address] [place] [address] [facility] [place] [address] [facility] TRANSVAGI [facility] NAL [facility] CYTP C/V 59061 PICKLESIM PICKLESIM AUTO THIN 2 ER JR ZARINA ER JR ZARINA LYR PREPJ SCR MNL RESCR PHYS BLOOD 44400 [facility] COUNT 2 [facility] COMPLETE INC INC AUTO&AUTO DIFRNTL WBC BASIC 60557 [facility] METABOLIC 2 [facility] PANEL INC INC CALCIUM TOTAL URNLS DIP 34188 [facility] 2 [facility] STICK/TAB INC INC LET REAGENT AUTO MICROSCOP Y URINE 84598 [facility] TEST INC INC VISUAL COLOR CMPRSN METHS THERAPEUT 33152 [facility] IC 2 [facility] INJECTION INC INC IV PUSH EACH NEW DRUG VAGINAL 55108 [facility] DELIVERY [facility] J ONLY CLINIC OF W/POSTPAR [facility] ERINN CARE OTHER 7359 YANI [facility] MANUALLY 2 [facility] ASSISTED INC INC DELIVERY NEURAXIAL 63632 [facility] LABOR 2 ANESTH JAIDEN ANALG/ANE OF THE S [place]ND [place] 59063 [facility] J REAL TIME CLINIC OF F/U [facility] TRNSABDL PER FETUS DOPPLER 33207 [facility] VELOCIMET 2 [facility] J RY CLINIC OF UMBILICAL [facility] ARTERY 37363 [facility] BIOPHYSIC [facility] J AL CLINIC OF PROFILE [facility] W/O NON-STRES S TESTING 05393 [facility] BIOPHYSIC [facility] J AL [facility]INIC OF PROFILE [facility] W/O NON-STRES S TESTING DOPPLER 20084 [facility] VELOCIMET 2 [facility] [place] 02372 [facility] UTERUS [facility] J REAL [facility] OF F/U [facility] TRNSABDL PER FETUS CUL BACT 31875 COMBINED COMBINED XCPT 2 PHYSICIAN PHYSICIAN URINE S LA S LA BLOOD/STO OL AEROBIC ISOL US PREG 07168 [facility]US 2 [facility] REAL TIME [facility]INIC OF F/U [place] TRNSABDL PER FETUS DOPPLER 27136 [facility] VELOCIMET 2 [facility] RY [facility] UMBILICAL [place] ARTERY 75795 [facility] BIOPHYSIC 2 [facility] [place] AL [facility] OF PROFILE [place] W/O NON-STRES S TESTING GLUCOSE 52512 Y[facility] LOMELI TOLERANCE 2 [facility] TEST GTT INC INC 3 SPECIMENS GLUCOSE 17815 [facility] T[facility]ANCE 2 [facility] TEST GTT CLINIC OF 3 [place] SPECIMENS DOPPLER 95510 [facility] M[facility] VELOCIMET 2 [facility] RY [facility]IC OF UMBILICAL [place] ARTERY US PREG 86453 [facility] M[facility] UTERUS 2 [facility] OF F/U [place] TRNSABDL PER FETUS 48191 [facility] BIOPHYSIC 2 [facility] AL [facility] OF PROFILE [place] W/O NON-STRES S TESTING COLPOSCOP 91296 [facility] Y CERVIX 2 [facility] ENDOCERVI CLINIC [place] [address] PATHOLOGY UMBERTO JOON SURG 2 & PATHOLOGY CYTOLOGY LAB GROSS&JOON ROSCOPIC EXAM US PREG 67421 [facility] AFTER 1ST CLINIC OF TRIMEST [place] / [place] [address] YANI LOMELI ESTRIOL 2 [facility] INC INC GONADOTRO 52165 YANI LOMELI PIN 2 [facility] CHORIONIC INC INC QUANTITAT EUNICE ALPHA-FET 61675 [facility] OPROTEIN 2 [place] [address] [facility] L[facility] INFUSION 2 [facility] THERAPY/P INC INC ROPHYLAXI S /DX 1ST TO 1 HR THERAPEUT 96599 [facility] IC 2 [facility] INJECTION INC INC IV PUSH EACH NEW DRUG URNLS DIP 51875 Y[facility] LOMELI 2 [facility] STICK/TAB INC INC LET REAGENT AUTO MICROSCOP Y BLOOD 41272 [facility] L[facility] COUNT 2 [facility] COMPLETE INC INC AUTO&AUTO DIFRNTL WBC BASIC 54920 [facility] L[facility] METABOLIC 2 [facility] PANEL INC INC CALCIUM TOTAL US PREG 43312 [facility] OF W/IMAGE [place] DCMTN TRANSVAG ANTIBODY 55835 COMBINED COMBINED CHLAMYDIA 2 PHYSICIAN PHYSICIAN S LA S LA CUL BACT 31001 COMBINED COMBINED XCPT 2 PHYSICIAN PHYSICIAN URINE S LA S LA BLOOD/STO OL AEROBIC ISOL URINE 42796 [facility]ELI 2 [facility] CENTER VISUAL COLOR CMPRSN METHS IADNA 02491 PATHOLOGY REMY PAPILLOMA 2 & STACY VIRUS CYTOLOGY HUMAN LAB AMPLIFIED PROBE TQ CYTP 91743 PATHOLOGY REMY CERVICAL/ 2 & STACY VAGINAL CYTOLOGY REQ LAB INTERP PHYSICIAN CYTP C/V 81931 PATHOLOGY REMY AUTO THIN 2 & STACY LYR CYTOLOGY PREPJ SCR LAB MNL RESCR PHYS NEURAXIAL 61523 [facility] LABOR 1 ANESTH PADMINI ANALG/ANE OF THE S PLND BLUE VAGINAL DELIVERY REPAIR OF 7569 YANI LOMELI OTHER 1 [facility] CURRENT INC INC OBSTETRIC LACERATIO N VAGINAL 61298 [facility] DELIVERY 1 [facility] J ONLY W/POSTPAR ERINN CARE 75255 [facility] BIOPHYSIC 1 [facility] J AL PROFILE NON-STRES S TESTING US PREG 85280 [facility] UTERUS 1 [facility] J REAL TIME F/U TRNSABDL PER FETUS DOPPLER 37771 [facility] MARITNS VELOCIMET 1 [facility] J RY UMBILICAL ARTERY DOPPLER 60097 [facility] VELOCIMET 1 [facility] J RY UMBILICAL ARTERY US PREG 24435 [facility] M[facility] UTERUS 1 [facility] J REAL TIME F/U TRNSABDL PER FETUS 59449 [facility] BIOPHYSIC 1 [facility] J AL PROFILE NON-STRES S TESTING 26259 [facility] BIOPHYSIC 1 [facility] AL [facility]INIC OF PROFILE [place] W/O NON-STRES S TESTING US PREG 85506 [facility] UTERUS 1 [facility] REAL TIME CLINIC OF F/U [place] TRNSABDL PER FETUS CUL BACT 81220 COMBINED COMBINED XCPT 1 PHYSICIAN PHYSICIAN URINE S LA S LA BLOOD/STO OL AEROBIC ISOL DOPPLER 78956 [facility] VELOCIMET 1 [facility] R[facility] UMBILICAL [place] ARTERY DOPPLER 58747 [facility] VELOCIMET 1 [facility] J RY UMBILICAL ARTERY US PREG 19708 [facility]INS UTERUS 1 [facility] J REAL TIME F/U TRNSABDL PER FETUS 00145 [facility] M[facility]INS BIOPHYSIC 1 [facility] J [facility] J AL PROFILE W/O NON-STRES S TESTING GLUCOSE 17017 YANI LOMELI TOLERANCE 1 [facility] TEST GTT INC INC 3 SPECIMENS GLUCOSE 80781 [facility] TOLERANCE 1 [facility] J TEST GTT CLINIC OF 3 [place] SPECIMENS US PREG 78336 [facility] M[facility] UTERUS 1 [facility] AFTER 1ST CLINIC OF TRIMEST [place] / [place] [address] YANI LOMELI ESTRIOL 1 [facility] INC INC GONADOTRO 35579 YANI LOMELI PIN 1 [facility] CHORIONIC INC INC QUANTITAT EUNICE ALPHA-FET 45422 YANI LOMELI OPROTEIN 1 [facility] SERUM INC INC URNLS DIP 18086 YANI LOMELI 1 [facility] STICK/TAB INC INC LET REAGENT AUTO MICROSCOP Y CULTURE 28704 YANI LOMELI BACTERIAL 1 [facility] INC INC QUANTTATI VE COLONY COUNT URINE URINE 82502 YANI LOMELI 1 [facility] TEST INC INC VISUAL COLOR CMPRSN METHS US PREG 19875 [facility] UTERUS 1 [facility] REAL TIME CLINIC OF W/IMAGE [place] DCMTN TRANSVAG CYTP C/V 78204 PATHOLOGY PATHOLOGY AUTO THIN 1 & & LYR CYTOLOGY CYTOLOGY PREPJ SCR LAB LAB MNL RESCR PHYS IADNA 80711 PATHOLOGY PATHOLOGY CHLAMYDIA 1 & & CYTOLOGY CYTOLOGY TRACHOMAT LAB LAB IS AMPLIFIED PROBE TQ IADNA 89416 PATHOLOGY PATHOLOGY NEISSERIA 1 & & CYTOLOGY CYTOLOGY GONORRHOE LAB LAB AE AMPLIFIED PROBE TQ URINE 79281 YANI LOMELI 1 [facility] CENTER VISUAL COLOR CMPRSN METHS RADIOLOGI 77460 [place] LONI, C EXAM 0 [facility] YFN L [facility] VIEWS FRONTAL&L ATERAL IAADIADOO 38167 [facility] [place], 9 MEDICAL ALICE G INFLUENZA SPECIALIT Y CLINIC RADEX 18104 [place] LONI, HAND 9 [facility] YFN L MINIMUM 3 LLC VIEWS AVULSION 88025 [place] GRENTZ, NAIL 9 [facility] [employer] PARTIAL/C OMPLETE SIMPLE 1 RADEX 42005 [facility] TALI[facility] WRIST 9 MEDICAL SUMI P COMPLETE IMAGING MINIMUM 3 ASSOCIATE VIEWS S RADEX 23760 YANI LOMELI WRIST 2 9 [facility] VIEWS INC INC URINE 41267 YANI LOMELI 9 [facility] TEST INC INC VISUAL COLOR CMPRSN METHS IADNA 22329 Juliette GUSMAN, Juliette STREPTOCO 8 NASEEM Pinzon CCUS PSC GROUP A QUANTIFIC ATION SUSCEPTIB 32352 YANI LOMELI LTY STDY 8 [facility] ANTIMICRB INC INC IAL MICRO/AGA R DILUTJ CUL BACT 30419 YANI LOMELI XCPT 8 [facility] URINE INC INC BLOOD/STO OL AEROBIC ISOL Encounters Encounter Start End Date Code Location Performer Type Date OFFICE 82401 [facility] 7 PHYSICIAN T VISIT S GROUP 15 MINUTES OFFICE 03275 [facility] 7 7 PHYSICIAN T [facility]ISIT S GROUP [address] [facility] YANI - 7 7 [facility] 7 [facility] OFFICE 31486 [facility] OUTPATIEN 7 7 PHYSICIAN T VISIT S GROUP 15 MINUTES OFFICE 55759 [facility] OUTPATIEN 7 7 PHYSICIAN T VISIT S GROUP 15 MINUTES HOSPITAL YANI - 7 7 [facility] 45540 [facility] OUTPATIEN 7 7 PHYSICIAN T VISIT S GROUP [address] [facility] [address] [facility] - 6 6 [facility] T [facility] OFFICE 63761 [facility] 6 6 SHERON T NEW 45 GASTROENT MINUTES EROLOGY [facility] YNAI - 6 6 [facility] OUTPATIEN INC T EMERGENCY 72772 YANI 6 6 [facility] INC T [facility]ISIT LIMITED/M [facility]OR [facility] YANI - 6 6 [facility] INPATIENT INC OFFICE 60298 [facility] OUTPATIEN 6 6 PHYSICIAN [place] J T VISIT S GROUP [address]ES [address] [facility] OUTPATIEN 5 5 PHYSICIAN [place] J T VISIT S GROUP [address]ES [address] [facility] OUTPATIEN 5 5 PHYSICIAN [place] J T VISIT S GROUP 15 MINUTES HOSPITAL YANI - 5 5 [facility] INC T OFFICE 96227 [facility] OUTPATIEN 5 5 PHYSICIAN [place] J T VISIT S GROUP [address] [address] [facility] OUTPATIEN 5 5 PHYSICIAN [place] J T VISIT S GROUP [address]ES [address] [facility] OUTPATIEN 5 5 PHYSICIAN [place] J T VISIT S GROUP [address]ES [address] [facility] OUTPATIEN 5 5 PHYSICIAN [place] J T VISIT S GROUP [address] [facility] OUTPATIEN 5 5 PHYSICIAN [place] J T VISIT S GROUP 15 MINUTES HOSPITAL YANI - 5 5 [facility] OUTPATIEN INC T EMERGENCY 40242 SOT[facility]EAN SOTINGEAN 5 5 U CARLEEN U CARLEEN DEPARTMEN T VISIT HIGH/URGE NT SEVERITY HOSPITAL YANI - 4 4 [facility] INPATIENT INC OFFICE 53503 [facility] OUTPATIEN 4 4 [facility] J T VISIT 15 MINUTES OFFICE 82610 [facility] OUTPATIEN 4 4 [facility] J T VISIT 15 MINUTES HOSPITAL YANI - 4 4 [facility] OUTPATIEN INC T OFFICE 36843 [facility] OUTPATIEN 4 4 [facility] J T VISIT 5 MINUTES OFFICE 62088 [facility] OUTPATIEN 4 4 [facility] J T VISIT 15 MINUTES OFFICE 25804 [facility] OUTPATIEN 4 4 [facility] J T VISIT 15 MINUTES OFFICE 74999 [facility] OUTPATIEN 4 4 [facility] J T VISIT 15 MINUTES OFFICE 17399 [facility] OUTPATIEN 4 4 [place] [facility] J T VISIT 15 MINUTES OFFICE 28302 [facility] OUTPATIEN 4 4 [facility] J T VISIT 15 MINUTES EMERGENCY 15822 EVELYN RIVAS 4 4 III HUNG III HUNG [facility] T VISIT HIGH/URGE NT SEVERITY [facility] 4 [facility] [address] [facility] 4 4 SNEHA T VISIT 15 PHYSICIAN MINUTES [facility] YANI - 3 3 [facility] [address] [place] [place] [facility] 22454 [facility] 3 3 [facility] VISIT MODERATE SEVERITY PERIODIC 94638 [facility] PREVENTIV 3 3 SNEHA E MED EST PATIENT PHYSICIAN 18-39 YRS [facility] ST - 3 3 [facility] EMERGENCY 47518 [facility] 3 3 SNEHA [facility] T VISIT PHYSICIAN HIGH/URGE S NT SEVERITY OFFICE 36668 [facility] 3 3 [facility] T VISIT CLINIC OF 15 [place] MINUTES OFFICE 32146 [facility] M[facility] 3 3 [facility] [place] T VISIT CLINIC OF 15 [place] MINUTES EMERGENCY 67207 [place] BERG 3 3 [facility] T VIS[facility] MODERATE SEVER[facility] YANI - 2 2 [facility] T EMERGENCY 95017 [place] RIVAS 2 2 EMERGENCY III [facility] T VISIT HIGH/URGE NT SEVERITY HOSPITAL YANI - 2 2 [facility] INPATIENT INC OFFICE 87490 [facility] 2 2 [facility] T VISIT CLINIC OF 15 [place] MINUTES OFFICE 87700 [facility] M[facility] OUT[facility]EN 2 2 [facility] [place] [facility] T VISIT CLINIC OF 15 [place] MINUTES OFFICE 78998 [facility] OUT[facility] 2 2 [facility] [place] [facility] T VISIT CLINIC OF 15 [place] MINUTES OFFICE 73285 [facility] M[facility] OUTPAT[facility] 2 2 [facility] [place] [facility] T VISIT CLINIC OF 15 [place] MINUTES OFFICE 80820 [facility] M[facility] OUT[facility] 2 2 [facility] T VISIT CLINIC OF 15 [place] MINUTES HOSPITAL YANI - 2 2 [facility] OUTPATIEN INC T OFFICE 65670 [facility] M[facility] OUT[facility] 2 2 [facility] T VISIT 5 CLINIC OF MINUTES [place] OFFICE 21304 [facility] M[facility] OUTPATIEN 2 2 [facility] [place] T VISIT CLINIC OF 15 [place] MINUTES OFFICE 76641 [facility] M[facility] OUTPAT[facility]EN 2 2 [facility] [place] T VISIT CLINIC OF 15 [place] MINUTES HOSPITAL YANI - 2 2 [facility] OUTPATIEN INC T OFFICE 24185 [facility] OUTPATIEN 2 2 HEALTH T VISIT CLINIC OF 15 [place] MINUTES EMERGENCY 83534 YANI 2 2 [facility] DEPARTMEN INC T VISIT HIGH/URGE NT SEVERITY EMERGENCY 17298 [place] TUCKER DEPT 2 2 EMERGENCY [facility] VISIT SERVICES HIGH SEVERITY& [facility] OUTPATIEN INC T OFFICE 78944 [facility] OUTPATIEN 2 2 HEALTH T VISIT CLINIC OF 15 [place] MINUTES OFFICE 33920 YANI YANI OUTPATIEN 2 2 [facility] HEALTH T VISIT CENTER CENTER 15 MINUTES HOSPITAL YANI - 1 1 [facility] INPATIENT INC OFFICE 93147 [facility] OUTPATIEN 1 1 [place] J T VISIT 15 MINUTES OFFICE 16522 [facility]INS OUTPATIEN 1 1 [place] J [facility] J T VISIT 15 MINUTES OFFICE 24488 [facility]ARTINS OUTPATIEN 1 1 [place] J T VISIT 15 MINUTES OFFICE 45842 [facility] M[facility] OUTPAT[facility]EN 1 1 [facility] T VISIT CLINIC OF 15 [place] MINUTES OFFICE 07912 [facility] M[facility] OUTPATIEN 1 1 [facility] T VISIT CLINIC OF 15 [place] MINUTES OFFICE 31820 [facility] M[facility] OUTPATIEN 1 1 [facility] T VISIT CLINIC OF 15 [place] MINUTES HOSPITAL YANI - 1 1 [facility] OUTPATIEN INC T OFFICE 06310 [facility] OUTPAT[facility] 1 1 [facility] T VISIT 5 CLINIC OF MINUTES [place] OFFICE 73687 [facility] M[facility] OUTPATIEN 1 1 [facility] T VISIT CLINIC OF 15 [place] MINUTES OFFICE 65121 [facility] M[facility] OUTPATIEN 1 1 [facility] T VISIT CLINIC OF 15 [place] MINUTES HOSPITAL YANI - 1 1 [facility] OUTPATIEN INC T OFFICE 62411 [facility] M[facility] OUTPAT[facility] 1 1 [facility] [place] T VISIT CLINIC OF 15 [place] MINUTES EMERGENCY 27564 YANI 1 1 [facility] DEPARTMEN INC T VISIT LOW/MODER SEVERITY HOSPITAL YANI - 1 1 [facility] OUTPATIEN INC T EMERGENCY 78581 [place] CHEUNG 1 1 EMERGENCY JOON DEPARTMEN SERVICES T VISIT HIGH/URGE NT SEVERITY OFFICE 24468 YANI LOMELI OUTPATIEN 1 1 AL [employer] [facility] T NEW 30 CENTER CENTER MINUTES EMERGENCY [address] ST MICHAUD 0 0 SNEHA [facility] T VISIT HIGH/URGE NT SEVERITY OFFICE 90862 [facility] [place], OUTPATIEN 0 0 MEDICAL CAREN O T VISIT SPECIALIT 15 Y CLINIC MINUTES OFFICE 35235 [facility] [place], OUTPATIEN 0 0 MEDICAL CAREN O T VISIT SPECIALIT 15 Y CLINIC MINUTES OFFICE 47323 [facility] [place], OUTPATIEN 0 0 MEDICAL ALICE G T VISIT SPECIALIT 15 Y CLINIC MINUTES OFFICE 75549 [facility] [place], OUTPATIEN 0 0 MEDICAL CAREN O T VISIT SPECIALIT 15 Y CLINIC MINUTES EMERGENCY 33595 [facility] [place], 0 0 [facility] T VISIT LOW/MODER SEVERITY OFFICE 48305 [facility] [place], OUTPATIEN 9 9 MEDICAL ALICE G T VISIT SPECIALIT 15 Y CLINIC MINUTES OFFICE 50788 [facility] [place], OUTPATIEN 9 9 MEDICAL ALICE G T NEW 20 SPECIALIT MINUTES Y CLINIC EMERGENCY 22507 [facility] CHEN 9 9 RIVER P ROSS [facility] T VISIT MODERATE SEVERITY EMERGENCY 54123 [place] 9 9 MED CTR DEPARTMEN T VISIT HIGH/URGE NT SEVERITY HOSPITAL [place] - 9 9 MED CTR OUTPATIEN T EMERGENCY 88935 [place] MAJOR, 9 9 [facility] T VISIT MODERATE ASSOCIATE SEVERITY S [facility] YANI - 9 9 MEM HOS[facility] OUTPATIEN INC T OFFICE 57675 Juliette BRISCOE OUTPATISERENITY 8 8 NASEEM Pinzon T VISIT PSC 15 MINUTES EMERGENCY 43392 RIZ[place]NA KLEIN, [address] [facility] T VISIT ON MODERATE SEVERITY EMERGENCY 95448 YANI 8 8 [facility] T VISIT LOW/MODER SEVERITY HOSPITAL YANI - 8 8 [facility]
--- OUTSIDE RECORDS SUMMARY | 2017-05-24 10:05 | External Medical Summary Rpt ---
Author Author JEREMIAH Azar, JEREMIAH Azar Organization [employer] Address Unknown Phone Unavailable
--- OUTSIDE RECORDS SUMMARY | 2017-05-24 10:05 | External Medical Summary Rpt ---
Author Author , JEREMIAH DANIELS Address Unknown Phone [email or web address] Immunization Name Date Rout CVX Reac Dose Comm Prov Is Faci e tion ent ider Refu lity Give sed n MMR 09-0 3 999 Hist H149 No H149 8-19 oric 98 al Info rmat ion - Sour ce Unsp ecif ied Antonino 09-0 2 999 Hist H149 No H149 o-OP 8-19 oric V 98 al Info rmat ion - Sour ce Unsp ecif ied DTaP 09-0 107 999 Hist H149 No H149 , UF 8-19 oric 98 al Info rmat ion - Sour ce Unsp ecif ied Hep 09-2 8 999 Hist H149 No H149 B, 4-19 oric ped/ 97 al adol Info rmat ion - Sour ce Unsp ecif ied MMR 04-2 3 999 Hist H149 No H149 9-19 oric 96 al Info rmat ion - Sour ce Unsp ecif ied DTP- 04-2 22 999 Hist H149 No H149 Hib 9-19 oric 96 al Info rmat ion - Sour ce Unsp ecif ied
--- OUTSIDE RECORDS SUMMARY | 2017-05-24 10:05 | External Medical Summary Rpt ---
Author Author , JEREMIAH DANIELS Address Unknown Phone [email or web address] Immunization Name Date Rout CVX Reac Dose [...]
== END 2017-05-23 18:05 | disposition home or self-care (01) ==
LOC: OB 17:02 → OBOUT 17:02 → OB 17:03 → OBOUT 19:26 → OB 19:28
PROVIDERS: Nurse Practitioner Obstetrics & Gynecology
DX: O60.03 Preterm labor without delivery, third trimester (principal); Z3A.33 33 weeks gestation of pregnancy
CPT/HCPCS: G0378

== ENCOUNTER → 2017-06-15 | Outpatient (CLI) | payer MEDICAID ==
[~2017-06-15] MED LIST changes: +IRON325 M2 PO
--- NOTE | 2017-06-19 15:04 | RADIOLOGY REPORT PS360 ---
US PREG FOLLOWUP SINGLE FETUS: INDICATION: SGA ORDERING PHYSICIAN: Gabriel Mao MD PATIENT AGE: 22 years TECHNIQUE: ultrasound transabdominal scanning . COMPARISON: 02/19/2017 ultrasound at which time average ultrasound age is 20 weeks 1 day FINDINGS: Single viable intrauterine gestation. Cephalic position Currently. Placenta: Anterior placenta grade 1. And satisfactory on today's images with small venous barrett along the inner margin. But also prominent venous structures beneath the placenta superiorly into the right. There is average amount fluid. The cervix appears satisfactory. Closed and measuring 3 cm in length. Limited survey performed and was unremarkable on the submitted images as in PACS. No discrete anomalies identified on survey imaging by technologist. Active fetus.Three-vessel cord with satisfactory umbilical cord insertion. Survey of brain & ventricles & posterior fossa limited today but unremarkable Diaphragm and chest views unremarkable.4- chamber heart imaged.. Abdomen: Both kidneys noted & unremarkable... .. Appears to be a female fetus. Amniotic Fluid: Adequate. Maternal adnexa: No significant findings encountered. Measurements: Gestational Age 36 weeks 3 days...... based on LMP 10/03/2016.. Average ultrasound age 32 weeks 4 days. Note that the lower femur length is the primary component of the lower gestational age 36 weeks 3 days The discrepancy from gestational age it is noted and may reflect less than anticipated growth Estimated current weight 1913 grams. BPD = 33 weeks 4 days OFD = 35 week 1 day HC = 34 weeks 0 day AC = 33 week 4 day FL = 28 week 6 day-(*this may be an measurement aberration as a femur length was less than than 4 days behind head measurements on the prior 02/19/2017 ultrasound) Humerus = 34 weeks 4 days Heart Rate = 133 BPM SD ratio 3.2. Ri = 0.69 MIGUELITO = 16.19... Largest pocket at RUQ 5.56 cm. Biophysical Profile: 8 of possible 8 points 2+ scoring for each category movement, breathing, tone & amniotic fluid IMPRESSION: Single viable gestation and Cephalic presentation. Biophysical profile 8 of 8 points Anterior placenta appears overall satisfactory on today's follow-up ultrasound. Modest venous barrett noted along its inner margin. Generous vein, beneath the placenta superiorly. . Average ultrasound age 32 wks 4 days today...., With Gestational Age 36 wks 3 days...... (Note femur length over 5 wks less than head measurements on today study.. However this could be be an measurement aberration as a femur length less than 4 days behind head measurements on the prior 02/19/2017.) .
== END ==
LOC: RAD 12:51
DX: O36.5131 Maternal care for known or suspected placental insufficiency, third trimester, fetus 1 (principal)

== ENCOUNTER 2017-07-04 01:56 | Inpatient (IN) | payer MEDICAID ==
[~2017-07-04] VITALS: Ht 160 cm; Wt 58.1 kg
[2017-07-04 05:50] VITALS: BP 110/70
[2017-07-04 06:36] LABS: LYMPH # 2.7 K/mm3 (0.7-4.5); LYMPH % 22.5 % (10-50.0)
[2017-07-04 06:42] LABS: HEMOGLOBIN 12.8 g/dL (12.2-16.2)
[2017-07-04 07:05] LABS: ABO BLOOD TYPE O; RH BLOOD TYPE POSITIVE
[2017-07-04 07:30] VITALS: BP 111/58
--- NOTE | 2017-07-04 07:30 | LABOR NOTE ---
Laboring Subjective Subjective Date 07/04/17 Time 0728 Subjective: Pt is having regular contractions Laboring Objective Objective NST: Reactive Contractions: q 2-3 minutes Cervical dilation: 3 Effacement: 75% Station: -1 Membranes are: Intact Fetus monitoring? Yes Type: External Laboring Assessment Assessment Progressing? Yes Cephalopelvic disproportion? No Problem List: 1. Vaginal delivery Status Acute Laboring Plan Plan Anethesia for epidural? Yes Continue to labor down? Yes Plan for ? No Continue to monitor? Yes Start pushing? No at 7155
--- NOTE | 2017-07-04 08:48 | LABOR NOTE ---
Laboring Subjective Subjective Date 07/04/17 Time 0846 Subjective: Pt is having regular contractions Laboring Objective Objective NST: Non-reactive Contractions: q 2-3 minutes Cervical dilation: 4 Effacement: 75% Station: -1 Membranes are: Artificially ruptured (with clear fluid) Fetus monitoring? Yes Type: Internal Laboring Assessment Assessment Progressing? Yes Cephalopelvic disproportion? No Problem List: 1. Abnormal heart rate Laboring Plan Plan Anethesia for epidural? Yes Continue to labor down? No Plan for ? Yes Continue to monitor? Yes Start pushing? No Comment: She has prolonged bradycardia. Despite turning the patient from side to side, inserting an IUPC and heart rate monitor on the baby's head the heart rate continues to be low. She had clear fluid when I ruptured her membranes. She was having a slightly low heart rate prior to this. As result of that we will go ahead with a . I discussed the risks of surgery that includes bleeding, infection, injuries to the bowel and bladder with the patient and her . All questions were answered and consents were signed. at 0827
--- NOTE | 2017-07-04 09:35 | Operative Note ---
Procedure/Operative Record Procedure Date of procedure: 07/04/17 Pre-Op Dx: Extended bradycardia Post-Op Dx: Extended bradycardia Procedure performed: Emergent primary lower segment transverse section Surgeon: Dr. Gabriel Mao Umbrella Frame Maker(s): Zuleima Page Anesthesia: Pedro Lombardo EBL (ml): 800 Clinical note: She is a 22-year-old 6 para 4 aborta 1 who was 39+ weeks gestational age. She was known to have a small for gestational age infant and as result that we elected to bring her in for induction of labor at term. She had her membranes ruptured and shortly thereafter had extended bradycardia. There was no evidence of cord prolapse. We elected to place a scalp electrode as well as an IUPC. Despite this she continued to have bradycardia in the 80s to 90s. She had some episodes of bradycardia into the 40s. The heart rate did not really recovered beyond 100 bpm so we elected to perform a primary lower segment transverse section. The risks and benefits of surgery were discussed with the patient and her . Operative findings: She delivered a live-born female child at 9:04 AM on the morning of June. The baby had Apgars of 8 at 1 minute and 9 at 5 minutes. Baby appeared normal. The umbilical cord seemed to be wrapped a couple of times around the baby's feet but there was no other evidence of any abnormalities. The ovaries and tubes appeared normal. Operative note: She was taken to the operating room where epidural anesthesia was found be adequate. She was prepped and draped in normal sterile fashion in the supine position with a leftward tilt. A Han catheter was in the bladder. A Pfannenstiel skin incision was made with knife then carried through to the underlying layer of fascia with knife. The fascia was opened in the midline with knife and extended laterally using Holbrook scissors. Miah clamps were applied to the superior aspect of the fascial incision which was tented up and the underlying rectus muscles dissected off using Holbrook scissors. The [place] clamps were then applied to the inferior aspect of the fascial incision which in a similar fashion was tented up and the underlying rectus muscles dissected off using Holbrook scissors. The rectus muscles were then in the midline, the peritoneum identified, and entered sharply with Holbrook scissors. This incision was then extended superiorly and inferiorly with Holbrook scissors. We had good visualization of the bladder inferiorly. The bladder peritoneum was then opened in the midline and extended laterally using Holbrook scissors. A bladder flap was created digitally. The lower blade of the Bharathi was inserted so as to push the bladder out of the way. Transverse incision was made through the uterine muscle to the amnion. This incision was then extended laterally using fingers traction. The amnion was entered sharply with knife. The 's head was then delivered atraumatically. This was followed by the anterior shoulder and the rest of the 's body atraumatically. The oropharynx and nasopharynx were bulb suctioned. The infant was then handed off to Dr. Alicea who assigned Apgars of 8 at 1 minute and 9 at 5 minutes. We then obtained cord blood as well as cord pH. The pH was 7.34. Using gentle traction on the cord and countertraction on the fundus I was able to easily deliver the placenta intact. It had a normal three-vessel cord. The uterus was then cleared of clots and debris and exteriorized from the abdominal cavity. The uterine incision was then closed using running 0 Vicryl suture in a locked fashion. A second layer of the same suture was used to imbricate the first layer. The bladder peritoneum was then closed using running 2-0 Vicryl suture in a locked fashion. The gutters and cul-de-sac were then cleared of clots and debris and the uterus was returned the abdominal cavity. Once again hemostasis was assured. The peritoneum was grasped with Xenia clamps and closed using running 2-0 Vicryl suture. The rectus muscles were then reapproximated using running 0 Vicryl suture. The fascia was closed using running #1 Vicryl suture. The subcutaneous tissues were then irrigated with warm water followed by closure Misael's fascia using running 2-0 Monocryl suture. The skin was closed with nia. I then clean the incision twice with Hibiclens. Sterile dressings were applied. She tolerated the procedure well and was taken to the recovery room in excellent condition. All sponges minute and needle counts were correct. Estimate a blood loss was approximately 800 mL. Conplications: None Specimens: Products of conception at 0980
--- NOTE | 2017-07-04 09:43 | Anesthesia Record ---
Anesthesia Record Part II Discharge time: 1005 Destination: OB PACU nurse assessment review? Yes Patient is: Stable Anesthesia complications? No at 0943
--- NOTE | 2017-07-04 09:43 | Anesthesia Record ---
Anesthesia Record Part I Total IV fluids: 1100 EBL (ml): 800 Urine Output: 325 B/P: 114/56 % SaO2: 98 Pulse: 99 Resps: 16 Temp: 97.3 Patient is: Awake, Stable Stable to PACU at: 0935 at 0942
[2017-07-04 11:20] LABS: URINE BILIRUBIN - DIPSTICK NEGATIVE (NEG); URINE BLOOD NEGATIVE (NEG)
[2017-07-04 19:20] VITALS: BP 104/55
[2017-07-05 07:17] LABS: HEMOGLOBIN 8.6 g/dL (12.2-16.2)
[2017-07-05 08:07] VITALS: BP 108/56
--- NOTE | 2017-07-05 08:23 | ACUTE CARE PROGRESS NOTE (QUA) ---
Progress Notes Subjective Date 07/05/17 Time 0818 Note She is doing very well. She is eating and drinking and ambulating. She is breast feeding. Her lochia is normal. Patient/family reports: feeling better, no complaints Objective Findings Last VS-Temp:98.3 B/P:104/55 Pulse:80 Resp:18 SaO2:99 ROOM AIR Last weight lbs:128 oz:0 K.060 Method:Stated Laboratory Tests 07/05/17 0617: Hgb 8.6 L, Hct 26.1 L 07/04/17 0912: Cord Blood pH 7.34 L Exam General appearance: normal appearance, alert, awake, no acute distress Reviewed: vital signs, lab results Assessment/Plan Problem List 1. Abnormal heart rate 2. delivery delivered Patient condition Improving, Stable Plan: continue current care This inpt stay is expected to cross 2 MNs from start of care Yes Comments: She is doing very well this morning. We will plan to send her home in 48 hours. at 0852
[2017-07-05 23:16] VITALS: BP 110/59
--- NOTE | 2017-07-06 10:10 | ACUTE CARE PROGRESS NOTE (QUA) ---
Progress Notes Subjective Date 07/06/17 Time 1008 Note She is doing very well. She is eating and drinking and ambulating. She is breast -feeding. Her lochia is normal. Patient/family reports: feeling better, no complaints Objective Findings Last VS-Temp:98.8 B/P:110/59 Pulse:74 Resp:16 SaO2:99 ROOM AIR Last weight lbs:128 oz:0 K.060 Method:Stated Exam General appearance: normal appearance, alert, awake, no acute distress Reviewed: vital signs, lab results Assessment/Plan Problem List 1. Abnormal heart rate 2. delivery delivered Patient condition Improving, Stable Plan: continue current care This inpt stay is expected to cross 2 MNs from start of care Yes Comments: She is doing very well and we'll plan to send her home tomorrow. at 1009
[2017-07-06 20:26] VITALS: BP 118/65
[2017-07-07 08:00] VITALS: BP 105/62
[2017-07-07] MEDS ORDERED: HYDROCODONE-APA1 TA2 PO (11:05)
[2017-07-07] MEDS ORDERED: MOTRIN 400MG.400 MG PO (11:05)
--- NOTE | 2017-07-07 11:07 | ACUTE CARE PROGRESS NOTE (QUA) ---
Progress Notes Subjective Date 07/07/17 Time 1106 Note She continues to do very well. She is eating and drinking and ambulating. She is breast-feeding. Her lochia is normal. Patient/family reports: feeling better, no complaints Objective Findings Last VS-Temp:98.8 B/P:105/62 Pulse:77 Resp:18 SaO2:99 ROOM AIR Last weight lbs:128 oz:0 K.060 Method:Stated Exam General appearance: normal appearance, alert, awake, no acute distress Reviewed: vital signs, lab results Assessment/Plan Problem List 1. Abnormal heart rate 2. delivery delivered Patient condition Improving, Stable Plan: continue current care, initiate discharge plan This inpt stay is expected to cross 2 MNs from start of care Yes Comments: She is doing very well this morning. We will plan to send her home today. at 1107
--- NOTE | 2017-07-07 11:10 | Discharge Summary ---
Discharge Summary Admission date: 07/04/17 Discharge date: 07/07/17 Discharge diagnoses: Term , intrauterine growth restriction, abnormal heart rate with prolonged bradycardia, primary lower segment transverse section Clinical note: She is a 22-year-old 6 now para 5 aborta 1 who is 39 and 1 weeks gestational age. She was brought in for induction of labor because of small for gestational age infant. She was started on IV oxytocin had her membranes ruptured. She had severe decelerations despite receiving oxygen as well as change in position. She had bradycardia into the 40s at 1 point. As result of this we elected to perform a primary lower segment transverse uterine section for a nonreassuring heart rate tracing. Course in hospital: She underwent a primary lower segment transverse section and delivered a live-born female child at 9:04 AM on the morning of July 04, 2017. The baby had Apgars of 8 at 1 minute and 9 at 5 minutes. The weight was 6 lbs. 10 oz. and she was 19 inches long. She has done well post Frederica and has remained afebrile throughout her hospitalization. She is eating and drinking and ambulating. She is breast-feeding. She has O positive blood, she is rubella immune and was group B streptococcus negative. Laboratory Tests 07/04/17 0535: WBC 12.2, RBC 4.46, MCV 85.9, RDW 14.3, Plt Count 331, MPV 7.8, Gran % 69.1, Gran # 8.4, Lymphocytes % 22.5, Monocytes % 5.3, Eosinophils % 2.6, Basophils % 0.4, Lymphocytes # 2.7, Monocytes # 0.7, Eosinophils # 0.3, Basophils # 0.1, PUBS MCHC 33.0, Antibody Screen NEGATIVE, Miscellaneous Test POSITIVE 07/04/17 0535: MCH 28.4 07/04/17 0720: Urine Color YELLOW, Urine Appearance CLEAR, Urine pH 7.5, Ur Specific [place] 1.010, Urine Protein NEGATIVE, Urine Ketones NEGATIVE, Urine Blood NEGATIVE, Urine Nitrate NEGATIVE, Urine Bilirubin NEGATIVE, Urine Urobilinogen 0.2, Ur Leukocyte Esterase NEGATIVE, Urine RBC NONE, Urine WBC NONE, Ur Squamous Epith Cells 3-5, Urine Bacteria NONE, Urine Glucose NEGATIVE 07/04/17 0912: Cord Blood pH 7.34 07/05/17 0617: Hgb 8.6, Hct 26.1 Plans for ongoing care: She is discharged home to follow-up with me in approximately 2 weeks' time. Discharge medications She'll continue with her vitamins and iron. She was given a prescription for Lortab 7.5/325, 30 tablets as well as ibuprofen 400 mg, 40 tablets. DC/follow-up instructions She was given the usual instructions with respect to limiting her activity, driving and sexual activity. She was given instructions with respect to wound care. Condition at discharge Stable and improved. at 1110
== END 2017-07-07 11:50 | disposition home or self-care (01) | DRG 765 ==
LOC: OB 01:56
PROVIDERS: Nurse Practitioner Obstetrics & Gynecology
PROC: 10D00Z1 Extraction of Products of Conception, Low, Open Approach (ICD-10-PCS; principal; 2017-07-04 08:30)
DX: O76 Abnormality in fetal heart rate and rhythm complicating labor and delivery (principal); O36.5930 Maternal care for other known or suspected poor fetal growth, third trimester, not applicable or unspecified; Z37.0 Single live birth; Z3A.39 39 weeks gestation of pregnancy
CPT/HCPCS: C1758; G0238; J2405